=== PATIENT | male | born 1955 | race Hispanic/Latino ===

== ENCOUNTER 2019-01-07 16:16 | Emergency (ER) | payer SELFPAY ==
[2019-01-07 17:48] LABS: Absolute Lymphocytes (CBC) 1.8 K/uL (0.7-4.9); Basophils % 0.3 % (0-1.3); Hematocrit 40.2 % (39.6-49.0); Lymphocytes % 22.6 % (15.3-44.8); MPV 8.5 fL (7.6-11.3); RBC Red Blood Cell Count 4.31 M/uL (4.33-5.43)
[2019-01-07 17:52] LABS: Protime INR 1.12
--- NOTE | 2019-01-07 17:57 | RAD REPORT ---
EXAM DESCRIPTION: RAD - Chest Single View - 01/07/2019 5:47 pm CLINICAL HISTORY: weakness Chest pain. COMPARISON: No comparisons FINDINGS: Portable technique limits examination quality. Mild linear atelectasis is present in the right lung base. The lungs are otherwise clear. The heart i s normal in size. Old bilateral posterior rib fractures and right clavicular fracture seen. IMPRESSION: No acute intrathoracic process suspected.
--- NOTE | 2019-01-07 18:01 | RAD REPORT ---
EXAM DESCRIPTION: RAD - Forearm Right - 01/07/2019 5:47 pm CLINICAL HISTORY: fall 2 days ago;Pain COMPARISON: <Comparisons> FINDINGS: No acute fracture seen.
--- NOTE | 2019-01-07 18:01 | RAD REPORT ---
EXAM DESCRIPTION: RAD - Forearm Left - 01/07/2019 5:47 pm CLINICAL HISTORY: fall 2 days ago;Pain COMPARISON: <Comparisons> FINDINGS: No acute fracture seen.
[2019-01-07] MEDS ORDERED: NA CHLORIDE 0.9% 1,000 ML ONE (18:08)
[2019-01-07] MEDS ORDERED: ONDANSETRON 4 MG/2 ML VIAL ONE (18:08)
[2019-01-07] MEDS ORDERED: FENTANYL CITR 100 MCG/2 ML ONE (18:08)
[2019-01-07 19:56] LABS: ALT/SGPT 41 U/L (12-78); Albumin 3.4 g/dL (3.4-5.0); Alkaline Phosphatase 106 U/L (45-117); Bicarbonate 23 mmol/L (21-32); Bilirubin Total 0.7 mg/dL (0.2-1.0); Glucose Level 88 mg/dL (74-106); NT PRO-BNP 135 pg/mL (<125); Protein, Total 7.4 g/dL (6.4-8.2); Sodium Level 139 mmol/L (136-145); Troponin (Emerg Dept Use Only) < 0.02 ng/mL (0.0-0.045)
[2019-01-07 19:58] LABS: AST/SGOT 38 U/L (15-37); Potassium 3.8 mmol/L (3.5-5.1)
[2019-01-07 20:00] LABS: BUN Blood Urea Nitrogen 22 mg/dL (7-18)
[2019-01-07 20:01] LABS: Bilirubin Direct 0.2 mg/dL (0-0.2)
--- NOTE | 2019-01-07 20:45 | RAD REPORT ---
EXAM DESCRIPTION: CT - Head C Spine Cap Cameron Alarcon - 01/07/2019 8:25 pm CLINICAL HISTORY: Trauma, head and neck injury. Chest, abdomen and pelvis pain. fall;Pain COMPARISON: No comparisons TECHNIQUE: CT head without contrast. CT cervical spine without contrast with coronal and sagittal reformatted images. CT chest, abdomen and pelvis with IV contrast (approximately 100 mL nonionic IV contrast) with young l and sagittal reformatted images of the spine. All CT scans are performed using dose optimization technique as appropriate and may include automated exposure control or mA/KV adjustment according to patient size. FINDINGS: CT HEAD WITHOUT CONTRAST: No intracranial hemorrhage, hydrocephalus or extra-axial fluid collection. Mild generalized brain atr ophy. No areas of brain edema or midline shift. The paranasal sinuses and mastoids are clear. The calvarium is intact. CT CERVICAL SPINE WITHOUT CONTRAST: No acute fracture or subluxation. 3 mm degenerative anterolisthesis is present of C3 on 4 and C4 on 5 . Disc thinning with posterior osteophyte is present at C5-6. 4 mm degenerative retrolisthesis of C6 on 7. The prevertebral soft tissues are normal in thickness. CT CHEST, ABDOMEN, PELVIS WITH CONTRAST: Linear subsegmental atelectasis is seen in both posterior lung bases.Several healed bilateral rib fra ctures are seen involving the posterior thoracic ribs. Old right clavicular fracture also noted.No pn eumothorax or pericardial/pleural fluid. No evidence of intra-abdominal visceral injury, free fluid or free air. No concerning pelvic findings. Mild lumbar spondylosis is present. An acute fracture is not seen. IMPRESSION: Negative for acute traumatic findings.
--- NOTE | 2019-01-07 21:35 | ER ---
Nurse's Notes [facility] Name: Ramírez Joyner Age: 63 yrs Sex: Male : 1955 Arrival Date: 01/07/2019 Time: 16:18 Bed 17 Private MD: Diagnosis: Headache;Fall on same level from slipping, tripping and stumbling;Pain in right forearm;Pain in left forearm;Generalized abdominal pain Presentation: 01/07 16:20 Presenting complaint: Patient states: headache has been intermittent, abd tightness. sv Reports that he fell a couple of days ago. Transition of care: patient was not received from another setting of care. Onset of symptoms was January 07, 2019. Risk Assessment: Do you want to hurt yourself or someone else? Patient reports no desire to harm self or others. Care prior to arrival: None. 16:20 Method Of Arrival: Wheelchair sv 16:20 Acuity: DEBBIE 3 sv 16:56 Initial Sepsis Screen: Does the patient meet any 2 criteria? No. Patient's initial tw2 sepsis screen is negative. Does the patient have a suspected source of infection? No. Patient's initial sepsis screen is negative. Historical: - Allergies: 16:21 No Known Allergies; sv - PMHx: 16:21 CVA; sv - PSHx: 16:21 stomach ulcer; sv - Immunization history:: Adult Immunizations. - Social history:: Smoking status: . - Ebola Screening: : Patient denies travel to an Ebola-affected area in the 21 days before illness onset. Screenin:55 Abuse screen: Denies threats or abuse. Nutritional screening: No deficits noted. tw2 Tuberculosis screening: No symptoms or risk factors identified. Fall Risk Secondary diagnosis (15 points) impaired mobility, CVA. Assessment: 17:10 General: Appears in no apparent distress. uncomfortable, Behavior is calm, cooperative, aj1 appropriate for age. Pain: Complains of pain in face, abdomen, right arm and left arm Pain does not radiate. Pain currently is 10 out of 10 on a pain scale. Pain began 2-3 days ago. Neuro: Level of Consciousness is awake, alert, obeys commands, Oriented to person, place, time, situation, Receiving Team Member are weak bilaterally Speech is normal, Facial droop on right, Reports dizziness, headache. Cardiovascular: Heart tones S1 S2 present Patient's skin is warm and dry. Rhythm is regular. Respiratory: Airway is patent Respiratory effort is even, unlabored, Respiratory pattern is regular, symmetrical, Breath sounds are clear bilaterally. GI: Abdomen is flat, non-distended, Bowel sounds present X 4 quads. Abd is soft X 4 quads Abdomen is tender to palpation X 4 quads. Reports nausea, Patient currently denies diarrhea, vomiting. : No signs and/or symptoms were reported regarding the genitourinary system. EENT: No signs and/or symptoms were reported regarding the EENT system. Derm: No signs and/or symptoms reported regarding the dermatologic system. Skin is pink, warm \T\ dry. normal. Musculoskeletal: No signs and/or symptoms reported regarding the musculoskeletal system. Circulation, motion, and sensation intact. 18:10 Reassessment: Patient appears in no apparent distress at this time. No changes from [facility] previously documented assessment. Patient and/or family updated on plan of care and expected duration. Pain level reassessed. Patient is alert, oriented x 3, equal unlabored respirations, skin warm/dry/pink. 19:30 Reassessment: Patient appears in no apparent distress at this time. No changes from previously documented assessment. Patient and/or family updated on plan of care and expected duration. Pain level reassessed. Patient is alert, oriented x 3, equal unlabored respirations, skin warm/dry/pink. 20:51 Reassessment: Patient appears in no apparent distress at this time. No changes from previously documented assessment. Patient and/or family updated on plan of care and expected duration. Pain level reassessed. Patient is alert, oriented x 3, equal unlabored respirations, skin warm/dry/pink. 21:31 Reassessment: Patient appears in no apparent distress at this time. No changes from previously documented assessment. Patient and/or family updated on plan of care and expected duration. Pain level reassessed. Patient is alert, oriented x 3, equal unlabored respirations, skin warm/dry/pink. Provider at bedside explaining POC. Vital Signs: 16:21 BP 115 / 73; Pulse 70; Resp 18; Temp 97; Pulse Ox 99% ; Weight 61.23 kg; Height 5 ft. 5 sv in. (165.10 cm); 19:00 BP 151 / 80; Pulse 62; Resp 18; Pulse Ox 97% on R/A; aj1 20:30 BP 159 / 77; Pulse 65; Resp 18; Pulse Ox 97% ; wh 21:32 BP 139 / 77; Pulse 65; Resp 18; Pulse Ox 98% ; wh 16:21 Body Mass Index 22.46 (61.23 kg, 165.10 cm) sv ED Course: 16:18 Patient arrived in ED. mr 16:21 Triage completed. sv 16:21 Arm band placed on. sv 16:52 Bed in low position. Call light in reach. Side rails up X 1. Adult w/ patient. tw2 16:54 Ethan Levin PA is PHCP. cp 16:54 Ethan Bullock MD is Attending Physician. cp 17:09 Aracelis Mcdonald, JANETH is Primary Nurse. aj1 17:10 No provider procedures requiring assistance completed. aj1 17:29 Radiology exam delayed due to lab results not completed at this time. (BUN/Creatinine). me 17:35 Initial lab(s) drawn, by me, sent to lab. Missed attempt(s): 20 gauge in right forearm. mh5 17:36 Lipase Sent. mh5 17:36 Basic Metabolic Panel Sent. 5 17:36 CBC with Diff Sent. 5 17:36 LFT's Sent. 5 17:36 Magnesium Sent. 5 17:36 NT PRO-BNP Sent. 5 17:36 PT-INR Sent. 5 17:36 Troponin (emerg Dept Use Only) Sent. 5 17:48 XRAY Chest (1 view) In Process Unspecified. EDMS 17:48 XRAY Forearm LEFT In Process Unspecified. EDMS 17:48 XRAY Forearm RIGHT In Process Unspecified. EDMS 18:00 EKG done, by senior environmental technician. reviewed by Ethan LEON. cox monett 18:25 Radiology exam delayed due to lab results not completed at this time. (BUN/Creatinine). sj 18:46 Radiology exam delayed due to lab results not completed at this time. (BUN/Creatinine). 19:02 Note: labs recollect needed. Radiology exam delayed due to lab results not completed at this time. (BUN/Creatinine). 19:16 Lab(s) recollected, by me, sent to lab. [facility] 19:20 Radiology exam delayed due to lab results not completed at this time. (BUN/Creatinine). 19:33 Radiology exam delayed due to lab results not completed at this time. (BUN/Creatinine). me 19:43 Mitchell Benavidez MD is Attending Physician. 20:26 CT Traumagram (Head C Spine CAP W Con) In Process Unspecified. EDMS 20:26 CT completed. Patient tolerated procedure well. Patient moved to CT. Patient moved back me from CT. 22:10 IV discontinued, intact, bleeding controlled, No redness/swelling at site. Administered Medications: 18:17 Drug: NS 0.9% 500 ml Route: IV; Rate: bolus; Site: right antecubital; [facility] 22:10 Follow up: Response: No adverse reaction; IV Status: Completed infusion 18:17 Drug: NS 0.9% 1000 ml Route: IV; Rate: 100 ml/hr; Site: right antecubital; aj 22:10 Follow up: Response: No adverse reaction; IV Status: Completed infusion 18:17 Drug: fentaNYL (PF) 25 mcg {Note: RASS score 0.} Route: IVP; Site: right antecubital; [facility] 22:10 Follow up: Response: No adverse reaction; Pain is decreased; RASS: Alert and Calm (0) 18:18 Drug: Zofran 4 mg Route: IVP; Site: right antecubital; [facility] 22:16 Follow up: Response: No adverse reaction; Nausea is decreased 21:45 Drug: Tylenol 650 mg Route: PO; 22:16 Follow up: Response: No adverse reaction 21:47 Drug: Ibuprofen 600 mg Route: PO; 22:16 Follow up: Response: No adverse reaction Outcome: 21:34 Discharge ordered by . 22:09 Discharged to home via wheelchair, with family. 22:09 Condition: stable 22:09 Discharge instructions given to patient, family, Instructed on discharge instructions, follow up and referral plans. POC Abdominal pain Demonstrated understanding of instructions, follow-up care, POC 22:17 Patient left the ED. Signatures: Dispatcher [employer] EDMS Aracelis Mcdonald RN RN aj1 Naomi Tsang RN RN sv Rivera, Jaqueline Garner, Ethan Maya PA PA cp Wise, Tara, RN RN 2 Tree Steele [facility] Cyn Still Shakira 3 Corrections: (The following items were deleted from the chart) 16:22 16:20 Presenting complaint: Patient states: headache has been intermittent, abd sv tightness. sv
--- NOTE | 2019-01-07 21:35 | EDPHYS ---
Physician Documentation [facility] Name: Ramírez Joyner Age: 63 yrs Sex: Male : 1955 Arrival Date: 01/07/2019 Time: 16:18 Bed 17 Private MD: ED Physician Mitchell Benavidez HPI: 01/07 17:15 This 63 yrs old Male presents to ER via Wheelchair with complaints of cp Abdominal Pain, Headache. 17:15 The patient presents with abdominal pain that is diffuse. Onset: The symptoms/episode cp began/occurred 2 day(s) ago. 17:15 Associated signs and symptoms: Pertinent positives: headache, Pertinent negatives: cp blood in stools, chest pain, constipation, diarrhea, dysuria, fever, palpitations, testicular pain. Severity of pain: in the emergency department the pain is unchanged. Patient reports fall from standing 2 days ago with pain to right forearm and left forearm. Historical: - Allergies: 16:21 No Known Allergies; sv - PMHx: 16:21 CVA; sv - PSHx: 16:21 stomach ulcer; sv - Immunization history:: Adult Immunizations. - Social history:: Smoking status: . - Ebola Screening: : Patient denies travel to an Ebola-affected area in the 21 days before illness onset. ROS: 17:20 Constitutional: Negative for body aches, chills, fever, poor PO intake. cp 17:20 Eyes: Negative for injury, pain, redness, and discharge. cp 17:20 ENT: Negative for drainage from ear(s), ear pain, sore throat, difficulty swallowing, difficulty handling secretions. 17:20 Neck: Positive for tenderness, Negative for pain with movement, stiffness. 17:20 Cardiovascular: Positive for palpitations, Negative for chest pain. 17:20 Respiratory: Negative for cough, shortness of breath, wheezing. 17:20 Abdomen/GI: Positive for abdominal pain, Negative for vomiting, diarrhea, constipation, black/tarry stool, rectal bleeding. 17:20 Skin: Negative for rash. 17:20 Neuro: Positive for headache, Negative for altered mental status, syncope, weakness. 17:20 All other systems are negative. Exam: 17:25 Constitutional: The patient appears in no acute distress, alert, awake, cp non-diaphoretic, non-toxic, well developed, frail. 17:25 Head/face: Noted is abrasion(s), that are mild, of the forehead, right cheek and left cp cheek, Sinus tenderness, is not appreciated. 17:25 Eyes: Periorbital structures: swelling, is not appreciated, ecchymosis, is not appreciated, Pupils: equal, round, and reactive to light and accomodation, Extraocular movements: intact throughout, Conjunctiva: normal, no exudate, no injection, Lids and lashes: appear normal, bilaterally. 17:25 ENT: External ear(s): are unremarkable, Ear canal(s): are normal, clear, TM's: bulging, is not appreciated, bilaterally, dullness, bilaterally, erythema, is not appreciated, bilaterally, Nose: is normal, Mouth: Lips: moist, Oral mucosa: pink and intact, moist, Posterior pharynx: is normal, airway is patent, no erythema, no exudate. 17:25 Neck: C-spine: C-collar placed in ED, vertebral tenderness, that is mild, appreciated at C5 and C6, crepitus, is not appreciated. 17:25 Chest/axilla: Inspection: normal, Palpation: crepitus, is not appreciated, tenderness, is not appreciated. 17:25 Cardiovascular: Rate: normal, Rhythm: regular, Pulses: Pulses are 2+ in right radial artery and left radial artery. Edema: is not appreciated, JVD: is not appreciated. 17:25 Respiratory: the patient does not display signs of respiratory distress, Respirations: normal, no use of accessory muscles, no retractions, no splinting, no tachypnea, labored breathing, is not present, Breath sounds: are clear throughout, no decreased breath sounds, no stridor, no wheezing. 17:25 Abdomen/GI: Inspection: abdomen appears normal, Bowel sounds: active, all quadrants, Palpation: soft, in all quadrants, moderate abdominal tenderness, in all quadrants, rebound tenderness, is not appreciated, voluntary guarding, is elicited in all quadrants. 17:25 Back: pain, that is mild, ROM is painful, vertebral tenderness, is not appreciated. 17:25 Musculoskeletal/extremity: Extremities: grossly normal except: noted in the left forearm and right forearm: pain, tenderness, There is no evidence of deformity, Pulses: noted to be 2+ in the right radial artery and left radial artery. 17:25 Skin: no rash present. 17:25 Neuro: Orientation: to person, place \T\ time. Mentation: is normal, Motor: no acute changes, Sensation: no obvious gross deficits. 17:47 ECG was reviewed by the Attending Physician. Vital Signs: 16:21 BP 115 / 73; Pulse 70; Resp 18; Temp 97; Pulse Ox 99% ; Weight 61.23 kg; Height 5 ft. 5 sv in. (165.10 cm); 19:00 BP 151 / 80; Pulse 62; Resp 18; Pulse Ox 97% on R/A; aj1 20:30 BP 159 / 77; Pulse 65; Resp 18; Pulse Ox 97% ; wh 21:32 BP 139 / 77; Pulse 65; Resp 18; Pulse Ox 98% ; wh 16:21 Body Mass Index 22.46 (61.23 kg, 165.10 cm) sv MDM: 16:56 Patient medically screened. nahid 17:30 Differential diagnosis: bowel obstruction, cholecystitis, Cholelithiasis, cp diverticulitis, pancreatitis, urinary tract infection, fracture, multiple trauma. 21:33 Data reviewed: vital signs, nurses notes, lab test result(s), EKG, radiologic studies, cp CT scan, plain films. 21:33 Test interpretation: by ED physician or midlevel provider: ECG, plain radiologic cp studies. Counseling: I had a detailed discussion with the patient and/or guardian regarding: the historical points, exam findings, and any diagnostic results supporting the discharge/admit diagnosis, lab results, radiology results, the need for outpatient follow up, an machine i cutter, to return to the emergency department if symptoms worsen or persist or if there are any questions or concerns that arise at home. Response to treatment: the patient's symptoms have markedly improved after treatment, and as a result, I will discharge patient. 01/07 17:10 Order name: Basic Metabolic Panel; Complete Time: 20:03 cp 01/07 20:04 Interpretation: Normal except: CL 108; BUN 22. cp 01/07 17:10 Order name: CBC with Diff; Complete Time: 18:23 cp 01/07 17:10 Order name: LFT's; Complete Time: 20:03 cp 01/07 17:10 Order name: Magnesium; Complete Time: 20:03 cp 01/07 17:10 Order name: NT PRO-BNP; Complete Time: 20:03 cp 01/07 17:10 Order name: PT-INR; Complete Time: 18:23 cp 01/07 17:10 Order name: Troponin (emerg Dept Use Only); Complete Time: 20:03 cp 01/07 17:10 Order name: XRAY Chest (1 view); Complete Time: 18:23 cp 01/07 17:10 Order name: XRAY Forearm LEFT; Complete Time: 18:23 cp 01/07 17:10 Order name: XRAY Forearm RIGHT; Complete Time: 18:23 cp 01/07 17:12 Order name: Lipase; Complete Time: 18:23 cp 01/07 17:12 Order name: CT Traumagram (Head C Spine CAP W Con); Complete Time: 21:06 cp 01/07 21:07 Interpretation: Report reviewed. 01/07 17:10 Order name: EKG; Complete Time: 17:11 cp 01/07 17:10 Order name: Cardiac monitoring; Complete Time: 17:52 cp 01/07 17:10 Order name: EKG - Nurse/Tech; Complete Time: 17:52 cp 01/07 17:10 Order name: IV Saline Lock; Complete Time: 17:52 cp 01/07 17:10 Order name: Labs collected and sent; Complete Time: 17:52 cp 01/07 17:10 Order name: O2 Per Protocol; Complete Time: 17:28 cp 01/07 17:10 Order name: O2 Sat Monitoring; Complete Time: 17:28 cp 01/07 17:12 Order name: C-Collar; Complete Time: 18:17 cp 01/07 18:59 Order name: Labs - recollect needed; Complete Time: 19:19 bd EC:47 Rate is 57 beats/min. Rhythm is regular. QRS [place] is Normal. AL interval is normal. QRS cp interval is normal. QT interval is normal. Interpreted by me. Reviewed by me. Administered Medications: 18:17 Drug: NS 0.9% 500 ml Route: IV; Rate: bolus; Site: right antecubital; aj1 22:10 Follow up: Response: No adverse reaction; IV Status: Completed infusion wh 18:17 Drug: NS 0.9% 1000 ml Route: IV; Rate: 100 ml/hr; Site: right antecubital; aj1 22:10 Follow up: Response: No adverse reaction; IV Status: Completed infusion 18:17 Drug: fentaNYL (PF) 25 mcg {Note: RASS score 0.} Route: IVP; Site: right antecubital; aj1 22:10 Follow up: Response: No adverse reaction; Pain is decreased; RASS: Alert and Calm (0) 18:18 Drug: Zofran 4 mg Route: IVP; Site: right antecubital; aj1 22:16 Follow up: Response: No adverse reaction; Nausea is decreased 21:45 Drug: Tylenol 650 mg Route: PO; 22:16 Follow up: Response: No adverse reaction 21:47 Drug: Ibuprofen 600 mg Route: PO; 22:16 Follow up: Response: No adverse reaction Disposition: :30 Chart complete. 01/08 07:18 Co-signature as Attending Physician, Mitchell Benavidez MD I agree with the assessment and tw4 plan of care. Disposition: 01/07/19 21:34 Discharged to Home. Impression: Headache, Fall on same level from slipping, tripping and stumbling, Pain in right forearm, Pain in left forearm, Generalized abdominal pain. - Condition is Stable. - Discharge Instructions: Abdominal Pain, Adult, General Headache Without Cause, Fall Prevention in the Home, Musculoskeletal Pain. - Medication Reconciliation Form, Thank You Letter, Antibiotic Education, Prescription Opioid Use form. - Follow up: Private Physician; When: 1 - 2 days; Reason: Recheck today's complaints. - Problem is new. - Symptoms have improved. Signatures: Dispatcher [employer] EDMS Jaylin Cervantes Angela, RN RN aj1 Naomi Tsang RN RN sv Anderson, Corey, MD MD cha Page, Corey, PA PA cp Wise, Tara, RN RN tw2 Cyn Still Mitchell Benavidez MD MD tw4 Corrections: (The following items were deleted from the chart) 01/07 22:17 21:34 01/07/2019 21:34 Discharged to Home. Impression: Headache; Fall on same level wh from slipping, tripping and stumbling; Pain in right forearm; Pain in left forearm; Generalized abdominal pain. Condition is Stable. Forms are Medication Reconciliation Form, Thank You Letter, Antibiotic Education, Prescription Opioid Use. Follow up: Private Physician; When: 1 - 2 days; Reason: Recheck today's complaints. Problem is new. Symptoms have improved. cp
[2019-01-07] MEDS ORDERED: IBUPROFEN 200 MG TAB PO ONE (21:39)
[2019-01-07] MEDS ORDERED: ACETAMINOPHEN 325 MG TABLET ONE (21:39)
[2019-01-07] MEDS ORDERED: IBUPROFEN 400 MG TAB ONE (21:39)
[2019-01-07 23:10] VITALS: TEMP 97
[2019-01-07 23:15] VITALS: BP 139/77; O2SAT 98
--- NOTE | 2019-01-08 06:30 | EKG ---
Test Date: 2019-01-07 Test Time: 17:44:08 Event Designer: DEVON MEASUREMENT RESULTS: Intervals: Rate: 57 IA: 138 QRSD: 82 QT: 446 QTc: 434 [place]: P: 81 IA: 138 QRS: 7 T: 43 INTERPRETIVE STATEMENTS: Sinus bradycardia Otherwise normal ECG No previous ECG available for comparison Electronically Signed On 01-08-19 06:29:45 CDT by Jude Mora
== END 2019-01-07 22:17 | disposition home or self-care (01) ==
LOC: ER 16:16
DX: R10.84 Generalized abdominal pain (principal); M79.632 Pain in left forearm; M79.631 Pain in right forearm; W19.XXXA Unspecified fall, initial encounter
CPT/HCPCS: 36415; 70450; 71045; 71260; 72125; 74177; 80048; 80076; 83690; 83735; 83880; 84484; 85025; 85610; 93005; 96361; 96374; 96375; 99284; J2405; J3010; J7030; Q9967

== ENCOUNTER 2019-05-15 15:32 | Inpatient (IN) | payer OTHER ==
--- NOTE | 2019-05-16 15:28 | R.PREADM ---
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 Srinivasan Carey M.D. MR# [id number] NAME JARROD JOYNER PEN ADDRESS [address] PHONE [facility] [id number] DATE OF 1955 AGE 64 SSN# [id number] GENDER male MARITAL STATUS Single (Never ) RACE ADMIT FROM 02 - [facility] PRE-HOSPITAL LIVING SETTING 01 - Home (private home/apt. board/care, assisted living, assisted, transitional living) HOME TYPE AND DETAILS Type of home: single family house # of levels in the residence: 1 # of steps within the residence: 2 # of steps to enter the residence: 2 PRE-HOSPITAL LIVING WITH Family/Relatives FAMILY SUPPORT Yes PRIMARY FAMILY CONTACT NAME LUIS HELLER PHONE PRIMARY FAMILY CONTACT ON ADM.? [id number] IS PRIMARY FAMILY CONTACT AUTH. REP.? no 1ST EMERGENCY CONTACT LUIS HELLER PHONE 1ST CONTACT ON ADM. [phone] IS 1ST CONTACT AUTH. REP.? no PHONE 2ND CONTACT ON ADM.? no PATIENT EMPLOYMENT STATUS Retired (for age) PATIENT EMPLOYER No Employer PAYOR INFORMATION: 1ST PAYOR NAME Medicare 1ST PAYOR PHONE 1ST PAYOR INJURY/ILLNESS DUE TO ACCIDENT? No ANOTHER CONSTITUTION PARTY RESPONSIBLE? No PRIMARY REHAB/ACUTE DIAGNOSIS: SEVERE CERVICAL STENOSIS AND CORD COMPRESSION ONSET DATE 05/13/2019 REHAB IMPAIRMENT CATEGORY (MAINOR): 05 Nontraumatic spinal cord injury (NTSCI) MEETS 60% rule PRIMARY DIAGNOSIS-RELATED SURGERIES: ANTERIOR CERVICAL FUSION ON 05/13/2019 COMORBID REHAB/ACUTE DIAGNOSES: - N/A CERVICAL MYELOPATHY SUMMARY OF ACUTE HOSPITALIZATION: Pt. is a 64 yo Right-handed male. On 05/13/2019 he was admitted to Acute care hospital with diagnosis SEVERE CERVICAL STENOSIS AND CORD COMPRESSION. His impairment category is Spinal Cord Dysfunction 04 - Other Non-traumatic Spinal Cord Dysfunction (04.130). Pre-morbidly, Pt. was independent/mod-I in Locomotion, Balance, Safety Awareness, Transfers Control, Sphincter Control, Social Cognition, Self-Care, Communication, and Endurance; and he had good Locomot ion, Balance, Safety Awareness, Social Cognition, Transfers Control, Self-Care, Sphincter Control, Co mmunication, and Endurance. Currently, he has deficits of Locomotion, Safety Awareness, Balance, Transfers Control, Self-Care, Co mmunication, and Endurance. Pt. is now referred to [facility] for acute in-patient rehabilitation in order to maximize patient's functional independence in activities of daily living, strength, ROM, and mobi lity. Patient has realistic goal of being discharged at assistance level 6-Jett to reside at Home with Fam tara/Relatives. Jarrod Joyner is a 64 year old man, who lives in a single story house independently with his spouse and has no stairs to enter her home. He was independently livin g at home with his before having surgery. He has a history of slowly progressing weakness and inability to walk, right upper extreamity weakness and contracture, who was admitted for semiurgent C3-6 ACDF. Patient has been admitted at [facility] and is hemodynamically stable with relatively stable labs. He is now medically stable but in need of 24 hour nursing, doctor supervision and oversight while receiving active and ongoing participate in 3 hours of therapy a day/15 hours per week and receive care with intensive interdisciplinary approach. PAST MEDICAL HISTORY CERVICAL MYELOPATHY MEDICATION ALLERGIES: No Known Drug Allergies (NKDA) ENVIRONMENTAL ALLERGIES: - Substance Allergies None Known - Other Allergies None Known CODE STATUS: Full code WEIGHT/HEIGHT/BMI: WEIGHT 135 lbs HEIGHT 5' 5" BMI 22.5 DIET: - Diet Type Regular - Diet - Solid Texture Regular - Diet - Liquid Texture Regular - Tube Feed N/A SKIN DIAGRAM: Incision on Neck; extent - small; stage - NS(Not Stageable). Treatment - Per Physician's Orders. REVIEW OF SYSTEMS: - Gen Alert and awake Lying in bed No apparent distress Oriented to: person, time, and place - Vital Signs Temperature: 97.9 F SBP/DBP: 119/57 Pulse: 59 Resp: 16 Vital signs stable, afebrile - CVS RRR VITAL SIGNS Temperature: 97.9 SBP/DBP: 119/57 Pulse: 59 Resp: 16 Vital signs stable, afebrile MEDICATIONS/TREATMENT: Other- See attached MAR (Medication Administration Record). CURRENT SPHINCTER CONTROL: Pre-hospital bladder status: incontinent # of bladder accidents in the last 7 days prior to screenin Pre-hospital bowel status: continent # of bowel accidents in the last 7 days prior to screenin Last Bowel Movement Date: 05/12/2019 CURRENT LOCOMOTION STATUS: distance walked 70 feet DETAILED CURRENT FUNCTIONAL STATUS: - Bladder Bladder control device used: diaper Bladder medication used: NA accident frequency: Ind - No accidents in the past 7 days - Bowel accident frequency: Ind - No accidents in the past 7 days - Walking score based on distance walked: 0(N/A) score based on distance walked: 2(5149ft) - Wheelchair score based on distance traveled: 0(N/A) QI SCORES: - Self-Care A. Eating 06-Independent B. Oral hygiene 03-Partial/moderate assistance C. Toileting hygiene 02-Substantial/maximal assistance E. Shower/bathe self 03-Partial/moderate assistance F. Upper body dressing 03-Partial/moderate assistance G. Lower body dressing 03-Partial/moderate assistance H. Putting on/taking off footwear 03-Partial/moderate assistance - Mobility A. Roll left and right 03-Partial/moderate assistance B. Sit to lying 03-Partial/moderate assistance C. Lying to sitting on side of bed 03-Partial/moderate assistance D. Sit to stand 03-Partial/moderate assistance E. Chair/ryh-jb-[id number] transfer 03-Partial/moderate assistance F. Toilet transfer 03-Partial/moderate assistance G. Car transfer 88-Not attempted due to medical condition or safety concerns I. Walk 10 feet 03-Partial/moderate assistance J. Walk 50 feet with two turns 02-Substantial/maximal assistance K. Walk 150 feet 88-Not attempted due to medical condition or safety concerns L. Walking 10 feet on uneven surfaces 88-Not attempted due to medical condition or safety concerns M. 1 step (curb) 88-Not attempted due to medical condition or safety concerns N. 4 steps 88-Not attempted due to medical condition or safety concerns O. 12 steps 88-Not attempted due to medical condition or safety concerns P. Picking up object 06-Independent R. Wheel 50 feet with two turns 88-Not attempted due to medical condition or safety concerns S. Wheel 150 feet 88-Not attempted due to medical condition or safety concerns - Bladder and Bowel Bladder continence 3-Incontinent daily Bowel continence 2-Frequently incontinent - Endurance Fair - Balance Fair - Safety Awareness Fair CURRENT FUNC. DEFICITS: Mobility, Endurance, Balance, Safety Awareness, and Self-Care CURRENT / PREVIOUS ASSISTIVE DEVICES: 3-in-1 Commode [facility] Bed Rolling Walker Shower Chair HISTORY OF FALLS. HAS THE PATIENT HAD TWO OR MORE FALLS IN THE PAST YEAR OR ANY FALL WITH INJURY IN T HE PAST YEAR?: No PRIOR SURGERY. DID THE PATIENT HAVE MAJOR SURGERY DURING THE 100 DAYS PRIOR TO ADMISSION?: No THERAPY NOTES FROM ACUTE CARE: Attached. SPECIAL NEEDS: - Safety Concerns Skin breakdown precautions needed due to skin breakdown risk PATIENT NEEDS ACTIVE AND ONGOING THERAPEUTIC INTERVENTION OF MULTIPLE THERAPY DISCIPLINES, INCLUDING: - Orthotics/Prosthetics Orthotic Evaluation. Splinting/Casting. - Dietary and Nutrition Adequate Nutrition. Nutritional Education. Nutritional Supplements. PATIENT NEEDS CLOSE MEDICAL SUPERVISION BY A REHABILITATION PHYSICIAN FOR: Coordination of Treatment Team Medical and Co-Morbidity Management Post-Op Complications Wound Care PATIENT REQUIRES 24X7 REHAB NURSING FOR MEDICAL AND FUNCTIONAL MGT. OF THE FOLLOWING DEFICITS: Disease Management Medication Management Patient/Family Education Providing Safe Environment Skin Integrity PATIENT REQUIRES INTENSIVE, COORDINATED INTERDISCIPLINARY APPROACH TO REHAB: Arranging Home Equipment/Services Discharge Planning Family Intervention/Training Hat Mender/Case Management PATIENT REHAB POTENTIAL: Jorge JOYNER is able and expected to receive 3 hours of individualized therapy daily on at least 5 of ev ludmila 7 days Jorge JOYNER's prognosis for significant practical improvement within a reasonable period of time appear s Fair Expected level of measurable improvement will be of a practical value to Jorge JOYNER's functional capac ity or adaptations to impairments Has a viable Discharge Plan Medically appropriate; condition is sufficiently stable to participate in intensive rehab program DISCHARGE PLAN: - Estimated Length of Stay (days) 16. - Consensus on plan Discharge plan has been discussed with primary caregiver. Patient/Family is in agreement with the dave n. Primary caregiver is in agreement with the plan. - Patient/Family Goals Return home with assistance. - Planned Living Setting Upon Discharge Home, to live with Family/Relatives. Transitional Living. RECOMMENDED CARE LEVEL: IRF RECOMMENDATION DETAILS: Recommended Admission to Comprehensive Rehabilitation Program to Increase Functional [place] SCREENER'S COMPLETENESS CONFIRMATION: - Screening Confirmation The patient data collection on this preadmission screening form is finished PHYSICIANS REVIEW AND ADMISSION DETERMINATION Admit - Based on my review of the Pre-Admission Screening results, in my medical judgment and experie nce, I concur with the findings and recommend admission to [facility], as this patient requires an IRF level of care. SIGNATURE PANEL: Clinical Liaison - [electronically] signed by Nathaniel White on 05/15/2019 at 18:08 (WHEELABRATOR OPERATOR) Clinical Liaison - [electronically] signed by Taye Ruiz on 05/15/2019 at 18:13 (WHEELABRATOR OPERATOR) Physician Reviewer - [electronically] signed by Dr. Srinivasan Carey M.D. on 05/16/2019 at 15:27 (WHEELABRATOR OPERATOR )
--- OUTSIDE RECORDS SUMMARY | 2019-05-16 18:24 | XMS REPORT | Summary of Care ---
:1955 Author Organization [facility] Address [address] [place] [address] Care Team Providers Name Role Phone Pcp, Patient Does Not Have A Primary Care Provider Reason for Referral (Routine) Status Reason Specialty Diagnoses / Referred By Referred To Procedures Contact Contact New Request Neurological Diagnoses Intervertebral cervical disc disorder with myelopathy, cervical region Clint Kay Surgery Procedures CONSULT/REFERRAL NEUROSURGERY MD Son [address] [place] [id number] MRI/CAT Scan (Routine) Status Reason Specialty Diagnoses / Referred By Referred To Procedures Contact Contact Closed Diagnostic Diagnoses Intervertebral cervical disc disorder with myelopathy, cervical region Clint Kay Radiology Procedures MR CERVICAL SPINE WO CONTRAST MD Son [address] [place] [phone] Reason for Visit Reason Comments New Patient weakness and fall Encounter Details Date Type Department Care Team Description 04/09/2019 Office Visit [facility] Clint Kay Intervertebral cervical Neurology-Shalom Cline MD disc disorder with [address] myelopathy, cervical Drive, [address] [facility]. region (Primary Dx) [place] [id number] Allergies No Known Allergiesdocumented as of this encounter (statuses as of 04/14/2019) Medications Medication Sig Dispensed Refills Start Date End Date Status gabapentin 100 mg TAKE 1 CAPSULE BY 0 03/29/2019 Active capsule MOUTH EVERY EVENING mirtazapine 7.5 mg Take 7.5 mg by 0 03/29/2019 Active tablet mouth at bedtime. SERTraline 100 mg Take 100 mg by 0 03/29/2019 Active tablet mouth daily. gentamicin 0.3 % 1 Drop every 4 0 Active ophthalmic drops (four) hours. atorvastatin 40 mg Take 40 mg by 0 Active tablet mouth at bedtime. vitamin B complex (B Take by mouth. 0 Active COMPLEX 1 ORAL) naproxen sodium (ALEVE) Take 220 mg by 0 Active 220 mg tablet mouth 2 (two) times daily with meals. acetaminophen (TYLENOL) Take by mouth 0 Active 325 mg tablet every 6 (six) hours as needed. documented as of this encounter (statuses as of 04/14/2019) Active Problems No known active problemsdocumented as of this encounter (statuses as of 2019) Social History Tobacco Use Types Packs/Day Years Used Date Current Every Day Smoker Cigarettes 40 Tobacco Cessation: Ready to Quit: No Sex Assigned at Date Recorded Not on file Job Start Date Occupation Industry Not on file Not on file Not on file Travel History Travel Start Travel End No recent travel history available. documented as of this encounter Last Filed Vital Signs Vital Sign Reading Time Taken Comments Blood Pressure 147/76 04/09/2019 11:58 AM [employer] Pulse 98 04/09/2019 11:58 AM [employer] Temperature 36.4 C (97.5 F) 04/09/2019 11:58 AM [employer] Respiratory Rate 20 04/09/2019 11:58 AM [employer] Oxygen Saturation 98% 04/09/2019 11:58 AM [employer] Inhaled Oxygen Concentration - - Weight - - Height 157.5 cm (5' 2") 04/09/2019 11:58 AM [employer] Body Mass Index - - documented in this encounter Progress Notes Clint Kay MD - 04/09/2019 11:20 AM CST HISTORY OF PRESENT ILLNESS: Jarrod Joyner is a 64 year old male. Chief complaint: Right side weakness. History: The patient is 64 years old, and he had in the past fallen and hit his head, and since that time he has felt like he has been paralyzed on his right side. He had been to the emergency room back in December, and the report said that he had been having the symptoms for the last couple of months. CT scan of the brain had been done and was unremarkable. Patient really is not able to ambulate on his own at the present time, and he was actually requesting a power operated wheelchair. This inability to ambulate has gotten worse since he had this fall and hit his head. Of note, when he did hit hishead there was not any loss of consciousness. He has had problems with bowel and bladder continents and he was asking if I would document this so that his primary care physician could order some incontinence garments. This issue of continents had started before he had hit his head, however. Of note, he was not complaining of any particular neck pain. Review of Systems: Cardiac - patient complains of: easy fatigue. Patient denies: chest pain, short of breath, murmur, hypertension, arrhythmia, swelling of legs. Respiratory - patient complains of: cough. Patient denies: sputum production, wheezing, night sweats, insomnia. Gastric - patient denies: nausea, vomiting, poor appetite, blood in stool, difficult swallow, diarrhea. Urinary - patient complains of: incontinence. Patient denies: pain with urination, blood with urination, difficulty urinating. Skin - patient denies: discoloration, itching, ulcers, change in hair or nails, skin breakdown. Heme/Immunology - patient denies: easy bruising, abnormal lymph nodes, anemia, Lupus, malignancy, immune system disease. HEENT - patient denies: ringing of ears, loss of hearing, nose bleeds, sinus pain, hoarseness, soresin mouth, facial pain. Neurology - patient complains of: unstable walking. Patient denies: dizziness, tremor, change in speech, seizures, fainting spells, loss of memory. Endocrine - patient denies: hot cold intolerance, excessive urination, increased thirst, increase sweating, goiter, abnormal blood sugar, weight change , adrenal diseases. Psych - patient complains of: depression, anxiety. Patient denies: disorientation, mood disorder, psychosis, delusions, dec contact with reality. Eyes - patient denies: change in vision, eye pain, double vision, blurred vision , eyelid droop. Musculoskeletal - patient denies: pain in joints, muscle pain, back pain, neck pain, swelling of joints, swelling of the hands. Incontinence is for bowel/bladder. Preceded him hitting his head. See HPI for weakness. Past Medical History: hyperlipidemia, depression, anxiety. Family History: Aunts /uncles with cancer of some type. Surgeries: Ulcer and hernia surgery. Social history: Patient is , and does smoke cigarettes, even though he knows they are bad for his health. No use of alcohol or street drugs. Current Outpatient Medications: acetaminophen (TYLENOL) 325 mg tablet, Take by mouth every 6 (six) hours as needed., Disp: , Rfl: atorvastatin 40 mg tablet, Take 40 mg by mouth at bedtime., Disp: , Rfl: gentamicin 0.3 % ophthalmic drops, 1 Drop every 4 (four) hours., Disp: , Rfl: naproxen sodium (ALEVE) 220 mg tablet, Take 220 mg by mouth 2 (two) times daily with meals., Disp: , Rfl: vitamin B complex (B COMPLEX 1 ORAL), Take by mouth., Disp: , Rfl: gabapentin 100 mg capsule, TAKE 1 CAPSULE BY MOUTH EVERY EVENING, Disp: , Rfl: mirtazapine 7.5 mg tablet, Take 7.5 mg by mouth at bedtime., Disp: , Rfl: SERTraline 100 mg tablet, Take 100 mg by mouth daily., Disp: , Rfl: History reviewed. No pertinent family history. History reviewed. No pertinent surgical history. Social History Socioeconomic History Marital status: Single Spouse name: Not on file Number of children: Not on file Years of education: Not on file Highest education level: Not on file Occupational History Not on file Social Needs Financial resource strain: Not on file Food insecurity: Worry: Not on file Inability: Not on file Transportation needs: Medical: Not on file Non-medical: Not on file Tobacco Use Smoking status: Current Every Day Smoker Years: 40.00 Types: Cigarettes Substance and Sexual Activity Alcohol use: Not on file Drug use: Not on file Sexual activity: Not on file Lifestyle Physical activity: Days per week: Not on file Minutes per session: Not on file Stress: Not on file Relationships Social connections: Talks on phone: Not on file Gets together: Not on file Attends caodaism service: Not on file Active member of club or organization: Not on file Attends meetings of clubs or organizations: Not on file Relationship status: Not on file Intimate partner violence: Fear of current or ex partner: Not on file Emotionally abused: Not on file Physically abused: Not on file Forced sexual activity: Not on file Other Topics Concern Not on file Social History Narrative Not on file Vital signs: BP (!) 147/76 (BP Location: Right arm, Patient Position: Sitting, BP CUFF SIZE: Adult Large) | Pulse 98 | Temp 36.4 C (97.5 F) (Oral) | Resp 20 | Ht 5' 2" (1.575 m) | SpO2 98% | BMI 24.14 kg/m Examination: Mental Status: well-kept and appears stated age, alert and oriented times three, cooperative during the exam, attention and concentration normal, drug and alcohol counselor and expression intact, fund of information normal, recent and remote memory intact, affect/mood normal and relaxed. Cranial nerves (vision, eye movement): EOM intact, equal reactive pupils, accommodation reflex present, full visual persaud. Cranial nerves (V,VII): LT/sharp face sense intact, Frontalis intact, NL buccinators, obiculi occuli/oralis NL. Cranial nerves (taste, smell): taste intact by history, smell intact by history. Cranial nerve (VIII): normal conversational hearing, cisneros's midline, MARTIN intact finger rub. Cranial nerve (X,XII): tongue bulk normal, tongue midline, palate centered. Cranial nerve (accessory): normal r/l sternomastoid bulk/tone/power , shoulder shrug r/l equal. Peripheral motor. Increased tone in all 4 extremities, actual RUE spasticity, Right sided paresis > left and arm > leg. Reflexes: right side brisk reflexes, left side reflexes brisk. Clonus with ankle jerks. Bilateral upgoing toes. Peripheral sensation. Proprioception normal, change left vibration below left knee. Coordination. No tremors observed. Can't do right FTN, slow HTS right > left. Gait. In manual wheelchair, can stand and take a few steps, drags right leg. HEENT: HEENT A/N, no oropharyngeal lesion present, JVD absent, thyromegaly absent, no lymphadenopathy present. Lungs: lungs clear, no wheezing, no rhonchi. Heart: CV RRR, no murmurs, carotid bruits absent. Peripheral vascular: no peripheral cyanosis, clubbing absent, no peripheral edema present, intact peripheral pulses, extremities warm to touch, absent MARTIN foot ulcers. Musculoskeletal. No ROM done with neck. ASSESSMENT AND RECOMMENDATIONS: ICD-10-CM ICD-9-CM 1. Intervertebral cervical disc disorder with myelopathy, cervical region M50.00 722.71 Impression: Believe that the working diagnosis initially had been stroke, but CT scan of the brain did not suggest a lesion which would produce the symptoms, and also the scan had been done several weeks after the onset of symptoms. Because he has actually neurologic findings bilaterally, most likely diagnosis would be a cervical problem, possibly a myelopathy. Suspect that the continents problems are also related. We will try to get an MRI of the cervical spine, at this point do not know if any neurosurgery would be indicated, but this would be a consideration based on the results. The office visit lasted 60 minutes, and greater than 32 minutes was spent in reviewing the digital CT scan images and also discussing with him reasons why I thought the problem might be in his neck and that I had noticed signs on both sides of his body. Creation of the note was aided by utilizing a cut/paste operation of text from a Microsoft Word template created with [employer]. The text was dictated into the template via [employer]. Eneida Bravo RN - 04/09/2019 11:20 AM Vioeltte Joyner is a 64 year old male comes to clinic with assistive device; wheelchair for fall and weeakness. Pt comes accompanied by family . Pt in NAD w/ pain reported 0/10. Pt preferred language is Cymro. Pt. denies fall in last 12 months. Allergies and medications reviewed and updated. documented in this encounter Plan of Treatment Date Type Specialty Care Team Description 04/22/2019 Office Visit Neurology Clint Kay MD [address] [place] [address]. [place] [phone] Health Maintenance Due Date Last Done Comments HEPATITIS C (HCV) SCREEN 1955 DTaP,Tdap,and Td Vaccines (1 - Tdap) 1965 COLONOSCOPY 2004 Zoster Recombinant Vaccine (SHINGRIX) (1 of 2) 2004 LUNG CANCER SCREEN: Recommended for age 55-80 with 30 + 2009 pack year history INFLUENZA VACCINE (#1) 2018 Medicare Wellness Visit 2019 PNEUMOCOCCAL VACCINES 65+ (1 of 2 - PCV13) 2019 documented as of this encounter Results MR CERVICAL SPINE WO CONTRAST (04/10/2019 1:16 PM [employer]) Specimen Narrative Performed At HISTORY: Neck pain. History of fall 3 months ago. PACS/VR/DOSE TECHNIQUE: T1/T2/STIR sagittal and T1/T2 FRFSE/2D MERGE axial studies of cervical spines were obtained. FINDINGS: No compression fracture or abnormal marrow changes of the bones detected. Mild mid cervical lordosis noted. Spinal canal is of adequate size and no intrinsic cervical cord pathology detected. The anatomy of the craniocervical junction appears normal. Incidental note of mild chronic sphenoid and bilateral maxillary sinusitis C2-C3: Left facet arthritis without foraminal encroachment. C3-C4: Grade 1 anterior listhesis of C3 over C4, prominent bulging of the disc with additional encroachment by thickened dorsal ligaments causing spinal stenosis with diffuse cord compression. Abnormal signal is detected in the spinal cord at the level of the disc and upper two thirds of C4 vertebral body, likely secondary to myelomalacia. Bilateral hypertrophic facet arthritis, left side more with fluid in the left facet joint. Bilateral foraminal encroachment noted with mild nerve root compression, left more than right. C4-C5: Minimal anterior listhesis of C4 over C5, minimal disc bulge into the spinal canal without cord compression. Mild right facet arthritis. No significant nerve root compression. C5-C6: Degenerative disc disease with slightly narrowed disc space, prominent disc osteophyte complex along the ventral as well as dorsal vertebral margins encroaching into the spinal canal, slightly more into the left side with minimal flattening of the left side of the spinal cord without cord compression. Foraminal narrowing on the left side noted causing left nerve root compression. C6-C7: Moderate degenerative disc disease with narrowing of the disc space by up to 70%, prominent disc osteophyte complex along the ventral as well as dorsal vertebral margins encroaching throughout the spinal canal causing mild spinal stenosis with mild flattening of the spinal cord in AP dimension without significant cord compression. No significant facet arthritis. Foraminal encroachment noted on both sides, more on the left side causing left neural root compression. C7-T1: Diffuse bulging of the disc and mild bilateral facet arthritis without cord compression or significant foraminal encroachment or nerve root compression. CONCLUSIONS: 1. Spinal stenosis with cord compression at C3-C4. Abnormal signal within the spinal cord could be myelomalacia. 2. Degenerative disc disease at C5-C6, C6-C7, grade 1 spondylolisthesis with bulging disc at C3-C4, minimal spondylosis spaces at C4-C5 with bulging disc and multilevel facet arthritis discussed above with foraminal encroachment causing left-sided nerve root compression at C3-C4, C4-C5, C6-C7. Procedure Note [facility], Radiant Results Inft User - 04/10/2019 1:35 PM [employer] HISTORY: Neck pain. History of fall 3 months ago. TECHNIQUE: T1/T2/STIR sagittal and T1/T2 FRFSE/2D MERGE axial studies of cervical spines were obtained. FINDINGS: No compression fracture or abnormal marrow changes of the bones detected. Mild mid cervical lordosis noted. Spinal canal is of adequate size and no intrinsic cervical cord pathology detected. The anatomy of the craniocervical junction appears normal. Incidental note of mild chronic sphenoid and bilateral maxillary sinusitis C2-C3: Left facet arthritis without foraminal encroachment. C3-C4: Grade 1 anterior listhesis of C3 over C4, prominent bulging of the disc with additional encroachment by thickened dorsal ligaments causing spinal stenosis with diffuse cord compression. Abnormal signal is detected in the spinal cord at the level of the disc and upper two thirds of C4 vertebral body, likely secondary to myelomalacia. Bilateral hypertrophic facet arthritis, left side more with fluid in the left facet joint. Bilateral foraminal encroachment noted with mild nerve root compression, left more than right. C4-C5: Minimal anterior listhesis of C4 over C5, minimal disc bulge into the spinal canal without cord compression. Mild right facet arthritis. No significant nerve root compression. C5-C6: Degenerative disc disease with slightly narrowed disc space, prominent disc osteophyte complex along the ventral as well as dorsal vertebral margins encroaching into the spinal canal, slightly more into the left side with minimal flattening of the left side of the spinal cord without cord compression. Foraminal narrowing on the left side noted causing left nerve root compression. C6-C7: Moderate degenerative disc disease with narrowing of the disc space by up to 70%, prominent disc osteophyte complex along the ventral as well as dorsal vertebral margins encroaching throughout the spinal canal causing mild spinal stenosis with mild flattening of the spinal cord in AP dimension without significant cord compression. No significant facet arthritis. Foraminal encroachment noted on both sides, more on the left side causing left neural root compression. C7-T1: Diffuse bulging of the disc and mild bilateral facet arthritis without cord compression or significant foraminal encroachment or nerve root compression. CONCLUSIONS: 1. Spinal stenosis with cord compression at C3-C4. Abnormal signal within the spinal cord could be myelomalacia. 2. Degenerative disc disease at C5-C6, C6-C7, grade 1 spondylolisthesis with bulging disc at C3-C4, minimal spondylosis spaces at C4-C5 with bulging disc and multilevel facet arthritis discussed above with foraminal encroachment causing left-sided nerve root compression at C3-C4, C4-C5, C6-C7. Performing Organization Address City/State/Zipcode Phone Number PACS/VR/DOSE documented in this encounter Visit Diagnoses Diagnosis Intervertebral cervical disc disorder with myelopathy, cervical region - Primary documented in this encounter Insurance Payer Benefit Plan / Subscriber ID Effective Dates Phone Address Type Group MEDICARE MEDICARE PART xxxxxxxxxx 2019-Pres [id number] [place] [address] [facility] MEDICAID OF xxxxxxxxx 2019-Presen [phone] [address] Medicaid [place] t [id number] [place] [address] documented as of this encounter
--- OUTSIDE RECORDS SUMMARY | 2019-05-16 18:24 | XMS REPORT ---
:1955 Author [facility] Address [address] [place] [address] Dr. Coughlin [address] [place] [id number] Care Team Providers Name Role Phone Unavailable Unavailable Unavailable Problems This patient has no known problems. Allergies, Adverse Reactions, Alerts This patient has no known allergies or adverse reactions. Medications This patient has no known medications.
--- OUTSIDE RECORDS SUMMARY | 2019-05-16 18:24 | XMS REPORT | Summary of Care ---
:1955 Author Organization [facility] Address [address] [place] [address] Care Team Providers Name Role Phone Cat Barry Primary Care Provider Reason for Visit Reason Comments New Evaluation (Routine) Status Reason Specialty Diagnoses / Referred By Referred To Procedures Contact Contact Closed Neurological Surgery Diagnoses Intervertebral cervical disc disorder with myelopathy, cervical region Clint Kay Procedures CONSULT/REFERRAL NEUROSURGERY MD Son [address] [place] [address]. [place] [address] Encounter Details Date Type Department Care Team Description 05/01/2019 Office Visit [facility] Sanjay Nava MD Cervical spondylosis Neurosurgery, [address] with myelopathy [place], [place] (Primary Dx) [address] [place], [place] [id number] [address] [place] [address] Allergies No Known Allergiesdocumented as of this encounter (statuses as of 05/01/2019) Medications Medication Sig Dispensed Refills Start Date [...] tablet every 6 (six) hours as needed. traMADol 50 mg Take 1 tablet by 40 tablet 0 05/01/2019 Active tabletIndications: mouth every 6 Cervical spondylosis (six) hours as with myelopathy needed for Pain (scale 7-10). documented as of this encounter (statuses as of 05/01/2019) Active Problems No known active problemsdocumented as of this encounter (statuses as of 2019) Social History Tobacco Use Types Packs/Day Years Used Date Current Every Day Smoker Cigarettes 39 Sex Assigned at Date Recorded Not on file Job Start Date Occupation Industry Not on file Not on file Not on file Travel History Travel Start Travel End No recent travel history available. documented as of this encounter Last Filed Vital Signs Vital Sign Reading Time Taken Comments Blood Pressure 131/83 05/01/2019 9:34 AM BEHAVIORAL HEALTH CASE MANAGER Pulse 64 05/01/2019 9:34 AM BEHAVIORAL HEALTH CASE MANAGER Temperature - - Respiratory Rate - - Oxygen Saturation - - Inhaled Oxygen Concentration - - Weight 59 kg (130 lb) 05/01/2019 9:34 AM BEHAVIORAL HEALTH CASE MANAGER Height 165.1 cm (5' 5") 05/01/2019 9:34 AM BEHAVIORAL HEALTH CASE MANAGER Body Mass Index 21.63 05/01/2019 9:34 AM BEHAVIORAL HEALTH CASE MANAGER documented in this encounter Progress Notes Kelby Monroy III, MD - 05/01/2019 10:00 AM CST Neurosurgery Clinic 05/01/2019 Visit Type: New visit Chief Complaint: cervical myelopathy HPI Jarrod Joyner is a 64 year old male who presents complaining of a 2-3 month history of upper extremity weakness, and difficulties with walking following a fall. He reports numbness and paraesthesias inthe bilateral upper extremities. He denies any major cardiac or pulmonary conditions. Denies currently taking any anticoagulants or antiplatelets such as aspirin, plavix, or coumadin Histories No past medical history on file. No past surgical history on file. No family history on file. Social History Socioeconomic History Marital status: Single [...] file Gets together: Not on file Attends sikh service: Not on file Active member of [...] file Social History Narrative Not on file Review of Systems A 10 system ROS was negative apart from the positives noted in the HPI above Physical Exam A&Ox3 Face symmetric 4-/5 In proximal right upper extremity, 3/5 in right hand LUE 4+/5 proximally, 4/5 in hand intrinsics 4+/5 in BLE Intact sensation 3+ biceps, triceps, patella, achilles +de la garza's bilaterally; +right clonus Assessment This is a 64 year old male with 2-3 months of right upper extremity weakness and difficulties ambulating. MRI of the cervical spine shows severe C3-5 compression of cord signal changes and loss of cervical lordosis for C3-6 Plan Will plan for a C3-6 ACDF Kelby Monroy MD Neurosurgery resident Faculty Addendum: I personally evaluated and examined the patient and agree with the note by Dr. Monroy with no changes. 64 y/o M with severe progressive myelopathy, now unable to walk, and with signifcant right upper extremity weakness. Severe stenosis and degen throughout cervical spine with severe stenosis, cord compression and cord signal change from C3-5 as well as moderate stenosis at C5- 6. Plan for C3-6 ACDF, feel that surgery is semiurgent given his progressive symptoms and severe myelopathy. Sanjay Nava MD [facility] Neurosurgery documented in this encounter Plan of Treatment Date Type Specialty Care Team Description 05/13/2019 Hospital Encounter Surgery Sanjay Nava MD [address] [facility] [place] [address] 05/13/2019 Surgery Surgery Sanjay Nava MD ANTERIOR CERVICAL [address] [facility] [place] [address] Health Maintenance Due Date Last Done Comments [...] 2019 documented as of this encounter Results Not on filedocumented in this encounter Visit Diagnoses Diagnosis Cervical spondylosis with myelopathy - Primary documented in this encounter Insurance Payer Benefit Plan / Subscriber ID Effective Dates Phone Address Type Group MEDICARE MEDICARE PART xxxxxxxxxxx 2019-Presen [phone] Medicare A & B t 2 [id number] [place] KUMAR [address] [facility] MEDICAID OF xxxxxxxxx 2019-Presen [phone] [address] Medicaid [place] t 0 [id number] [place] [address] documented as of this encounter
--- OUTSIDE RECORDS SUMMARY | 2019-05-16 18:24 | XMS REPORT | Summary of Care ---
:1955 Author Organization [facility] Address [address] [place] [address] Care Team Providers Name Role Phone Pcp, Patient Does Not Have A Primary Care Provider Reason for Referral (Routine) Status Reason Specialty Diagnoses / Referred By Referred To Procedures Contact Contact New Request Neurological Diagnoses Intervertebral cervical disc disorder with myelopathy, cervical region Clint Kay Surgery Procedures CONSULT/REFERRAL NEUROSURGERY MD Son [address] [place] [phone] MRI/CAT Scan (Routine) Status Reason Specialty Diagnoses / Referred By Referred To Procedures Contact Contact Closed Diagnostic Diagnoses Intervertebral cervical disc disorder with myelopathy, cervical region Clint Kay Radiology Procedures MR CERVICAL SPINE WO CONTRAST MD Son [address] [place] [phone] Reason for Visit Reason Comments New Patient weakness and fall Encounter Details Date Type Department Care Team Description 04/09/2019 Office Visit [facility] Clint Kay Intervertebral cervical Neurology-Shalom Cline MD disc disorder with [address] myelopathy, cervical Drive, [address] [facility]. region (Primary Dx) [place] [phone] Allergies No Known Allergiesdocumented as of [...] Comments Blood Pressure 147/76 04/09/2019 11:58 AM YOUTH MINISTER Pulse 98 04/09/2019 11:58 AM YOUTH MINISTER Temperature 36.4 C (97.5 F) 04/09/2019 11:58 AM YOUTH MINISTER Respiratory Rate 20 04/09/2019 11:58 AM YOUTH MINISTER Oxygen Saturation 98% 04/09/2019 11:58 AM YOUTH MINISTER Inhaled Oxygen Concentration - - Weight - - Height 157.5 cm (5' 2") 04/09/2019 11:58 AM YOUTH MINISTER Body Mass Index - - documented in [...] file Gets together: Not on file Attends buddhism service: Not on file Active member of [...] during the exam, attention and concentration normal, 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 The text was dictated into the template via [employer]. Like a Man.on Naturally Speaking. Eneida Bravo RN - 04/09/2019 11:20 AM Violette Joyner is a 64 year old male comes to clinic with assistive device; wheelchair for fall and weeakness. Pt comes accompanied by family . Pt in NAD w/ pain reported 0/10. Pt preferred language is Paraguayan. Pt. denies fall in last 12 months. Allergies and medications reviewed and updated. documented in this encounter Plan of Treatment Date Type Specialty Care Team Description 04/22/2019 Office Visit Neurology Clint Kay MD [address] [place] [address]. [place] [address] Health Maintenance Due Date Last [...] CERVICAL SPINE WO CONTRAST (04/10/2019 1:16 PM YOUTH MINISTER) Specimen Narrative Performed At HISTORY: Neck pain. [...] Results Inft User - 04/10/2019 1:35 PM YOUTH MINISTER HISTORY: Neck pain. History of fall 3 [...] BOX Medicare A & B ent 2 [id number] [place] [address] [facility] MEDICAID OF xxxxxxxxx 2019-Presen [phone] [address] Medicaid [place] t 0 [id number] [place] [address] documented as of this encounter
--- OUTSIDE RECORDS SUMMARY | 2019-05-16 18:24 | XMS REPORT | Summary of Care ---
:1955 Author Organization [facility] - Health Address [address] [place] [address] Care Team Providers Name Role Phone Pcp, Patient Does Not Have A Primary Care Provider Encounter Details Date Type Department Care Team Description 04/10/2019 Orders Only [facility] Doctor Unassigned, No [address] [facility] [place] [address] [address] [place] [address] Allergies No Known Allergiesdocumented as of this encounter (statuses as of 04/10/2019) Medications Medication Sig Dispensed Refills Start Date [...] as of this encounter (statuses as of 04/10/2019) Active Problems No known active problemsdocumented as [...] of this encounter Last Filed Vital Signs Not on filedocumented in this encounter Plan of Treatment Date Type Specialty Care Team Description 04/10/2019 Appointment Radiology Clint Kay MD [address] [place] [phone] 04/22/2019 Office Visit Neurology Clint Kay MD [address] [place] [address] Health Maintenance Due Date Last Done [...] PCV13) 2019 documented as of this encounter Procedures Procedure Name Priority Date/Time Associated Diagnosis Comments ASSIGNMENT OF BENEFITS Routine 04/10/2019 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 Medicare A & B esent [id number] CAROLYN KUMAR [id number] [facility] [id number] 2019-Pre Medicare Adv [place] PL[place] sent HMO CLASSIC/VALUE [facility] MEDICAID OF xxxxxxxxx 2019-Pres [phone] [address] Medicaid [place] ent [id number] [place] [address] documented as of this encounter
--- OUTSIDE RECORDS SUMMARY | 2019-05-16 18:25 | XMS REPORT | Summary of Care ---
:1955 Author Organization [facility] - Health Address [address] [place] [address] Care Team Providers Name Role Phone Cat Barry Primary Care Provider Encounter Details Date Type Department Care Team Description 05/13/2019 Orders Only [facility] Doctor Unassigned, No [address] [facility] [place] [address] [address] [place] [address] Allergies No Known Allergiesdocumented as of this encounter (statuses as of 05/13/2019) Medications Medication Sig Dispensed Refills Start Date End Date Status gabapentin 100 mg daily. 0 03/29/2019 Active capsule mirtazapine 7.5 mg Take 7.5 mg by 0 03/29/2019 Active tablet mouth at bedtime. SERTraline 100 mg tablet Take 100 mg by 0 03/29/2019 Active mouth daily. gentamicin 0.3 % Place 2 Drops in 0 Active ophthalmic drops both eyes every 4 (four) hours. atorvastatin 40 mg Take 40 [...] with myelopathy needed for Pain (scale 7-10). vitamin B-12 (VITAMIN Take 50 mcg by 0 Active B-12) 100 mcg tablet mouth daily. documented as of this encounter (statuses as of 05/13/2019) Active Problems No known active problemsdocumented as of this encounter (statuses as of 2019) Social History Tobacco Use Types Packs/Day Years Used Date Current Every Day Smoker Cigarettes 40 Smokeless Tobacco: Never Used Comments: 1 cigarette every other day Sex Assigned at Date Recorded Not on file Job Start Date Occupation Industry Not on file Not on file Not on file Travel History Travel Start Travel End No recent travel history available. 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 Medicare A & B t 2 [id number] CAROLYN KUMAR [address] [facility] MEDICAID OF xxxxxxxxx 2019-Presderek [phone] [address] Medicaid [place] t 0 [id number] [place] [address] documented as of this encounter
--- OUTSIDE RECORDS SUMMARY | 2019-05-16 18:25 | XMS REPORT | Summary of Care ---
:1955 Author Organization [facility] Address [address] [place] [address] Care Team Providers Name Role Phone Cat Barry Primary Care Provider Reason for Visit Reason Comments New Evaluation (Routine) Status Reason Specialty Diagnoses / Referred By Referred To Procedures Contact Contact Closed Neurological Surgery Diagnoses Intervertebral cervical disc disorder with myelopathy, cervical region Clint Kay Procedures CONSULT/REFERRAL NEUROSURGERY MD Son [address] [place] [address]. [place] [address] Encounter Details Date Type Department Care Team Description 05/01/2019 Office Visit [facility] Sanjay Nava MD Cervical spondylosis Neurosurgery, [address] with myelopathy [place], [place] (Primary Dx) [address] [place], [place] [id number] [address] [place] [address] Allergies No Known Allergiesdocumented as [...] Comments Blood Pressure 131/83 05/01/2019 9:34 AM HYDRAULIC PRESS SERVICER Pulse 64 05/01/2019 9:34 AM HYDRAULIC PRESS SERVICER Temperature - - Respiratory Rate - - Oxygen Saturation - - Inhaled Oxygen Concentration - - Weight 59 kg (130 lb) 05/01/2019 9:34 AM HYDRAULIC PRESS SERVICER Height 165.1 cm (5' 5") 05/01/2019 9:34 AM HYDRAULIC PRESS SERVICER Body Mass Index 21.63 05/01/2019 9:34 AM HYDRAULIC PRESS SERVICER documented in this encounter Progress Notes Kelby [...] file Gets together: Not on file Attends restorationism service: Not on file Active member of [...] symptoms and severe myelopathy. Sanjay Nava MD [facility] Neurosurgery documented in this encounter Plan of Treatment Date Type Specialty Care Team Description 05/13/2019 Hospital Encounter Surgery Sanjay Nava MD [address] [facility] [place] [address] 05/13/2019 Surgery Surgery Sanjay Nava MD ANTERIOR CERVICAL [address] [facility] [place] [address] Health Maintenance Due Date Last [...] BOX Medicare A & B t 2 [id number] CAROLYN KUMAR [address] [facility] MEDICAID OF xxxxxxxxx 2019-Presen [phone] [address] Medicaid [place] t 0 [id number] [place] [address] documented as of this encounter
--- OUTSIDE RECORDS SUMMARY | 2019-05-16 18:25 | XMS REPORT | Summary of Care ---
:1955 Author Organization [facility] Address [address] [place] [id number] Care Team Providers Name Role Phone Cat Barry Primary Care Provider Reason for Visit Auth/Cert Status Reason Specialty Diagnoses / Procedures Referred By Contact Referred To Contact Surgery Diagnoses Cervical spondylosis with myelopathy Clc Preop Procedures GA ARTHRODESIS ANT INTERBODY INC DISCECTOMY, CERVICAL BELOW C2 ANTERIOR CERVICAL FUSION [address] [place] [address] Encounter Details Date Type Department Care Team Description 05/13/2019 Anesthesia [facility] Surgical Max Dyer MD [address] [facility] [id number] [place] [address] Center [facility] Patricia Alvarez, RN [address] [place] [id number] [address] [place] [address] Allergies No Known Allergiesdocumented as of this encounter (statuses as of 05/14/2019) Medications Medication Sig Dispensed Refills Start Date End Date Status gabapentin 100 mg daily. 0 03/29/2019 Suspended capsule mirtazapine 7.5 mg Take 7.5 mg by 0 03/29/2019 Suspended tablet mouth at bedtime. SERTraline 100 mg Take 100 mg by 0 03/29/2019 Suspended tablet mouth daily. gentamicin 0.3 % Place 2 Drops 0 Suspended ophthalmic drops in both eyes every 4 (four) hours. atorvastatin 40 mg Take 40 mg by 0 Suspended tablet mouth at bedtime. vitamin B complex (B Take by mouth. 0 Suspended COMPLEX 1 ORAL) naproxen sodium Take 220 mg by 0 Suspended (ALEVE) 220 mg tablet mouth 2 (two) times daily with meals. acetaminophen Take by mouth 0 Suspended (TYLENOL) 325 mg every 6 (six) tablet hours as needed. traMADol 50 mg Take 1 tablet 40 tablet 0 05/01/2019 Suspended tabletIndications: by mouth every Cervical spondylosis 6 (six) hours with myelopathy as needed for Pain (scale 7-10). Additional information vitamin B-12 (VITAMIN B-12) 100 mcg Take 50 mcg by mouth daily. 0 Suspended tablet documented as of this encounter (statuses as of 05/14/2019) Active Problems Problem Noted Date Cervical myelopathy 05/13/2019 documented as of this encounter (statuses as of 05/14/2019) Social History Tobacco Use Types Packs/Day Years Used Date Current Every Day Smoker Cigarettes 40 Smokeless Tobacco: Never Used Comments: 1 cigarette every other day Alcohol Use Drinks/Week oz/Week Comments Never Alcohol Habits Answer Date Recorded How often do you have a drink containing alcohol? Never 05/13/2019 How many drinks containing alcohol do you have on a typical Not asked day when you are drinking? How often do you have six or more drinks on one occasion? Not asked Sex Assigned at Date Recorded Not on [...] PCV13) 2019 documented as of this encounter Implants Implanted Type Area Depositing Machine Operator Device Shelf Model / Identifier Expiration Serial / Lot Date Lordotic Sr Cortical Block [id number] Spinalgraft# [id number] - [id number] BONE N/A : Spinal Graft 12/24/2021 [id number] / Implanted: Qty: 1 on 05/13/2019 by Sanjay Nava MD at [facility] ([facility]) Neck Tech [id number] / [id number] Lordotic Sr Cortical Block [id number] Spinalgraft# [id number] - [id number] BONE N/A : Spinal Graft 12/24/2021 [id number] / Implanted: Qty: 1 on 05/13/2019 by Sanjay Nava MD at [facility] ([facility]) Neck Tech [id number] / [id number] Lordotic Sr Cortical Block [id number] Spinalgraft# [id number] - [id number] BONE N/A : Spinal Graft 12/24/2021 [id number] / Implanted: Qty: 1 on 05/13/2019 by Sanjay Nava MD at [facility] ([facility]) Neck Tech [id number] / [id number] 53mm Plate PLATE N/A: Medtronic 05/12/2020 [id number] / Implanted: Qty: 1 on 05/13/2019 by Sanjay Nava MD at [facility] ([facility]) Neck NA / NA Screw 3.5 X 15mm Medtronic #[id number] - Sna SCREW N/A: Medtronic 2020 [id number] / Implanted: Qty: 8 on 05/13/2019 by Sanjay Nava MD at [facility] ([facility]) Neck NA / NA documented as of this encounter Procedures Procedure Name Priority Date/Time Associated Diagnosis Comments INTUBATION Routine 05/13/2019 8:53 AM Results for this TUNNEL KILN OPERATOR procedure are in the results section. INTUBATION Routine 05/13/2019 8:32 AM Results for this TUNNEL KILN OPERATOR procedure are in the results section. documented in this encounter Results Intubation (05/13/2019 8:53 AM TUNNEL KILN OPERATOR) Narrative Performed At Danielle Das CRNA 05/13/2019 8:54 AM Intubation Date/Time: 05/13/2019 8:34 AM Urgency: elective Airway not difficult General Information and Staff Patient location during procedure: OR Resident/CATALYST SUPERVISOR: Danielle Das CRNA Performed: resident/CATALYST SUPERVISOR Indications and Patient Condition Indications for airway management: anesthesia and airway protection Spontaneous Ventilation: absent Sedation level: deep Preoxygenated: yes Patient position: sniffing MILS maintained throughout Mask difficulty assessment: 1 - vent by mask Final Airway Details Final airway type: endotracheal airway Successful airway: ETT Cuffed: yes Successful intubation technique: video laryngoscopy Facilitating devices/methods: intubating stylet Endotracheal tube insertion site: oral Blade: Cassie Blade size: #3 ETT size (mm): 7.5 Cormack-Lehane Classification: grade I - full view of glottis Placement verified by: chest auscultation and capnometry Measured from: lips ETT to lips (cm): 21 Number of attempts at approach: 1 Ventilation between attempts: none Number of other approaches attempted: 0 Intubation (05/13/2019 8:32 AM TUNNEL KILN OPERATOR) Narrative Performed At Adalid Elias MD 05/13/2019 8:34 AM Intubation Urgency: elective Airway not difficult General Information and Staff Patient location during procedure: OR Resident/CATALYST SUPERVISOR: Danielle Das CRNA Performed: resident/CATALYST SUPERVISOR Indications and Patient Condition Indications for airway management: anesthesia and airway protection Spontaneous Ventilation: absent Sedation level: deep Preoxygenated: yes Patient position: sniffing MILS maintained throughout Mask difficulty assessment: 1 - vent by mask Final Airway Details Final airway type: endotracheal airway Successful airway: ETT Cuffed: yes Successful intubation technique: video laryngoscopy (elective glidescope #3) Facilitating devices/methods: intubating stylet Endotracheal tube insertion site: oral ETT size (mm): 7.5 Cormack-Lehane Classification: grade I - full view of glottis Placement verified by: chest auscultation, capnometry and palpation of cuff Cuff volume (mL): 7 Measured from: lips ETT to lips (cm): 23 Number of attempts at approach: 1 Ventilation between attempts: none Number of other approaches attempted: 0 Additional Comments Dentition and lips unchanged from pre-op. elective glidescope #3/care taken to avoid neck movement. documented in this encounter Administered Medications Medication Order MAR Action Action Date Dose Rate Site acetaminophen ADULT (OFIRMEV) Given 05/13/2019 9:08 AM TUNNEL KILN OPERATOR 1,000 mg injection Administer over 15 Minutes, ONCE INTRA PROCEDURE, Starting Sun05/13/19 at 0908, Until Sun05/13/19 at 1108, Routine, Intra-op ceFAZolin (ANCEF) injection Given 05/13/2019 8:41 AM TUNNEL KILN OPERATOR 2 g ONCE INTRA PROCEDURE, Starting Sun05/13/19 at 0841, Until 05/13/19 at 1108, THERON, Intra-op dexamethasone (DECADRON PHOSPHATE) injection Given 05/13/2019 8:41 AM TUNNEL KILN OPERATOR 8 mg ONCE INTRA PROCEDURE, Starting 05/13/19 at 0841, Until 05/13/19 at 1108, Routine, Intra-op FENTanyl PF (SUBLIMAZE (PF)) injection Given 05/13/2019 8:26 AM TUNNEL KILN OPERATOR 100 mcg ONCE INTRA PROCEDURE, Starting 05/13/19 at 0826, Until 05/13/19 at 1108, Routine, Intra-op HYDROmorphOne (DILAUDID) injection Given 05/13/2019 10:35 AM TUNNEL KILN OPERATOR 0.6 mg ONCE INTRA PROCEDURE, Starting 05/13/19 at 1035, Until 05/13/19 at 1108, Routine, Intra-op ketorolac (TORADOL) injection Given 05/13/2019 10:37 AM TUNNEL KILN OPERATOR 15 mg ONCE INTRA PROCEDURE, Starting 05/13/19 at 1037, Until 05/13/19 at 1108, Routine, Intra-op lactated ringers IV infusion New Bag 05/13/2019 8:16 AM TUNNEL KILN OPERATOR IV Infusion, CONTINUOUS PRN, Starting 05/13/19 at 0826, Until 05/13/19 at 1108, Routine, Intra-op lidocaine 1% (XYLOCAINE) 100 mg/10 mL (1 %) Given 05/13/2019 8:26 AM TUNNEL KILN OPERATOR 5 mL injection ONCE INTRA PROCEDURE, Starting 05/13/19 at 0826, Until 05/13/19 at 1108, Routine, Intra-op ondansetron (ZOFRAN (PF)) injection Given 05/13/2019 10:40 AM TUNNEL KILN OPERATOR 4 mg ONCE INTRA PROCEDURE, Starting 05/13/19 at 1040, Until 05/13/19 at 1108, Routine, Intra-op PHENYLephrine 1000 mcg/10 mL in 0.9% NaCl Given 05/13/2019 10:48 AM TUNNEL KILN OPERATOR 100 mcg syringe ONCE INTRA PROCEDURE, Starting 05/13/19 at 0847, Until 05/13/19 at 1108, Routine, Intra-op Given 05/13/2019 10:45 AM TUNNEL KILN OPERATOR 100 mcg Given 05/13/2019 10:35 AM TUNNEL KILN OPERATOR 100 mcg propofol IV infusion Given 05/13/2019 10:34 AM TUNNEL KILN OPERATOR 50 mg ONCE INTRA PROCEDURE, Starting 05/13/19 at 0826, Until 05/13/19 at 1108, Routine, Intra-op Given 05/13/2019 10:30 AM TUNNEL KILN OPERATOR 50 mg Given 05/13/2019 9:00 AM TUNNEL KILN OPERATOR 50 mg rocuronium (ZEMURON) injection Given 05/13/2019 9:37 AM TUNNEL KILN OPERATOR 10 mg ONCE INTRA PROCEDURE, Starting 05/13/19 at 0827, Until 05/13/19 at 1108, Routine, Intra-op Given 05/13/2019 8:27 AM TUNNEL KILN OPERATOR 40 mg sugammadex (BRIDION) injection Given 05/13/2019 10:35 AM TUNNEL KILN OPERATOR 120 mg ONCE INTRA PROCEDURE, Starting 05/13/19 at 1035, Until 05/13/19 at 1108, Routine, Intra-op documented in this encounter Insurance Payer Benefit Plan / Subscriber ID Effective Dates Phone Address Type Group MEDICARE MEDICARE PART xxxxxxxxxxx 2019-Presen [phone] [id number] [place] [id number] [facility] MEDICAID OF xxxxxxxxx 2019-Presen [phone] [address] Medicaid [place] t [id number] [place] [address] documented as of this encounter
--- OUTSIDE RECORDS SUMMARY | 2019-05-16 18:26 | XMS REPORT | Summary of Care ---
:1955 Author Organization [facility] Address [address] [place] [id number] Care Team Providers Name Role Phone Cat Barry Primary Care Provider Reason for Referral (THERON) Status Reason Specialty Diagnoses / Referred By Contact Referred To Procedures Contact New Request Procedures Alfa Galeas, JOSE VENOUS DUPLEX UPPER BY [address] [facility] [place] [address] Radiology Services (Routine) Status Reason Specialty Diagnoses / Referred By Referred To Procedures Contact Contact New Request Diagnostic Diagnoses Cervical spondylosis with myelopathy Sanjay Nava MD Radiology Procedures XR CERVICAL SPINE [address] [address] Reason for Visit Auth/Cert Status Reason Specialty Diagnoses / Procedures Referred By Contact Referred To Contact Surgery Diagnoses Cervical spondylosis with myelopathy Clc Preop Procedures NM ARTHRODESIS ANT INTERBODY INC DISCECTOMY, CERVICAL BELOW C2 ANTERIOR CERVICAL FUSION [address] [place] [address] Encounter Details Date Type Department Care Team Description 05/13/2019 - [facility] Sanjay Nava MD [address] [place] [id number] Cervical myelopathy 05/16/2019 Encounter Medicine/Surgery Ladonna Shafer MD [address] [place] [address] [address]LC [address] [place] [address] Allergies No Known Allergiesdocumented as of this encounter (statuses as of 05/16/2019) Medications Medication Sig Dispensed Refills Start Date End Date Status gabapentin 100 mg daily. 0 03/29/2019 Active capsule mirtazapine 7.5 mg Take 7.5 mg 0 03/29/2019 Active tablet by mouth at bedtime. SERTraline 100 mg Take 100 mg 0 03/29/2019 Active tablet by mouth daily. gentamicin 0.3 % Place 2 Drops 0 Active ophthalmic drops in both eyes every 4 (four) hours. atorvastatin 40 mg Take 40 mg by 0 Active tablet mouth at bedtime. vitamin B complex (B Take by 0 Active COMPLEX 1 ORAL) mouth. naproxen sodium Take 220 mg 0 Active (ALEVE) 220 mg by mouth 2 tablet (two) times daily with meals. acetaminophen Take by 0 Active (TYLENOL) 325 mg mouth every 6 tablet (six) hours as needed. vitamin B-12 Take 50 mcg 0 Active (VITAMIN B-12) 100 by mouth mcg tablet daily. HYDROcodone-acetamin Take 1 tablet 0 05/15/2019 Active ophen 10-325 mg by mouth tablet every 4 (four) hours as needed for Pain (scale 7-10). methocarbamol 500 mg Take 1 tablet 0 05/15/2019 Active tablet by mouth 3 (three) times daily. traMADol 50 mg Take 1 tablet 40 tablet 0 05/01/2019 05/15/2019 Discontinued tabletIndications: by mouth Cervical spondylosis every 6 (six) with myelopathy hours as needed for Pain (scale 7-10). documented as of this encounter (statuses as of 05/16/2019) Active Problems Problem Noted Date Cervical myelopathy 05/13/2019 documented as of this encounter (statuses as of 05/16/2019) Social History Tobacco Use Types Packs/Day Years [...] Sign Reading Time Taken Comments Blood Pressure 128/68 05/16/2019 3:00 PM [facility] [employer] [employer] Pulse 53 05/16/2019 3:00 PM [employer] Temperature 36.8 C (98.3 F) 05/16/2019 3:00 PM [employer] Respiratory Rate 16 05/16/2019 3:00 PM [employer] Oxygen Saturation 93% 05/16/2019 3:00 PM [employer] Inhaled Oxygen Concentration - - Weight 57.7 kg (127 lb 3.3 oz) 05/13/2019 6:00 AM [facility] [employer] Height 165.1 cm (5' 5") 05/13/2019 6:00 AM [employer] Body Mass Index 21.17 05/13/2019 6:00 AM [employer] documented in this encounter Discharge Summaries Alfa Galeas MD - 05/16/2019 11:54 AM CST CLS Team Discharge Summary Date of Service: 05/16/2019 ADMIT DATE: 05/13/2019 DISCHARGE DATE: 05/16/2019 ATTENDING MD: Alfa Galeas MD PCP: Cat Barry REASON FOR ADMISSION Neck pain FINAL DIAGNOSIS: Severe C spine stenosis and cord compression s/p C3-6 AECD- Keep Neck Collar for 2 weeks Cervical myelopathy Active Problems: Cervical myelopathy (05/13/2019) POA: Yes Resolved Problems: * No resolved hospital problems. * Orders Placed This Encounter CONSULT ADULT OCCUPATIONAL THERAPY CONSULT ADULT PHYSICAL THERAPY CONSULT SPEECH CONSULT PAIN SERVICES No orders of the defined types were placed in this encounter. Temp: [36.5 C (97.7 F)-37.1 C (98.7 F)] Pulse: [57-68] Resp: [16-18] BP: (99-151)/(50-73) Physical Exam SIGNIFICANT LAB/X-RAYS: Recent Results (from the past 48 hour(s)) BASIC METABOLIC PANEL (NA, K, CL, CO2, GLUCOSE, BUN, CREATININE, CA) Collection Time: 05/14/19 11:45 AM Result Value Ref Range NA 138 135 - 145 mmol/L K 3.5 3.5 - 5.0 mmol/L CL 106 98 - 108 mmol/L CO2 TOTAL 23 23 - 31 mmol/L AGAP 9 2 - 16 BUN 21 7 - 23 mg/dL GLUCOSE 150 (H) 70 - 110 mg/dL CREATININE 0.77 0.60 - 1.25 mg/dL CALCIUM 8.0 (L) 8.6 - 10.6 mg/dL eGFR Calculation (Non-) 101.4 mL/min/1.73m2 eGFR Calculation () 122.9 mL/min/1.73m2 CBC WITH DIFFERENTIAL Collection Time: 05/14/19 11:45 AM Result Value Ref Range WBC 9.36 4.20 - 10.70 10*3/L RBC 3.30 (L) 4.26 - 5.52 10*6/L HGB 10.2 (L) 12.2 - 16.4 g/dL HCT 31.5 (L) 38.4 - 49.3 % MCV 95.5 81.7 - 95.6 fL MCH 30.9 26.1 - 32.7 pg MCHC 32.4 31.2 - 35.0 g/dL RDW-SD 46.8 38.5 - 51.6 fL RDW-CV 13.3 12.1 - 15.4 % PLT 212 150 - 328 10*3/L MPV 9.5 (L) 9.8 - 13.0 fL NRBC/100 WBC 0.0 0.0 - 10.0 /100 WBCs NRBC x10^3 <0.01 10*3/L GRAN MAT (NEUT) % 74.9 % IMM GRAN % 0.50 % LYMPH % 14.4 % MONO % 8.5 % EOS % 1.1 % BASO % 0.6 % GRAN MAT x10^3(ANC) 7.00 (H) 1.99 - 6.95 10*3/uL IMM GRAN x10^3 0.05 0.00 - 0.06 10*3/uL LYMPH x10^3 1.35 1.09 - 3.23 10*3/uL MONO x10^3 0.80 0.36 - 1.02 10*3/uL EOS x10^3 0.10 0.06 - 0.53 10*3/uL BASO x10^3 0.06 0.01 - 0.09 10*3/uL No final results containing an impression from the past 48 hours were found. I saw and examined the patient today. No CP or SOB. No nausea. VSS General: alert and oriented x 3 ; no apparent distress HEENT: normocephalic atraumatic, pupils equal, round, reactive to light Neck: supple, no lymphadenopathy, no bruits, no JVD Lungs: clear to auscultation bilaterally, no crackles, no wheezes, cough is strong and effective Cardio: regular rate and rhythm, no murmurs, no gallops Abdomen: soft; non-tender; non-distended; normoactive bowel sounds Extremities: no clubbing, cyanosis, or edema, right upper extremity hand contracture, hand is weak with plantar flextion and muscle wasting. Skin: no rashes Neuro: cranial nerves grossly intact; sensation grossly intact;Weak lower extremities 4/5 martin. HOSPITAL COURSE: Severe C spine stenosis and cord compression s/p C3-6 AECD- Keep Neck Collar for 2 weeks Cervical myelopathy Plan: -Keep Neck Collar for 2 weeks -Patient Likely to be d/c to rehab, following -Post op care -Tele -C/W Speech, OT/OT eval -MBS does not appear to be necessary at this time as per ST -Obtain labs including CBC, BMP, INR. -Tele -Monitor for bleeding -Pain management -SCDs for DVT ppx - R hand swelling, no signs of infection, venous duplex to r/o DVT. ITEMS FOR FOLLOW UP PROVIDER: (including pending labs/cultures/studies, anticipated problems, etc.) FUNCTIONAL STATUS: fully ambulatory DISCHARGE CONDITION: good COGNITIVE STATUS: cognitively intact DISCHARGE INSTRUCTIONS: Discharge Orders Regular Diet; Texture: Regular. Texture Regular. Diabetic: No Discharge Condition - Discharge Condition: GOOD Discharge Activity Order Comments: As tolerated. And Per PT Discharge Activity: Ambulate VTE Propylaxis- Was ordered during hospitalization Discharge Instructions Order Comments: Keep Neck collar for 2 weeks. Follow up with Neurosurgery in 4 weeks DISCHARGE MEDICATIONS: Current Discharge Medication List START taking these medications Details HYDROcodone-acetaminophen (NORCO) 1 tablet Take 1 tablet by mouth every 4 (four ) hours as needed forPain (scale 7-10). Refills: 0 Start date: 05/15/2019 methocarbamol (ROBAXIN) 500 mg Take 500 mg by mouth 3 (three) times daily. Start date: 05/15/2019 CONTINUE these medications which have NOT CHANGED Details vitamin B-12 (CYANOCOBALAMIN) 50 mcg Take 50 mcg by mouth daily. atorvastatin (LIPITOR) 40 mg Take 40 mg by mouth at bedtime. gabapentin 100 mg capsule daily. gentamicin (GENOPTIC) [address] 2 Drops in both eyes every 4 (four) hours. mirtazapine (REMERON) 7.5 mg Take 7.5 mg by mouth at bedtime. SERTraline (ZOLOFT) 100 mg Take 100 mg by mouth daily. acetaminophen (TYLENOL) 325 mg tablet Take by mouth every 6 (six) hours as needed. naproxen sodium (ANAPROX) 220 mg Take 220 mg by mouth 2 (two) times daily with meals. vitamin B complex (B COMPLEX 1 ORAL) Take by mouth. STOP taking these medications traMADol (ULTRAM) 50 mg Comments: Reason for Stopping: WOUND CARE: CODE STATUS: full code OXYGEN (is patient being discharged on oxygen): no PATIENT EDUCATION PROVIDED: DISCHARGE: rehab facility FOLLOW-UP APPOINTMENT: PLAN FOR READMISSION: No Please call or text [phone] to contact Alfa Galeas MD with any questions. - documented in this encounter Discharge Instructions AttachmentsThe following attachments cannot be sent through Care Everywhere.Acetaminophen; Hydrocodone tablets or capsules (Malagasy) Methocarbamol tablets (Malagasy)Collar, Cervical (Malagasy)Spinal Fusion: Cervical (Malagasy)Stroke, Risk Factors for (Malagasy)Stroke, Symptoms (Malagasy) documented in this encounter Progress Notes Elizabeth Jon V, ASHLEIGH - 05/16/2019 9:22 AM [employer] Care Management Discharge Disposition Note (DCDN) 5-2-1 Interventions: Disease specific education;Clear discharge plan 5-2-1 Providers: Physician;Product Ambassador/Asset Protection Manager;Nurse 5-2-1 Patient Capacity Improvements: Avoidance of adverse events/readmission; Transportation arrangements Discharge Plan for ongoing care and services: Rehabilitation Is this a new referral: Yes Patient Choice completed for referred services: Yes Discharge location(s): Rehabilitation location: [facility], [address], [place], [place] () [phone] (F) [phone] Patient choice completed for referred services: Yes Discussed with patient/patients family involved in decision making: Yes Patient or family caregiver understands, and agrees with discharge plan. Community resources/referrals made or provided to patient: No Transportation: Wheelchair Van; [facility] Voucher # [id number] Mental Status: Alert & Oriented to Person, Place Living Arrangement: Home Address of living arrangement: [facility] [address] Funding Resources: Medicare A & B Nursing informed of discharge plan: Yes Name of RN informed: Cheri Estimated discharge date: 05/16/19 Time: 1500 CM/SW Name & Contact number: Elizabeth Jon LMSW Asset Protection Manager - [facility] Department of Care Management E: [email or web address] The following information has been provided to the facility noted above: reason for the patient discharge or transfer; patients physical and psychosocial status; summary of care, treatment, servicesprovided to patient; and the patient progress toward goals. Elizabeth Song LMSW - 05/16/2019 9:18 AM CSTSocial Work Note: 05/16/2019 9:19 AM ASHLEIGH confirmed patients acceptance to [facility] with Nathaniel ([phone] ). Nurse Cheri, Patient and sibling notified. MOT: [id number], [place] [address] - Call Report Dr. Srinivasan Carey Admin: Coty Jon LMSW Asset Protection Manager - [facility] Department of Care Management E: [email or web address] Jena Olson OTA - 05/15/2019 5:42 PM CSTOCCUPATIONAL THERAPY NOTE: Discharge Recommendations: Primary Discharge Plan: Rehabilitation hospital Equipment Recommendations: Defer to facility Precautions: Weight bearing status: NA General: Fall Bracing: Cervical collar: Woodland-j collar S: Patient agreeable to participate in occupational therapy. PAIN Pre-treatment: 6/10 pain at neck. Post-treatment: 6/10 pain at neck. Nursing Notified. O: Patient found semireclining in bed. Visitor present and Vital signs stable . Patient seen this date for the following: ADL Training Grooming: CGA. Patient transferred from semireclining in bed to sitting EOB with Minimal assist> standing with use of RW CGA> ambulated to bathroom with CGA use of RW, Patient completed grooming task at sink CGA c/o of BLE weakness and increased pain > ambulated back to bed CGA Therapeutic Exercise/Procedure Educated Patient about ADL training, AROM, Energy conservation, Fall prevention, Positioning, Relaxation/breathing techniques, Role of OT and Safety awareness for MARTIN UE: Patient/caregiver instructed to perform HEP 3 times per day, 10 repetitions. Patient/caregiver returns demonstration BUE AROM 4 x 10 repetitions as follows: Tactile and verbal cues provided for correct technique.. Educated about the importance of complying with all exercises to help increase overall strength, endurance, flexibility, and ROM for self-care independence. Patient/caregiver verbalized understanding to all discussed. Patient left semireclining in bed with call miller in reach. Visitor present and Vital signs stable . A: Patient exhibited Fair+ participation in therapy and responded well to treatment this session. Patient is progressing toward goal(s) 1 and 3. Patient met goal(s) 2. Pain, Poor endurance and Persistent weakness remain(s) a limiting factor. Patient continues to present with Decreased independence with ADL, Decreased functional ROM and Decreased strength/endurance for functional activity and will benefit from continued OT services to address above areas and improve functional status. P: Functional motor treatment, Patient/Caregivier Education, Equipment recommendations, Daily livingactivities, Therapeutic exercises, Neuromuscular Re -Education and Sensory integration SABRINA Sutherland Supervising OTR Yamileth Das Pager# [phone] Total Timed Treatment Codes: 26 Min Total Treatment Time: 26 Min Elizabeth Song LMSW - 05/15/2019 5:08 PM CSTSocial Work Note: 05/15/2019 5:08 PM ASHLEIGH confirmed with Nathaniel Well Puller ([phone]) at [facility] facility that MOT is not able to be provided today due to lack of staffing. Nathaniel staed that MOT will be provided tomorrow morning. ASHLEIGH notified family and Nurse(Cheri) that the patient will not be authorized to discharge to the Rehab facility until tomorrow. Elizabeth Jon LMSW Asset Protection Manager - [facility] Department of Care Management E: [email or web address] Shon Shafer PT - 05/15/2019 3:39 PM [employer] Physical Therapy Progress Note: Recommendations: Primary discharge plan: rehabilitation hospital Equipment recommendations: defer to facility PAIN: -Pain Description: aching -Pain Location: neck -Pain rating before treatment: 5, After treatment: 7 PRECAUTIONS: Weight Bearing Precaution: WBAT General Precautions: General Bracing/Cast present or required:Cervical collar: Woodland-j collar S: Patient agreeable to working with PT. O: Patient met Semi reclined in bed. Patient seen for the following: Bed mobility: - supine-sit: SBA/Setup with HOB slightly elevated - Sit to supine: Minimal assist for BLEs - repositioned patient to head of bed: Minimal assist to support BLEs while patient pushed self towards HOB - cued for log roll technique with bed mobility Transfers: sit-stand: SBA/Setup Static/dynamic standing balance: Fair+ Verbal cueing provided for correct hand placement and correct use of AD - assessed Patient balance in standing -Patient standing EOB x 3 minutes for change of diaper with no evidence of LOB or instability Gait: Assisted patient with ambulation as follows: 180 feet using Rolling Walker and SBA/Setup Patient presenting with Step-through gait pattern. Patient with decreased gait speed and step length. -assessed patient pain and balance with ambulation. Patient also able to ambulate x5 ft with CGA for safety Therapeutic exercise: patient educated in Adaptive equipment , Compensatory techniques/adaptive strategies, Deep breathing, Energy conservation, Fall prevention and General strengthening. After session, patient Semi reclined in bed and call miller provided. Patient family at bedside A: Patient tolerated session well. Patient progressing toward goals #1, #2, #3, #4. P: PT will - progress ambulation distance and bed mobility independence. Total Timed Tx Codes in Minutes: 17 Min Total Treatment Time in Minutes: 17 Min SHON JIANG PT, DPT Pgr. [phone] Jannet Atkins, TRACK WORKER - 05/15/2019 1:02 PM CSTSPEECH LANGUAGE PATHOLOGY Daily Progress Note - 05/15/2019 12:55-13:10 Jarrod Joyner : 1955 Age: [age] year old Sex: male SUBJECTIVE: Pt awake and eating lunch. Pt stated that today he does not have sore throat. He feels like swallowing is a little easier, but still "slower than normal." Pt wishes he could shave because his kohler is itchy. OBJECTIVE: Jarrod Joyner was seen for 1 TRACK WORKER treatment session this date. Treatment was provided due to suspected mild pharyngeal dysphagia following C3-C6 ACDF, now Post-op day 2. Progress on short term goals was as follows: Swallowing: - Patient will tolerate the safest, least restricted po diet texture without overt s/sx of aspiration or other negative effects on medical condition. Pt currently on regular textures and thin liquids. Pt consumed a meal of different solids including rice, green beans, chicken, and pudding. He produced 1 small cough when he was talking while eating pudding. No other overt s/s aspiration were noted across the meal. He achieved adequate oral clearancebetween bites. Voice quality remained consistently clear. He remains afebrile. Temp (24hrs), Av.8 C (98.2 F), Min:36.5 C (97.7 F), Max: 37.1 C (98.7 F). GOAL MET ASSESSMENT: Jarrod Joyner met the above goal and appears to be tolerating a regular texture diet with thin liquids without negative effects on medical condition. Pt reported improvement in swallowing comfort today.He did produce one small cough during his meal while he was talking when eating pudding, but otherwise did not produce overt s/s aspiration. He denied any globus sensation after swallowing. No further TRACK WORKER services appear to be indicated at this time. PLAN: 1. Continue regular textures and thin liquids and swallow precautions: sit upright, straws ok. 2. No further acute TRACK WORKER services indicated at this time, so service is signing off. Please re-consult if indicated. Thank you. Jannet Sinclair M.S., [facility])-TRACK WORKER Speech-Language Pathologist Pager: [phone] Office: [phone] signed by Jannet Sinclair SLP at 05/15/2019 1:29 PM CSTAbu Alfa Palafox MD - 05/15/2019 12:43 PM CST CLS Progress Note Date of Service: 05/15/19 Chief Complaint: Neck pain Gernalized Weakness SUBJECTIVE: Patient still reports Neck pain Denies any Pain radiation to his arms, dizziness or syncope. Denies any fever, chills or rigor. Denies any N/V/D PHYSICAL EXAM: Vitals: 05/16/19 0000 05/16/19 0420 05/16/19 0700 05/16/19 1200 BP: 126/66 120/60 121/65 115/62 Pulse: 75 65 63 62 Resp: 18 18 18 16 Temp: 37.2 C (99 F) 37.4 C (99.3 F) 36.8 C (98.3 F) 37.1 C (98.7 F) TempSrc: Oral Oral Oral Oral SpO2: 93% 93% 92% 93% Weight: Height: O2 Sat: SpO2 readings for the past 24 hrs: SpO2 05/13/19 1500 99 % 05/13/19 2000 96 % 05/14/19 0000 96 % 05/14/19 0400 98 % 05/14/19 0700 97 % 05/14/19 1100 94 % No intake or output data in the 24 hours ending 05/16/19 1243 General: alert and oriented x 3 ; no apparent distress HEENT: normocephalic atraumatic, pupils equal, round, reactive to light Neck: supple, no lymphadenopathy, no bruits, no JVD Lungs: clear to auscultation bilaterally, no crackles, no wheezes, cough is strong and effective Cardio: regular rate and rhythm, no murmurs, no gallops Abdomen: soft; non-tender; non-distended; normoactive bowel sounds Extremities: no clubbing, cyanosis, or edema, right upper extremity hand contracture, hand is weak with plantar flextion and muscle wasting. Skin: no rashes Neuro: cranial nerves grossly intact; sensation grossly intact; Weak lower extremities 4/5 martin. LABS/IMAGING - reviewed, pertinent results as below: No results found for this or any previous visit (from the past 48 hour(s)). No final results containing an impression from the past 48 hours were found. CURRENT MEDICATIONS - reviewed. Current Facility-Administered Medications Medication Dose Route Frequency Last Rate Last Dose gabapentin (NEURONTIN) capsule 300 mg 300 mg Oral TID 300 mg at 05/16/19 0759 HYDROcodone-acetaminophen (NORCO) 10-325 mg tablet 1 tablet 1 tablet Oral Q4HPRN 1 tablet at 05/16/19 0909 methocarbamol (ROBAXIN) tablet 500 mg 500 mg Oral TID 500 mg at 05/16/19 0759 acetaminophen (TYLENOL) tablet 650 mg 650 mg Oral Q6HPRN 650 mg at 1750 atorvastatin (LIPITOR) tablet 40 mg 40 mg Oral QHS 40 mg at 05/15/19 203 dblzooyidmo-dsbvokdkxgy-ky (SENSORCAINE W/EPINEPHRINE) 0.5 %-1:200,000 injection PRN 6 mL at 05/13/19 0922 mirtazapine (REMERON) tablet 7.5 mg 7.5 mg Oral QHS 7.5 mg at 05/15/19 2034 NaCl 0.9% (NS) IV infusion 1,000 mL 1,000 mL IV Infusion CONTINUOUS 50 mL/ hr at 05/13/19 1430 1,000 mL at 05/13/19 1430 NaCl 0.9% (NS) IV infusion 1,000 mL 1,000 mL IV Infusion CONTINUOUS 100 mL/ hr at 05/14/19 0152 1,000 mL at 05/14/19 0152 ondansetron (ZOFRAN (PF)) injection 4 mg 4 mg Slow IV Push Q6HPRN SERTraline (ZOLOFT) tablet 100 mg 100 mg Oral DAILY 100 mg at 05/16/19 0759 sodium chloride 0.9 % irrigation solution PRN 1 L at 05/13/19 0923 thrombin (recombinant) (RECOTHROM) topical solution PRN 5,000 Units at 05/13/19 0940 ASSESSMENT/PLAN Jarrod Joyner is a 64 year old male admitted to the hospital with: Severe C spine stenosis and cord compression s/p C3-6 AECD- Keep Neck Collar for 2 weeks Cervical myelopathy Plan: -Keep Neck Collar for 2 weeks -Patient Likely to be d/c to rehab, following -Post op care -Tele -C/W Speech, OT/OT eval -MBS does not appear to be necessary at this time as per ST -Obtain labs including CBC, BMP, INR. -Tele -Monitor for bleeding -Pain management -SCDs for DVT ppx Most recent hemoglobin A1c level: NA Advance Care Planning discussed and documented; advance care plan or surrogate decision maker documented in the medical record: full code, . Pain Assessment Documented as Negative, No Follow-Up Plan Required Patient treated with a beta-lactam antibiotic as definitive therapy MSSA bacteremia: NA Patients with Primary Headache Diagnosis and Imaging of the Head was Obtained: Tomasz Riley MD [phone] Kelby Salomon III, MD - 05/15/2019 9:04 AM CST 05/15/2019 Neurosurgery Progress Note CC: cervical myelopathy 24 Hr Events: POD2 from C3-6 ACDF. No acute issues overnight. Numbness and paraesthesia in upper extremities improved. Objective: A&Ox3 Face symmetric 5/5 strength in the bilateral upper and lower extremities except 4/5 bilateral security team lead strength Intact sensation BP (!) 151/73 | Pulse 57 | Temp 36.6 C (97.9 F) (Oral) | Resp 17 | Ht 1.651 m (5' 5") | Wt 57.7 kg (127 lb 3.3 oz) | SpO2 95% | BMI 21.17 kg/m Temp (24hrs), Av.8 C (98.2 F), Min:36.5 C (97.7 F), Max:37.1 C ( 98.7 F) No intake or output data in the 24 hours ending 05/15/19 0904 Assessment: Patient Active Problem List Diagnosis Cervical myelopathy Jarrod Joyner is a 64 year old male s/p C3-6 ACDF. Doing well Plan: Drain removed this AM Okay to discharge to rehab once he has been accepted Okay to shower Will need to wear cervical collar for 2 weeks F/U Dr. Nava 4-6 weeks Kelby Monroy MD Neurosurgery resident [employer] [employer] Associated attestation - Sanjay Nava MD - 05/16/2019 8:08 AM CSTI actively participated in the clinical decision making and agree with the resident note by Dr. Monroy with no changes. Sanjay Nava MD [facility] Elizabeth Jon V, PERINATOLOGY PHYSICIAN - 05/14/2019 2:54 PM [employer] Jarrod Joyner [id number] 1955 RE: Care Management Patient Choice Notification Your doctor has recommended that you have post-hospital care services at discharge. You can choose the provider you want, regardless of its relationship with [facility]. We will contact any of the agencieswithin the [facility] network, or any other agency upon your request. The hospital must assist patients, their families, or the patients technology sales representative in selecting a post- acute care provider by using and sharing data that includes, but is not limited to, Home Health Agencies, Correction Facilities, Inpatient Rehab, or [facility] Acute Care, Long Term data on quality measures and data on resource use measures. 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 The [facility] has given me a list of providers in the area available to me and/or my authorized technology sales representative. My choice(s) are listed below: ? Rehab: [facility], [address] - [address] Floor, [place], [place] () [phone] (F) [phone] Your signature on this form indicates that you have been given the following information: I have been advised of my right to choose the providers I wish ? If mcc facilities, long-term acute care hospitals, or home health agencies were recommended, I was given a list of facilities/agencies in my geographic area that deliver these services or ? I have pre-selected or am an established client with a facility/agency and choose to initiate/continue services 05/14/19 Patient/Guardian/Responsible Alliance Party Signature Date Signed copy placed on chart to be scanned into Electronic Medical Record elby Monroy III, MD - 05/14/2019 2:15 PM CSTBRIEF NEUROSURGERY NOTE POD #1 from C3-6 ACDF, no acute issues overnight Recommendations Agree with inpatient rehab recommendation by OT Continue drain for today; will remove tomorrow Will need to wear the cervical collar for 2 weeks Will need to follow-up with Dr. Nava in 4-6 weeks Kelby Monroy MD Neurosurgery resident 5: 15 PM [facility] Associated attestation - Sanjay Nava MD - 05/14/2019 5:15 PM CSTI actively participated in the clinical decision making and agree with the resident note by Dr. Monroy with no changes. Sanjay Nava MD [facility] Elizabeth Jon LMSW - 05/14/2019 11:54 AM CSTCare Management Social Functional Assessment Patient Name: Jarrod Joyner Age: [age] year old Sex: male Previous admit date: N/A Current diagnosis and co-morbidities: Cervical spondylosis with myelopathy Readmission Questions: Was patient discharged from any acute care hospital within the last 30 days: No Social Functional Assessment: Primary language spoken/preferred: Malagasy Mental Status: Alert & Oriented to Person, Place Information given by: Self Patient's support system: Other Name and number of support system: Naina Delgado (Sister) [phone] Primary Cpht: Self;Same as Support System MPOA: No Living Arrangement: Home Address of living arrangement : [address] [place] [phone] Persons living in home: Self;Same as support system Barriers to returning home: Declining function Baseline functional status- ambulation: Requires minimal to moderate assistance Functional status-baseline personal care: Requires minimal to moderate assistance Baseline functional status- driving: Dependent Baseline functional status- grocery shopping: Requires minimal to moderate assistance Functional status-baseline housekeeping: Requires minimal to moderate assistance Functional status-baseline meal prep: Requires minimal to moderate assistance Current functional status same as prior: Yes Do you have a PCP?: Yes Name of PCP: Cat [facility] Care Agency: No Provider Services: No DME Company: No Equipment: Walker Hemodialysis: No Community resources utilized: None Funding Resources: Medicare A & B Prescription coverage plan: Medicare Part D Pharmacy where meds are filled: Other Other pharmacy: [id number] [place] [facility] [address] AT [facility] Anticipated services prior to disharge: Continue Medical Eval Expected mode of discharge transportation: Wheelchair van Additional info required for discharge planning: Pending P/T O/T recommendation; Pending medical evaluation Recommended discharge plan: New placement SFA Complete: Social Functional Assessment complete: Yes Alcohol Use Screening (AUDIT-C) How often do you have a drink containing alcohol?: Never SCORE: 0 Did patient elect to have resources provided: No Actions taken: Provided support Role of Care Management explained. Elizabeth Jon LMSW Asset Protection Manager - [facility] Department of Care Management E: [email or web address] Shon Shafer PT - 05/14/2019 9:27 AM CSTPT Note: Consult received and EPIC reviewed. Attempted to see pt, however patient currently just starting to eat his breakfast and requesting to do PT after. Will attempt later as time permits. Thank you for this consult. SHON JIANG, PT, DPT Pgr. [phone] documented in this encounter Plan of Treatment Name Type Priority Associated Diagnoses Order Schedule CBC WITH DIFF LAB THERON THERON for 1 Occurrences starting 05/13/2019 until 05/13/2019 BASIC METABOLIC PANEL (NA, LAB THERON THERON for 1 Occurrences K, CL, CO2, GLUCOSE, BUN, starting 05/13/2019 CREATININE, CA) until 05/13/2019 Prothrombin Time / INR LAB THERON THERON for 1 Occurrences starting 05/13/2019 until 05/13/2019 CBC WITH DIFFERENTIAL LAB THERON Once for 1 Occurrences starting 05/13/2019 until 05/13/2019 Health Maintenance Due Date Last Done Comments [...] of this encounter Implants Implanted Type Area Tube Making Machine Operator Device Shelf Model / Identifier Expiration Serial / Lot Date Lordotic Sr Cortical Block [id number] Spinalgraft# [id number] - [id number] BONE N/A : Spinal Graft 12/24/2021 [id number] / Implanted: Qty: 1 on 05/13/2019 by Sanjay Nava MD at [facility] ([facility]) Neck Tech [id number] / [id number] Lordotic Sr Cortical Block [id number] Spinalgraft# [id number] - [id number] BONE N/A : Spinal Graft 12/24/2021 [id number] / Implanted: Qty: 1 on 05/13/2019 by Sanjay Nava MD at [facility] ([facility]) Neck Tech [id number] / [id number] Lordotic Sr Cortical Block [id number] Spinalgraft# [id number] - [id number] BONE N/A : Spinal Graft 12/24/2021 [id number] / Implanted: Qty: 1 on 05/13/2019 by Sanjay Nava MD at [facility] ([facility]) Neck Tech [id number] / [id number] 53mm Plate PLATE N/A: Medtronic 05/12/2020 [id number] / Implanted: Qty: 1 on 05/13/2019 by Sanjay Nava MD at [facility] ([facility]) Neck NA / NA Screw 3.5 X 15mm Medtronic #[id number] - Sna SCREW N/A: Medtronic 2020 [id number] / Implanted: Qty: 8 on 05/13/2019 by Sanjay Nava MD at [facility] ([facility]) Neck NA / NA documented as of this encounter Procedures Procedure Name Priority Date/Time Associated Comments Diagnosis UNILATERAL VENOUS THERON 05/16/2019 1:42 DUPLEX UPPER BY PM [facility] VASCULAR LAB CBC WITH Routine 05/14/2019 11:45 Results for this DIFFERENTIAL AM [facility] [facility] [facility] procedure are in the results section. CBC WITH Routine 05/14/2019 11:45 Results for this DIFFERENTIAL AM [facility] procedure are in the results section. BASIC METABOLIC Routine 05/14/2019 11:45 Results for this PANEL (NA, K, CL, AM [facility] [facility] procedure are in CO2, GLUCOSE, BUN, the results CREATININE, CA) section. XR CERVICAL SPINE 1 Routine 05/13/2019 10:44 Cervical Results for this VW AM [employer] spondylosis with procedure are in myelopathy the results section. ANTERIOR CERVICAL Level 5 05/13/2019 8:01 Cervical FUSION (greater than 5 AM [facility] spondylosis with days) myelopathy ABORH CONFIRMATION Routine 05/13/2019 7:27 Results for this AM [facility] [facility] procedure are in the results section. HB ABO GROUPING Routine 05/13/2019 7:10 Results for this AM [facility] [facility] procedure are in the results section. documented in this encounter Results CBC WITH DIFFERENTIAL (05/14/2019 11:45 AM [facility]) WBC 9.36 4.20 - 10.70 [facility] 10*3/L [facility] RBC 3.30 (L) 4.26 - 5.52 [facility] 10*6/L [facility] HGB 10.2 (L) 12.2 - 16.4 [facility] g/dL [facility] HCT 31.5 (L) 38.4 - 49.3 % [facility] MCV 95.5 81.7 - 95.6 fL [facility] MCH 30.9 26.1 - 32.7 pg [facility] MCHC 32.4 31.2 - 35.0 [facility] g/dL [facility] RDW-SD 46.8 38.5 - 51.6 fL [facility] RDW-CV 13.3 12.1 - 15.4 % [facility] PLT 212 150 - 328 [facility] 10*3/L [facility] MPV 9.5 (L) 9.8 - 13.0 fL [facility] NRBC/100 WBC 0.0 0.0 - 10.0 /100 [facility] WBCs [facility] NRBC x10^3 <0.01 10*3/L [facility] GRAN MAT (NEUT) % 74.9 % [facility] IMM GRAN % 0.50 % [facility] LYMPH % 14.4 % [facility] MONO % 8.5 % [facility] EOS % 1.1 % [facility] BASO % 0.6 % [facility] GRAN MAT x10^3(ANC) 7.00 (H) 1.99 - 6.95 [facility] I[facility] GRAN x10^3 0.05 0.00 - 0.06 [facility] 10*3/[facility] LYMPH x10^3 1.35 1.09 - 3.23 [facility] 10*3/[facility] MONO x10^3 0.80 0.36 - 1.02 [facility] 10*3/[facility]L [facility] EOS x10^3 0.10 0.06 - 0.53 [facility] 10*3/uL [facility] BASO x10^3 0.06 0.01 - 0.09 [facility] 10*3/uL [facility] Specimen Blood - VENOUS Performing Organization Address City/State/Zipcode Phone Number [facility] CLIA: [id number], [address] [place] [address] [facility] [address] BASIC METABOLIC PANEL (NA, K, CL, CO2, GLUCOSE, BUN, CREATININE, CA) (2019 11:45 AM [facility]) NA 138 135 - 145 [facility] mmol/L [facility] K 3.5 3.5 - 5.0 [facility] mmol/L [facility] CL 106 98 - 108 mmol/L [facility] CO2 TOTAL 23 23 - 31 mmol/L [facility] AGAP 9 2 - 16 [facility] BUN 21 7 - 23 mg/dL [facility] GLUCOSE 150 (H) 70 - 110 mg/dL [facility] CREATININE 0.77 0.60 - 1.25 [facility] mg/dL [facility] CALCIUM 8.0 (L) 8.6 - 10.6 [facility] mg/dL [facility] eGFR Calculation 101.4 mL/min/1.73m2 [facility] (Non- [facility]) [place] eGFR Calculation 122.9 mL/min/1.73m2 [facility] () [facility] Specimen Blood - VENOUS Narrative Performed At Association of Glomerular Filtration Rate [facility] (GFR) and Staging of Kidney Disease* [place] + + --+ + | GFR (mL/min/1.73 m2) | With Kidney Damage | Without Kidney Damage + + --+ + | >90 | Stage one | Normal + + --+ + | 60-89 | Stage two | Decreased GFR + + --+ + | 30-59 | Stage three | Stage three + + --+ + | 15-29 | Stage four | Stage four + + --+ + | <15 (or dialysis) | Stage five | Stage five + + --+ + *Each stage assumes the associated GFR level has been in effect for at least three months. Stages 1 to 5, with or without kidney disease, indicate chronic kidney disease. Notes: Determination of stages one and two (with eGFR >59mL/min/1.73 m2) requires estimation of kidney damage for at least three months as defined by structural or functional abnormalities of the kidney, manifested by either: Pathological abnormalities or Markers of kidney damage (including abnormalities in the composition of the blood or urine or abnormalities in imaging tests). Performing Organization Address City/State/Zipcode Phone Number [facility] CLIA: [id number], [address] [place] [address] [facility] XR CERVICAL SPINE 1 VW (05/13/2019 10:44 AM [facility]) Specimen Impressions Performed At FINDINGS/IMPRESSION: PACS/VR/DOSE Anterior spinal fusion C3-C6 is noted with intraoperative changes. Limited exams are obtained for intraoperative evaluation. No acute fractures are seen. No obvious hardware complications are identified. Osseous evaluation is suboptimal. Narrative Performed At HISTORY:SURGERY TO BE DONE IN OPERATING ROOM 8 PACS/VR/DOSE TECHNIQUE: Frontal and lateral views of the cervical spine were obtained. COMPARISON:None. Procedure Note [facility], Radiant Results Inft User - 05/13/2019 10:51 AM [facility] HISTORY:SURGERY TO BE DONE IN OPERATING ROOM 8 TECHNIQUE: Frontal and lateral views of the cervical spine were obtained. COMPARISON:None. IMPRESSION FINDINGS/IMPRESSION: Anterior spinal fusion C3-C6 is noted with intraoperative changes. Limited exams are obtained for intraoperative evaluation. No acute fractures are seen. No obvious hardware complications are identified. Osseous evaluation is suboptimal. Performing Organization Address City/State/Zipcode Phone Number PACS/VR/DOSE ABORH CONFIRMATION (05/13/2019 7:27 AM [facility]) ABO & RH A Positive LAB Comment: Performed at [facility] [address] [place] [phone] Toll Free: [phone] CLIA No. [id number] Specimen Performing Organization Address City[facility] Phone Number BLD LAB Type and Screen - ONCE Routine (05/13/2019 7:10 AM [facility]) ABO & RH A Positive LAB Comment: Performed at [facility] [address] [place] [phone] Toll Free: [phone] CLIA No. [id number] IAT Negative LAB Comment: Performed at [facility] [address] [place] [phone] Toll Free: [phone] CLIA No. [id number] Specimen Blood - VENOUS Performing Organization Address [facility] Phone Number BLD [facility] documented in this encounter Visit Diagnoses Diagnosis Cervical spondylosis with myelopathy - Primary Cervical myelopathy Cervical spondylosis with myelopathy Edema of upper extremity Edema documented in this encounter Administered Medications Medication Order MAR Action Action Date Dose Rate Site acetaminophen (TYLENOL) tablet Given 05/13/2019 5:50 PM [facility] 650 mg 650 mg 650 mg, Oral, Q6HPRN, Starting Sun05/13/19 at 1424, Until Discontinued, Routine, Pain (scale 1-3) atorvastatin (LIPITOR) tablet 40 mg Given 05/15/2019 8:33 PM [facility] 40 mg 40 mg, Oral, QHS, First dose on Sun05/13/19 at 2100, Until Discontinued, Routine Given 05/14/2019 9:57 PM [facility] 40 mg Given 05/13/2019 9:35 PM [facility] 40 mg sdmrzpfiamh-xczaijrwvhs-al (SENSORCAINE Given 05/13/2019 9:22 AM [facility] 6 mL Neck W/EPINEPHRINE) 0.5 %-1:200,000 injection PRN, Starting Sun05/13/19 at 0922, Until Discontinued, Routine, Intra-op gabapentin (NEURONTIN) capsule 300 mg Given 05/16/2019 2:04 PM [facility] 300 mg 300 mg, Oral, TID, First dose on Sun05/14/19 at 2000, Until Discontinued, Routine Given 05/16/2019 7:59 AM [facility] 300 mg Given 05/15/2019 8:33 PM [facility] 300 mg HYDROcodone-acetaminophen (NORCO) 10-325 Given 05/16/2019 3:34 PM [facility] 1 tablet mg tablet 1 tablet 1 tablet, Oral, Q4HPRN, Starting Sun05/14/19 at 1620, Until Discontinued, Routine, Pain (scale 4-6) Given 05/16/2019 9:09 AM [facility] 1 tablet Given 05/16/2019 12:56 AM [facility] 1 tablet methocarbamol (ROBAXIN) tablet 500 mg Given 05/16/2019 2:03 PM [facility] 500 mg 500 mg, Oral, TID, First dose on Sun05/14/19 at 2000, Until Discontinued, Routine Given 05/16/2019 7:59 AM [facility] 500 mg Given 05/15/2019 8:33 PM [facility] 500 mg mirtazapine (REMERON) tablet 7.5 mg Given 05/15/2019 8:34 PM [facility] 7.5 mg 7.5 mg, Oral, QHS, First dose on Sun05/13/19 at 2100, Until Discontinued, Routine, Reason for Non-Formulary Use: DRUG INTERACTION WITH FORMULARY ALTERNATIVES, [employer] team member approving Non-formulary medication: ALFA GALEAS Given 05/14/2019 9:57 PM [facility] 7.5 mg Given 05/13/2019 9:36 PM [facility] 7.5 mg NaCl 0.9% (NS) IV infusion 1,000 New Bag 05/13/2019 2:30 PM [facility] 1,000 mL 50 mL/hr mL at 50 mL/hr, IV Infusion, CONTINUOUS, Starting Sun05/13/19 at 1430, Until Discontinued, Routine NaCl 0.9% (NS) IV infusion 1,000 New Bag 05/14/2019 1:52 AM [facility] 1,000 mL 100 mL/hr mL at 100 mL/hr, IV Infusion, CONTINUOUS, Starting Sun05/13/19 at 1900, Until Discontinued, Routine SERTraline (ZOLOFT) tablet 100 mg Given 05/16/2019 7:59 AM [facility] 100 mg 100 mg, Oral, DAILY, First dose on Sun05/14/19 at 0900, Until Discontinued, Routine Given 05/15/2019 8:26 AM [facility] 100 mg Given 05/14/2019 8:06 AM [facility] 100 mg sodium chloride 0.9 % irrigation solution Given 05/13/2019 9:23 AM [facility] 1 L Neck PRN, Starting Sun05/13/19 at 0923, Until Discontinued, Intra-op thrombin (recombinant) (RECOTHROM) Given 05/13/2019 9:40 AM [facility] 5,000 Units Neck topical solution PRN, Starting Sun05/13/19 at 0920, Until Discontinued, Routine, Intra-op Given 05/13/2019 9:20 AM [facility] 5,000 Units Neck Medication Order MAR Action Action Date Dose Rate Site gabapentin (NEURONTIN) capsule Given 05/14/2019 8:06 AM [facility] 100 mg 100 mg 100 mg, Oral, DAILY, First dose on Sun05/14/19 at 0900, Until Discontinued, Routine HYDROcodone-acetaminophen (NORCO 5) 5-325 Given 05/13/2019 12:08 PM [facility] 1 tablet mg tablet 1 tablet 1 tablet, Oral, ONCE, 1 dose, Sun05/13/19 at 1130, Routine, PACU HYDROcodone-acetaminophen (NORCO 5) 5-325 Given 05/14/2019 1:58 PM [facility] 1 tablet mg tablet 1 tablet 1 tablet, Oral, Q6HPRN, Starting Sun05/13/19 at 1853, Until Sun05/14/19 at 1620, Routine, Pain (scale 7-10) Given 05/14/2019 8:06 AM [facility] 1 tablet Given 05/13/2019 7:35 PM [facility] 1 tablet lactated ringers IV infusion New Bag 05/13/2019 7:49 AM [facility] 1,000 mL 20 mL /hr 1,000 mL at 20 mL/hr, 1,000 mL, IV Infusion, ONCE, 1 dose, Sun05/13/19 at 0700, Routine, DSU Pre-op morpHINE injection 2 mg Given 05/13/2019 12:08 PM [facility] 2 mg 2 mg, Slow IV Push, Q5MIN PRN, 5 doses, Starting Sun05/13/19 at 1124, Until Sun05/13/19 at 1754, Routine, Pain (scale 4-6), PACU Given 05/13/2019 11:32 AM [facility] 2 mg ondansetron (ZOFRAN (PF)) injection 4 mg Given 05/13/2019 11:30 AM [facility] 4 mg 4 mg, Slow IV Push, PRN, 1 dose, Starting Sun05/13/19 at 1124, Until Sun05/13/19 at 1130, Routine, Nausea and Vomiting (N/V), PACU documented in this encounter Insurance Payer Benefit Plan / Subscriber ID Effective Dates Phone Address Type Group MEDICARE MEDICARE PART xxxxxxxxxxx 2019-Caryn [phone] [address] t [address] [id number] [place] KUMAR [id number] [facility] MEDICAID OF xxxxxxxxx 2019-Caryn [id number] [address] [place] [address] [id number] [place] [address] documented as of this encounter
[2019-05-16] MEDS: GENTAMICIN 0.3% OPTH DROP 5ML EACH EYE SCH ×2 (19:30→23:30)
[2019-05-16] MEDS ORDERED: ACETAMINOPHEN 325 MG TABLET PO PRN (19:31)
[2019-05-16] MEDS: ALEVE 220 MG PO SCH (20:00)
[2019-05-16] MEDS: MIRTAZAPINE 15 MG TAB PO SCH (20:03)
[2019-05-16] MEDS: GABAPENTIN 100 MG CAP PO SCH (20:03)
[2019-05-16] MEDS: ATORVASTATIN 40 MG TAB PO SCH (20:04)
[2019-05-16] MEDS: HYDROCODONE/APAP 10/325 TAB PO PRN (20:04)
[2019-05-17] MEDS: GENTAMICIN 0.3% OPTH DROP 5ML EACH EYE SCH ×6 (03:30→23:31)
[2019-05-17 06:19] LABS: Absolute Lymphocytes (CBC) 1.9 K/uL (0.7-4.9); Lymphocytes % 14.7 % (15.3-44.8); MPV 7.8 fL (7.6-11.3); RBC Red Blood Cell Count 3.77 M/uL (4.33-5.43)
[2019-05-17 06:34] LABS: BUN Blood Urea Nitrogen 20 mg/dL (7-18); Bicarbonate 27 mmol/L (21-32); Glucose Level 104 mg/dL (74-106); Magnesium 1.9 mg/dL (1.8-2.4); Potassium 4.2 mmol/L (3.5-5.1); Prealbumin 14.4 mg/dL (20-40); Sodium Level 137 mmol/L (136-145)
[2019-05-17] MEDS ORDERED: CYANOCOBALAMIN 1,000 MCG TAB PO SCH (08:00)
[2019-05-17] MEDS: ALEVE 220 MG PO SCH ×2 (08:00→19:46)
[2019-05-17] MEDS: HYDROCODONE/APAP 10/325 TAB PO PRN ×3 (08:44→19:45)
[2019-05-17] MEDS: methocarbamoL 500 MG TAB PO PRN ×2 (09:30→19:44)
[2019-05-17] MEDS: SERTRALINE HCL 100 MG TAB PO SCH (10:24)
[2019-05-17] MEDS: FE SULF/FA/VIT B COMP & C TAB PO SCH (10:25)
[2019-05-17] MEDS: FERROUS SULFATE 325 MG TAB PO SCH (10:26)
[2019-05-17] MEDS: PROMOD 30 ML DOSE PO SCH ×2 (10:27→19:45)
--- NOTE | 2019-05-17 18:42 | FAST ---
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 Srinivasan Carey M.D. 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 EATING: Not assessed/no information CODE: - ORAL HYGIENE: ORAL HYGIENE - STEP 1: Does the patient complete the activity by him/herself with no assistance (physical, verbal/nonverbal cueing, setup/clean-up)? No. ORAL HYGIENE - STEP 2: Does the patient need only setup/clean-up assistance from one helper? Yes. 1. [id number] ADMISSION PERFORMANCE: Setup or clean-up assistance CODE: 05 TOILETING HYGIENE: Not assessed/no information CODE: - BATHING: SHOWER/BATHE SELF - STEP 1: Does the patient complete the activity by him/herself with no assistance (physical, verbal/nonverbal cueing, setup/clean-up)? No. SHOWER/BATHE SELF - STEP 2: Does the patient need only setup/clean-up assistance from one helper? No. SHOWER/BATHE SELF - STEP 3: Does the patient need only verbal/nonverbal cueing or touching/steadying/contact guard assistance fro m one helper? No. SHOWER/BATHE SELF - STEP 4: Does the patient need physical assistance - for example lifting or trunk support from one helper - wi th the helper providing less than half of the effort? Yes. 1. [id number] ADMISSION PERFORMANCE: Partial/moderate assistance CODE: 03 DRESSING - UPPER BODY: DRESSING - UPPER BODY - STEP 1: Does the patient complete the activity by him/herself with no assistance (physical, verbal/nonverbal cueing, setup/clean-up)? No. DRESSING - UPPER BODY - STEP 2: Does the patient need only setup/clean-up assistance from one helper? No. DRESSING - UPPER BODY - STEP 3: Does the patient need only verbal/nonverbal cueing or touching/steadying/contact guard assistance fro m one helper? No. DRESSING - UPPER BODY - STEP 4: Does the patient need physical assistance - for example lifting or trunk support from one helper - wi th the helper providing less than half of the effort? No. DRESSING - UPPER BODY - STEP 5: Does the patient need physical assistance - for example lifting or trunk support from one helper - wi th the helper providing more than half of the effort? Yes. 1. [id number] ADMISSION PERFORMANCE: Substantial/maximal assistance CODE: 02 DRESSING - LOWER BODY: DRESSING - LOWER BODY - STEP 1: Does the patient complete the activity by him/herself with no assistance (physical, verbal/nonverbal cueing, setup/clean-up)? No. DRESSING - LOWER BODY - STEP 2: Does the patient need only setup/clean-up assistance from one helper? No. DRESSING - LOWER BODY - STEP 3: Does the patient need only verbal/nonverbal cueing or touching/steadying/contact guard assistance fro m one helper? No. DRESSING - LOWER BODY - STEP 4: Does the patient need physical assistance - for example lifting or trunk support from one helper - wi th the helper providing less than half of the effort? No. DRESSING - LOWER BODY - STEP 5: Does the patient need physical assistance - for example lifting or trunk support from one helper - wi th the helper providing more than half of the effort? No. DRESSING - LOWER BODY - STEP 6: Does the helper provide all of the effort? OR Is the assistance of two or more helpers required to co mplete the activity? Yes. 1. [id number] ADMISSION PERFORMANCE: Dependent CODE: 01 PUTTING ON/TAKING OFF FOOTWEAR: FOOTWEAR - STEP 1: Does the patient complete the activity by him/herself with no assistance (physical, verbal/nonverbal cueing, setup/clean-up)? No. FOOTWEAR - STEP 2: Does the patient need only setup/clean-up assistance from one helper? No. FOOTWEAR - STEP 3: Does the patient need only verbal/nonverbal cueing or touching/steadying/contact guard assistance fro m one helper? No. FOOTWEAR - STEP 4: Does the patient need physical assistance - for example lifting or trunk support from one helper - wi th the helper providing less than half of the effort? No. FOOTWEAR - STEP 5: Does the patient need physical assistance - for example lifting or trunk support from one helper - wi th the helper providing more than half of the effort? No. FOOTWEAR - STEP 6: Does the helper provide all of the effort? OR Is the assistance of two or more helpers required to co mplete the activity? Yes. 1. [id number] ADMISSION PERFORMANCE: Dependent CODE: 01 DOES THE PATIENT USE A WHEELCHAIR/SCOOTER? CODE: EXPR INDICATE THE TYPE OF WHEELCHAIR/SCOOTER USED: CODE: EXPR INDICATE THE TYPE OF WHEELCHAIR/SCOOTER USED: CODE: EXPR BLADDER AND BOWEL: CODE: EXPR CODE: EXPR SIGNATURE PANEL: The following modified sections: 1. [id number] Admission Performance, 1. [id number] Admission Performance, 1. [id number] Admission Performance, 1. [id number] Admission Performance, 1. [id number] Admission Performance, 1. [id number] Admission Performance were [electronically] signed by Shelby Thomas OT on Sat May 16 18:41:29 GMT-0600 (Central Standard Time)
[2019-05-17] MEDS ORDERED: INFLUENZA VACCINE (for 3y+) 0.5 ML DOSE IMVAC ONE (19:00)
[2019-05-17] MEDS ORDERED: PNEUMOCOCCAL VACCINE 0.5 ML IMVAC ONE (19:00)
[2019-05-17 19:32] LABS: Urine Appearance TURBID; Urine Bilirubin NEGATIVE (NEG); Urine Blood 3+ (NEG); Urine Color YELLOW; Urine Glucose NEGATIVE (NEG); Urine Protein 1+ (NEG); Urine Specific Gravity 1.015 (1.005-1.030)
[2019-05-17] MEDS: APIXABAN 2.5 MG TABLET PO SCH (19:43)
[2019-05-17] MEDS: ATORVASTATIN 40 MG TAB PO SCH (19:43)
[2019-05-17] MEDS: DOCUSATE NA/SENNA CONC 1 TAB PO PRN (19:44)
[2019-05-17] MEDS: MIRTAZAPINE 15 MG TAB PO SCH (19:45)
[2019-05-17] MEDS: GABAPENTIN 100 MG CAP PO SCH (19:45)
[2019-05-17 19:53] LABS: Urine Bacteria LOADED /HPF (NONE SEEN); Urine Culture Reflex Order REFLEXED; Urine RBC <5 /HPF (NONE SEEN)
--- NOTE | 2019-05-17 20:25 | R.HP ---
FACILITY: [facility] ENCOUNTER DATE AND TIME: 05/17/2019 20:22 (PAROLE AGENT) MR#: [id number] NAME JARROD PANG ADDRESS: [id number]: [place] [address] PHONE: DATE OF : 1955 AGE: 64 SSN# [id number] GENDER: Male DEXTERITY Right-handed MARITAL STATUS Single (Never ) [facility] PRE-HOSPITAL LIVING SETTING 01 - Home (private home/apt. board/care, assisted living, correction, transitional living) PRE-HOSPITAL LIVING WITH Family/Relatives ENCOUNTER PHYSICIAN: Dr. Srinivasan Carey M.D. REFERRING DOCTOR: DA ROWLEY DATE OF ADMISSION: 05/16/2019 18:22 (PAROLE AGENT) REFERRING FACILITY Acute care hospital HOME TYPE AND DETAILS: Type of home: single family house # of levels in the residence: 1 # of steps within the residence: 2 # of steps to enter the residence: 2 ADMISSION DIAGNOSIS: SEVERE CERVICAL STENOSIS AND CORD COMPRESSION ONSET DATE: 05/13/2019 PRIMARY DIAGNOSIS-RELATED SURGERIES: ANTERIOR CERVICAL FUSION ON 05/13/2019 SECONDARY/COMORBID DIAGNOSES (TIERED): - N/A CERVICAL MYELOPATHY HISTORY OF PRESENT ILLNESS (HPI): Pt. is a 64 yo Right-handed male. On 05/13/2019 he was admitted to Acute care hospital with diagnosis SEVERE CERVICAL STENOSIS AND CORD COMPRESSION. His impairment category is Spinal Cord Dysfunction 04 - Other Non-traumatic Spinal Cord Dysfunction (04.130). Pre-morbidly, Pt. was independent/mod-I in Locomotion, Balance, Safety Awareness, Transfers Control, Sphincter Control, Social Cognition, Self-Care, Communication, and Endurance; and he had good Locomot ion, Balance, Safety Awareness, Social Cognition, Transfers Control, Self-Care, Sphincter Control, Co mmunication, and Endurance. Currently, he has deficits of Locomotion, Safety Awareness, Balance, Transfers Control, Self-Care, Co mmunication, and Endurance. Pt. is now referred to [facility] for acute in-patient rehabilitation in order to maximize patient's functional independence in activities of daily living, strength, ROM, and mobi lity. Patient has realistic goal of being discharged at assistance level 6-Jett to reside at Home with [facility]/Relatives. Jarrod Pang is a 64 year old man, who lives in a single story house independently with his spouse and has no stairs to enter her home. He was independently livin g at home with his before having surgery. He has a history of slowly progressing weakness and inability to walk, right upper extreamity weakness and contracture, who was admitted for semiurgent C3-6 ACDF. Patient has been admitted at [facility] and is hemodynamically stable with relatively stable labs. He is now medically stable but in need of 24 hour nursing, doctor supervision and oversight while receiving active and ongoing participate in 3 hours of therapy a day/15 hours per week and receive care with intensive interdisciplinary approach. MEDICATION ALLERGIES: No Known Drug Allergies (NKDA) ENVIRONMENTAL ALLERGIES: - Substance Allergies None Known - Other Allergies None Known PAST MEDICAL HISTORY: CERVICAL MYELOPATHY FAMILY HISTORY: Family history is not contributory. SOCIAL HISTORY: - Home Living Family/Relatives REVIEW OF SYSTEMS: - Gen No Chills Fatigue No Fever - Eyes No Double Vision No itchiness - ENMT Difficulty Swallowing - CVS No Chest Discomfort No Chest Pain Fatigue No Weight Gain - Resp No Cough No Shortness of Breath - GI Continent No Abdominal Pain Constipation No Diarrhea - Continent No Kidney Pain No Painful Urination No Urinary Urgency - MSK No Joint Pain Muscle Cramps Stiffness - Skin No Itching No Rash No Suspicious Lesions - Neuro Coordination Difficulty No Difficulty with Concentration No Memory Loss No Seizures Weakness - Psych No Anxiety No Depression No HIV Exposure No Persistent Infections No Seasonal Allergies - Endo No Cold/Heat Intolerance No Excessive Hunger No Excessive Thirst No Excessive Urination PHYSICAL EXAM - Gen Alert and awake Lying in bed No apparent distress Oriented to: person, time, and place - Skin No skin breakdown. Normacephalic - Eyes No abnormalities - ENMT No abnormalities - Neck [place] J cervical collar is in place. - CVS RRR - Resp Clear to auscultation - Abd Soft - GI + bowel sounds Deferred - No abnormalities - Ext No significant edema - MSK 4/5 weakness in both lower extremities. - Neuro No focal deficits - Psych No abnormalities VITAL SIGNS Temperature: 97.9 SBP/DBP: 137/75 Pulse: 66 Resp: 16 NURSING: - Shower allowing shower - Bladder care per protocol - Skin care per protocol ACTIVITIES OOB only with supervision QI SCORES: - Self-Care A. Eating 06-Independent B. Oral hygiene 03-Partial/moderate assistance C. Toileting hygiene 02-Substantial/maximal assistance E. Shower/bathe self 03-Partial/moderate assistance F. Upper body dressing 03-Partial/moderate assistance G. Lower body dressing 03-Partial/moderate assistance H. Putting on/taking off footwear 03-Partial/moderate assistance - Mobility A. Roll left and right 03-Partial/moderate assistance B. Sit to lying 03-Partial/moderate assistance C. Lying to sitting on side of bed 03-Partial/moderate assistance D. Sit to stand 03-Partial/moderate assistance E. Chair/hpw-es-xrtar transfer 03-Partial/moderate assistance F. Toilet transfer 03-Partial/moderate assistance G. Car transfer 88-Not attempted due to medical condition or safety concerns I. Walk 10 feet 03-Partial/moderate assistance J. Walk 50 feet with two turns 02-Substantial/maximal assistance K. Walk 150 feet 88-Not attempted due to medical condition or safety concerns L. Walking 10 feet on uneven surfaces 88-Not attempted due to medical condition or safety concerns M. 1 step (curb) 88-Not attempted due to medical condition or safety concerns N. 4 steps 88-Not attempted due to medical condition or safety concerns O. 12 steps 88-Not attempted due to medical condition or safety concerns P. Picking up object 06-Independent R. Wheel 50 feet with two turns 88-Not attempted due to medical condition or safety concerns S. Wheel 150 feet 88-Not attempted due to medical condition or safety concerns - Bladder and Bowel Bladder continence 3-Incontinent daily Bowel continence 2-Frequently incontinent - Endurance Fair - Balance Fair - Safety Awareness Fair CURRENT FUNC. DEFICITS: Mobility, Endurance, Balance, Safety Awareness, and Self-Care MEDICATIONS: - Other See attached MAR (Medication Administration Record) ASSESSMENT: Pt. is a 64 yo Right-handed male.On 05/13/2019 he was admitted to [facility] care hospital with d iagnosis SEVERE CERVICAL STENOSIS AND CORD COMPRESSION.His impairment category is Spinal Cord Dysfunc tion 04 - Other Non-traumatic Spinal Cord Dysfunction (04.130).Pre-morbidly, Pt. was independent/mod -I in Locomotion, Balance, Safety Awareness, Transfers Control, Sphincter Control, Social Cognition, Self-Care, Communication, and Endurance; and he had good Locomotion, Balance, Safety Awareness, Socia l Cognition, Transfers Control, Self-Care, Sphincter Control, Communication, and Endurance.Currently, he has deficits of Locomotion, Safety Awareness, Balance, Transfers Control, Self-Care, Communicatio n, and Endurance.Pt. is now referred to [facility] for acute in-patient rehabi litation in order to maximize patient's functional independence in activities of daily living, streng th, ROM, and mobility.- Rehab Goal Patient has realistic goal of being discharged at assistance level 6-Jett to reside at Home with Fam tara/Relatives. Jarrod Pang is a 64 year old man, who lives in a single story house independently with his spouse and has no stairs to enter her home. He was independently livin g at home with his before having surgery. He has a history of slowly progressing weakness and inability to walk, right upper extreamity weakness and contracture, who was admitted for semiurgent C3-6 ACDF. Patient has been admitted at [facility] and is hemodynamically stable with relatively stable labs. He is now medically stable but in need of 24 hour nursing, doctor supervision and oversight while receiving active and ongoing participate in 3 hours of therapy a day/15 hours per week and receive care with intensive interdisciplinary approach.REHAB PLAN: - Physical Therapy Gait dysfunction - to improve, our physical therapists will perform initial evaluation of pt's status upon admission and devise an individualized program for Gait Training, and Wheel Chair mobility Inability to transfer - to improve, our physical therapists will perform initial evaluation of pt's s tatus upon admission and devise an individualized program for Bed mobility Need for home safety evaluation - to improve, our physical therapists will perform initial evaluation of pt's status upon admission and devise an individualized program for Home Evaluation Need in caregiver upon discharge - to improve, our physical therapists will perform initial evaluatio n of pt's status upon admission and devise an individualized program for Caregiver Training New precaution - to improve, our physical therapists will perform initial evaluation of pt's status u niru admission and devise an individualized program for Patient precaution education Edema - to improve, our physical therapists will perform initial evaluation of pt's status upon admi ssion and devise an individualized program for Elevation Training, and Lymphedema Therapy Poor balance - to improve, our physical therapists will perform initial evaluation of pt's status upo n admission and devise an individualized program for Balance Training Poor endurance - to improve, our physical therapists will perform initial evaluation of pt's status u niru admission and devise an individualized program for Endurance Training Weakness - to improve, our physical therapists will perform initial evaluation of pt's status upon ad mission and devise an individualized program for Aquatic Therapy, Neuromuscular Reeducation, and Stre ngthening Achieving independence - to improve, our physical therapists will perform initial evaluation of pt's status upon admission and devise an individualized program for Community Reintegration Activities - Occupational Therapy ADL deficits - to improve, our occupation therapists will perform initial evaluation of pt's status u niru admission and devise an individualized program for Bathing, Bed mobility, Community Reintegration , Cooking, Dressing, Eating, Fine Motor Skills, Grooming, Homemaking, Kitchen Mobility, Laundry, Lilia ent Education, Safety Awareness, Splinting - Positioning, Transfers(Toilet, Tub, Shower), and Wheel C hair Management Need for senior care specialist - to improve, our occupation therapists will perform initial evaluation of pt's s tatus upon admission and devise an individualized program for Caregiver Training Weakness - to improve, our occupation therapists will perform initial evaluation of pt's status upon admission and devise an individualized program for Aquatic Therapy, Balance, Endurance, UE ROM, and U E strengthening MEDICAL PLAN: - Diet Type Start Regular - Diet - Liquid Texture Start Regular - Tube Feed Start N/A - Bladder care per protocol - Skin care per protocol - Other See attached MAR (Medication Administration Record) - Diet - Solid Texture Regular - Shower shower DISCHARGE PLAN: - Estimated Length of Stay (days) 16. - Consensus on plan Discharge plan has been discussed with primary caregiver. Patient/Family is in agreement with the dave n. Primary caregiver is in agreement with the plan. - Patient/Family Goals Return home with assistance. - Planned Living Setting Upon Discharge Home, to live with Family/Relatives. Transitional Living. SIGNATURE PANEL: (PAROLE AGENT)
--- NOTE | 2019-05-17 20:27 | PAPE ---
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 Srinivasan Carey M.D. ADMISSION DIAGNOSIS: SEVERE CERVICAL STENOSIS AND CORD COMPRESSION ONSET DATE 05/13/2019 SECONDARY/COMORBID DIAGNOSES TIERED: - N/A CERVICAL MYELOPATHY POST-ADMISSION FUNCTIONAL/MEDICAL STATUS: - Bladder Same Bladder control device used: diaper Same Bladder medication used: NA Same accident frequency: Ind - No accidents in the past 7 days - Bowel Same accident frequency: Ind - No accidents in the past 7 days - Walking Same score based on distance walked: 0(N/A) Same score based on distance walked: 2(5149ft) - Wheelchair Same score based on distance traveled: 0(N/A) STATUS CHANGE EVALUATION: No change in Functional or Medical Status is identified compared with Pre-Admission screening. PATIENT NEEDS CLOSE MEDICAL SUPERVISION BY A REHABILITATION PHYSICIAN FOR: Coordination of Treatment Team Medical and Co-Morbidity Management Post-Op Complications Wound Care PATIENT REQUIRES 24X7 REHAB NURSING FOR MEDICAL AND FUNCTIONAL MGT. OF THE FOLLOWING DEFICITS: Disease Management Medication Management Patient/Family Education Providing Safe Environment Skin Integrity PATIENT REQUIRES INTENSIVE, COORDINATED INTERDISCIPLINARY APPROACH TO REHAB: Arranging Home Equipment/Services Discharge Planning Family Intervention/Training Smoke Tester/Case Management LIST OF IDENTIFIED AND POTENTIAL PROBLEMS: Alteration in leisure activities Bladder, Incontinence Bowel, Incontinence Infection, Actual or Potential Mobility Impaired Pain, Alteration in Comfort Self Care Deficit Skin Integrity, Actual or Potential Urinary Tract Infection (UTI), Actual or Potential PATIENT COULD BE AT RISK FOR COMPLICATIONS FROM ADVERSE MEDICAL CONDITIONS DUE TO HIS/HER COMORBIDITI ES AND THE RIGORS OF THE INTENSIVE REHABILLITATION PROGRAM. METHODS OR INTERVENTIONS TO AVOID COMPLIC ATIONS INCLUDE: - Bleeding Assess lab values and manage abnormalities. Nursing to teach precautions for anti-coagulation therapy . Wound to be assessed every shift. - Infection Clinical staff to assess and manage the signs and symptoms of infection including fever, redness, war mth, etc. - Urinary Tract Infection - Falls Patient will be evaluated for Fall Precautions and will be placed on Fall Precautions as indicated pe r protocol. - Skin Breakdown Nursing will assess skin daily using assessment tool and will place on Skin Breakdown Precautions as indicated per protocol. - Pain Clinical staff may employ non-medication methods such as massage, distraction, decrease stimulus, etc . as needed. Clinical staff will assess patient's pain level every shift per protocol to assess and e nsure pain management effectiveness. Medications will be given and the pain level re-assessed. PRELIMINARY PLAN OF CARE: - Physical Therapy Patient needs Physical Therapy for a daily minimum of 1.5 hours at least 5 out of 7 days, to improve: Mobility, Strengthening, Transfers, Stretching, ROM, Endurance, Ability to manage stairs, Gait, and Balance. - Speech Therapy Patient needs Speech Therapy for a daily minimum of 0.5 hours at least 5 out of 7 days, to improve: S wallowing, Cognition, Language Skills, and Compensatory Strategies. - Rehabilitation Nursing Patient requires 24x7 Rehabilitation Nursing for: Pain Issues, Identifying and preventing risk factor s, Monitoring and reporting current medical conditions, Assisting with ambulation and transfer, Luis Antonio ting with all ADL-s, Teaching patients about disease process and medications, Family teaching, Provid ing safe environment, Bowel and Bladder Issues, Skin Integrity, and Medication Management. Patient needs Smoke Tester and/or Case Management for: Discharge Planning, Arranging Home Equipmen t or Services, and Family Interventions. - Dietary and Nutrition Services Patient needs Dietary and Nutrition Services for: Adequate Nutrition, Nutritional Supplements, and Nu tritional Education. - Occupational Therapy Patient needs Occupational Therapy for a daily minimum of 1.5 hours at least 5 out of 7 days, to impr ove Activities of Daily Living, including: Eating, Grooming, Bathing, Dressing, Toileting, Toilet Tra nsfers, Community Reintegration, Higher functional activities, Adaptive Equipment, Splinting, Househo ld Tasks, and Other activities as determined. QI SCORES: - Self-Care A. Eating 06-Independent B. Oral hygiene 03-Partial/moderate assistance C. Toileting hygiene 02-Substantial/maximal assistance E. Shower/bathe self 03-Partial/moderate assistance F. Upper body dressing 03-Partial/moderate assistance G. Lower body dressing 03-Partial/moderate assistance H. Putting on/taking off footwear 03-Partial/moderate assistance - Mobility A. Roll left and right 03-Partial/moderate assistance B. Sit to lying 03-Partial/moderate assistance C. Lying to sitting on side of bed 03-Partial/moderate assistance D. Sit to stand 03-Partial/moderate assistance E. Chair/dyv-ie-kwknz transfer 03-Partial/moderate assistance F. Toilet transfer 03-Partial/moderate assistance G. Car transfer 88-Not attempted due to medical condition or safety concerns I. Walk 10 feet 03-Partial/moderate assistance J. Walk 50 feet with two turns 02-Substantial/maximal assistance K. Walk 150 feet 88-Not attempted due to medical condition or safety concerns L. Walking 10 feet on uneven surfaces 88-Not attempted due to medical condition or safety concerns M. 1 step (curb) 88-Not attempted due to medical condition or safety concerns N. 4 steps 88-Not attempted due to medical condition or safety concerns O. 12 steps 88-Not attempted due to medical condition or safety concerns P. Picking up object 06-Independent R. Wheel 50 feet with two turns 88-Not attempted due to medical condition or safety concerns S. Wheel 150 feet 88-Not attempted due to medical condition or safety concerns - Bladder and Bowel Bladder continence 3-Incontinent daily Bowel continence 2-Frequently incontinent - Endurance Fair - Balance Fair - Safety Awareness Fair POTENTIAL FUNCTIONAL GOALS FOR PATIENT TO ACHIEVE BY DISCHARGE: - Safety Precaution Patient will remain free from falls or injury at time of discharge. - Bed Mobility Patient will perform bed mobility at 4-Lev level of assistance. - Transfers Patient will complete transfers from bed to chair at 4-Lev level of assistance. - Mobility Patient will ambulate 150 ft with 4-Lev level of assistance with RW. PATIENT REHAB POTENTIAL Jorge PANG is able and expected to receive 3 hours of individualized therapy daily on at least 5 of ev ludmila 7 days Jorge PANG's prognosis for significant practical improvement within a reasonable period of time appear s Fair Expected level of measurable improvement will be of a practical value to Jorge PANG's functional capac ity or adaptations to impairments Has a viable Discharge Plan Medically appropriate; condition is sufficiently stable to participate in intensive rehab program DISCHARGE PLAN: - Estimated Length of Stay (days) 16. - Consensus on plan Discharge plan has been discussed with primary caregiver. Patient/Family is in agreement with the dave n. Primary caregiver is in agreement with the plan. - Patient/Family Goals Return home with assistance. - Planned Living Setting Upon Discharge Home, to live with Family/Relatives. Transitional Living. CONCLUSION ON REHABILITATION NECESSITY: I have evaluated patient's pre-admission functional status and, comparing it to the patient's post-ad mission functional status now, I conclude that the pre-admission assessment was accurate. Patient's c ondition on admission supports the medical necessity of admission to IRF. It is safe to proceed with patient's therapy program. 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
[2019-05-18] MEDS: GENTAMICIN 0.3% OPTH DROP 5ML EACH EYE SCH ×6 (03:41→23:15)
[2019-05-18] MEDS: ALEVE 220 MG PO SCH ×2 (08:00→20:00)
[2019-05-18] MEDS: HYDROCODONE/APAP 10/325 TAB PO PRN ×3 (08:53→20:19)
[2019-05-18] MEDS: APIXABAN 2.5 MG TABLET PO SCH ×2 (08:54→20:19)
[2019-05-18] MEDS: FERROUS SULFATE 325 MG TAB PO SCH (08:55)
[2019-05-18] MEDS: PROMOD 30 ML DOSE PO SCH ×2 (08:55→20:20)
[2019-05-18] MEDS: CRANBERRY FRUIT EXTRACT 200 MG CAP PO SCH ×2 (08:55→20:18)
[2019-05-18] MEDS: FE SULF/FA/VIT B COMP & C TAB PO SCH (08:55)
[2019-05-18] MEDS: SERTRALINE HCL 100 MG TAB PO SCH (08:55)
[2019-05-18] MEDS: DOCUSATE NA/SENNA CONC 1 TAB PO PRN (20:18)
[2019-05-18] MEDS: methocarbamoL 500 MG TAB PO PRN (20:19)
[2019-05-18] MEDS: MIRTAZAPINE 15 MG TAB PO SCH (20:19)
[2019-05-18] MEDS: GABAPENTIN 100 MG CAP PO SCH (20:19)
[2019-05-18] MEDS: ATORVASTATIN 40 MG TAB PO SCH (20:20)
[2019-05-19] MEDS: GENTAMICIN 0.3% OPTH DROP 5ML EACH EYE SCH ×3 (03:00→11:46)
[2019-05-19] MEDS: HYDROCODONE/APAP 10/325 TAB PO PRN ×2 (07:15→21:05)
[2019-05-19] MEDS: ALEVE 220 MG PO SCH ×2 (08:00→20:00)
[2019-05-19] MEDS: PROMOD 30 ML DOSE PO SCH ×2 (08:00→20:59)
[2019-05-19] MEDS: APIXABAN 2.5 MG TABLET PO SCH ×2 (08:55→20:58)
[2019-05-19] MEDS: FE SULF/FA/VIT B COMP & C TAB PO SCH (08:55)
[2019-05-19] MEDS: SERTRALINE HCL 100 MG TAB PO SCH (08:55)
[2019-05-19] MEDS: CRANBERRY FRUIT EXTRACT 200 MG CAP PO SCH ×2 (08:55→21:00)
[2019-05-19] MEDS: FERROUS SULFATE 325 MG TAB PO SCH (08:55)
[2019-05-19] MEDS: VITAMIN B COMPLEX 1 CAP PO SCH (08:57)
[2019-05-19] MEDS: ATORVASTATIN 40 MG TAB PO SCH (20:58)
[2019-05-19] MEDS: GABAPENTIN 300 MG CAP PO SCH (20:58)
[2019-05-19] MEDS: MIRTAZAPINE 15 MG TAB PO SCH (20:59)
[2019-05-19] MEDS: ERYTHROMYCIN 1 APPL/1 GM TUBE EACH EYE SCH (21:00)
[2019-05-19] MEDS: DOCUSATE NA/SENNA CONC 1 TAB PO PRN (21:01)
--- NOTE | 2019-05-19 21:03 | CON ---
History Of Present Illness: Mr. Joyner was recently admitted to rehab following an injury to his cervical spine. He states about 4 months ago, he fell and hit his head on a log and then he noticed that he was having weakness of his legs and was diagnosed with spinal cord dysfunction, and underwent anterior cervical fusion. Over the past few days, he has felt like something entered his right eye. His doctor put him on gentamicin 4 times a day, but he has not had any improvement in his symptoms. Past Medical History: Positive for cholesterol, anxiety, and depression. He had a stomach surgery and hernia repair. The stomach surgery was for an ulcer. Family History: Negative. Social History: He no longer smokes. He used to smoke a pack per week about 2 months ago. He is single. Medications: Include; Eliquis 2.5 mg b.i.d., Lipitor 40 mg q.h.s., iron 325 mg daily, Neurontin 300 mg b.i.d., and gentamicin q.4 hours both eyes. Allergies: NKDA Review of Systems: General: He is alert and oriented x3. Ear, Nose, Throat: He has some neck discomfort due to a recent surgery. Cardiac: He denies chest pain. Lungs: He does have a cough. Musculoskeletal: Also has neck pain status post surgery. Neuro: He has a spinal cord injury. Hematologic: Negative. Skin: Negative. Immune: Negative. GI: He has constipation. : He has a bladder problem, in that he does not feel when he goes. He may have a UTI. Ocular: His near vision without correction is 20/50 in the right eye and 20/50 in the left eye. His lids are normal except the right lower lid is entropic with lashes rubbing on the cornea. The right lower lid was taped in a manner that repaired the entropion. However, he still had a couple of lashes touching the cornea and these were removed. Cornea, he has a small abrasion inferiorly in the right eye. He has 3+ arcus in both eyes. His anterior chamber appears shallow in both eyes. His pupil was peaked inferiorly in the right eye. He states that this is a pre existing condition. He has nuclear sclerotic cataract in both eyes. His pupils were reactive to light. There is no afferent pupillary defect. He is orthophoric in both eyes and he had normal versions in both eyes. His visual field to confrontation was normal in both eyes. Dilation was contraindicated because of the narrow appearing angles. Impression: Mr. 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 He has narrow angles in both eyes. Plan: To place him on Acular daily OD for pain and discontinue the gentamicin and start him on erythromycin ointment bid OD: The plan is to follow up with Dr. Hale in her office in a week or after he is discharged. CANDIDA/COTY Voice ID: [id number] Report ID: [id number] PABLO
--- NOTE | 2019-05-19 23:04 | R.PN ---
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 Pt denied any depression. Functional activities and transfers done with moderate to maximum assistance. VITAL SIGNS Temperature: 97.9 SBP/DBP: 127/71 Pulse: 73 Resp: 16 MEDICATION ALLERGIES: No Known Drug Allergies (NKDA) ENVIRONMENTAL ALLERGIES: - Substance Allergies None Known - Other Allergies None Known NURSING: - Shower allowing shower - Bladder care per protocol - Skin care per protocol ACTIVITIES OOB only with supervision THERAPIES: - Orthotics/Prosthetics Orthotic Evaluation. Splinting/Casting. - Dietary and Nutrition Adequate Nutrition. Nutritional Education. Nutritional Supplements. PHYSICAL EXAM - Gen Alert and awake Lying in bed No apparent distress Oriented to: person, time, and place - Skin No skin breakdown. Normacephalic - Eyes No abnormalities - ENMT No abnormalities - Neck [employer] [place] cervical collar is in place. - CVS RRR - Resp Clear to auscultation - Abd Soft - GI + bowel sounds Deferred - No abnormalities - Ext No significant edema - MSK 4/5 weakness in both lower extremities. - Neuro No focal deficits - Psych No abnormalities ASSESSMENT: Pt. is a 64 yo Right-handed male.On 05/13/2019 he was admitted to [facility] hospital with d iagnosis SEVERE CERVICAL STENOSIS AND CORD COMPRESSION.His impairment category is Spinal Cord Dysfunc tion 04 - Other Non-traumatic Spinal Cord Dysfunction (04.130).Pre-morbidly, Pt. was independent/mod -I in Locomotion, Balance, Safety Awareness, Transfers Control, Sphincter Control, Social Cognition, Self-Care, Communication, and Endurance; and he had good Locomotion, Balance, Safety Awareness, Socia l Cognition, Transfers Control, Self-Care, Sphincter Control, Communication, and Endurance.Currently, he has deficits of Locomotion, Safety Awareness, Balance, Transfers Control, Self-Care, Communicatio n, and Endurance.Pt. is now referred to [facility] for acute in-patient rehabi litation in order to maximize patient's functional independence in activities of daily living, streng th, ROM, and mobility.- Rehab Goal Patient has realistic goal of being discharged at assistance level 6-Jett to reside at Home with Fam tara/Relatives. MDM/PLAN: - Physical Therapy Gait dysfunction - to improve, our physical therapists will perform initial evaluation of pt's statu s upon admission and devise an individualized program for Gait Training, and Wheel Chair mobility Inability to transfer - to improve, our physical therapists will perform initial evaluation of pt's status upon admission and devise an individualized program for Bed mobility Need for home safety evaluation - to improve, our physical therapists will perform initial evaluatio n of pt's status upon admission and devise an individualized program for Home Evaluation Need in caregiver upon discharge - to improve, our physical therapists will perform initial evaluati on of pt's status upon admission and devise an individualized program for Caregiver Training New precaution - to improve, our physical therapists will perform initial evaluation of pt's status upon admission and devise an individualized program for Patient precaution education Edema - to improve, our physical therapists will perform initial evaluation of pt's status upon admis prachi and devise an individualized program for Elevation Training, and Lymphedema Therapy Poor balance - to improve, our physical therapists will perform initial evaluation of pt's status up on admission and devise an individualized program for Balance Training Poor endurance - to improve, our physical therapists will perform initial evaluation of pt's status upon admission and devise an individualized program for Endurance Training Weakness - to improve, our physical therapists will perform initial evaluation of pt's status upon a dmission and devise an individualized program for Aquatic Therapy, Neuromuscular Reeducation, and Str engthening Achieving independence - to improve, our physical therapists will perform initial evaluation of pt's status upon admission and devise an individualized program for Community Reintegration Activities - Occupational Therapy ADL deficits - to improve, our occupation therapists will perform initial evaluation of pt's status upon admission and devise an individualized program for Bathing, Bed mobility, Community Reintegratio n, Cooking, Dressing, Eating, Fine Motor Skills, Grooming, Homemaking, Kitchen Mobility, Laundry, Pat ient Education, Safety Awareness, Splinting - Positioning, Transfers(Toilet, Tub, Shower), and Wheel Chair Management Need for career center director - to improve, our occupation therapists will perform initial evaluation of pt's status upon admission and devise an individualized program for Caregiver Training Weakness - to improve, our occupation therapists will perform initial evaluation of pt's status upon admission and devise an individualized program for Aquatic Therapy, Balance, Endurance, UE ROM, and UE strengthening - Other See attached MAR (Medication Administration Record) - Diet Type Continue Regular - Diet - Liquid Texture Continue Regular - Tube Feed Continue N/A - Bladder care per protocol - Skin care per protocol - Diet - Solid Texture Continue Regular - Shower allowing shower FUNCTIONAL STATUS: UPDATED AT WEEKLY TEAM CONFERENCE - Bladder Same Bladder control device used: diaper Same Bladder medication used: NA Same accident frequency: 7-Ind - No accidents in the past 7 days - Bowel Same accident frequency: 7-Ind - No accidents in the past 7 days - Walking Same score based on distance walked: 0(N/A) Same score based on distance walked: 2(50-149ft) - Wheelchair Same score based on distance traveled: 0(N/A) FUNCTIONAL STATUS: - Self-Care A. Eating sup B. Grooming modA C. Bathing maxA D. Dressing - Upper Lev E. Dressing - Lower modA F. Toileting Lev - Sphincter Control G. Bladder control sup H. Bowel control Lev - Transfers Control I. Bed/Chair/Wheelchair maxA J. Toilet maxA K. Tub/Shower maxA - Locomotion L. Walk/Wheelchair (B) modA M. Stairs ADNO - Communication N. Comprehension (B) sup O. Expression (B) sup - Social Cognition P. Social Interaction Ind Q. Problem Solving sup R. Memory sup - Endurance Fair - Balance Poor - Safety Awareness Fair QI SCORES: - Self-Care A. Eating 06-Independent B. Oral hygiene 03-Partial/moderate assistance C. Toileting hygiene 02-Substantial/maximal assistance E. Shower/bathe self 03-Partial/moderate assistance F. Upper body dressing 03-Partial/moderate assistance G. Lower body dressing 03-Partial/moderate assistance H. Putting on/taking off footwear 03-Partial/moderate assistance - Mobility A. Roll left and right 03-Partial/moderate assistance B. Sit to lying 03-Partial/moderate assistance C. Lying to sitting on side of bed 03-Partial/moderate assistance D. Sit to stand 03-Partial/moderate assistance E. Chair/smb-td-[id number] transfer 03-Partial/moderate assistance F. Toilet transfer 03-Partial/moderate assistance G. Car transfer 88-Not attempted due to medical condition or safety concerns I. Walk 10 feet 03-Partial/moderate assistance J. Walk 50 feet with two turns 02-Substantial/maximal assistance K. Walk 150 feet 88-Not attempted due to medical condition or safety concerns L. Walking 10 feet on uneven surfaces 88-Not attempted due to medical condition or safety concerns M. 1 step (curb) 88-Not attempted due to medical condition or safety concerns N. 4 steps 88-Not attempted due to medical condition or safety concerns O. 12 steps 88-Not attempted due to medical condition or safety concerns P. Picking up object 06-Independent R. Wheel 50 feet with two turns 88-Not attempted due to medical condition or safety concerns S. Wheel 150 feet 88-Not attempted due to medical condition or safety concerns - Bladder and Bowel Bladder continence 3-Incontinent daily Bowel continence 2-Frequently incontinent - Endurance Fair - Balance Fair - Safety Awareness Fair [facility]IC[facility]: Mobility, Endurance, Balance, Safety Awareness, and Self-Care SIGNATURE PANEL: (CDT)
[2019-05-20] MEDS: HYDROCODONE/APAP 10/325 TAB PO PRN ×3 (06:28→17:53)
[2019-05-20] MEDS: LIDOCAINE 4% PATCH TOP SCH (07:18)
[2019-05-20] MEDS: PROMOD 30 ML DOSE PO SCH ×2 (08:00→20:00)
[2019-05-20] MEDS: ALEVE 220 MG PO SCH ×2 (08:00→20:00)
[2019-05-20] MEDS: APIXABAN 2.5 MG TABLET PO SCH ×2 (08:38→19:19)
[2019-05-20] MEDS: VITAMIN B COMPLEX 1 CAP PO SCH (08:38)
[2019-05-20] MEDS: FE SULF/FA/VIT B COMP & C TAB PO SCH (08:38)
[2019-05-20] MEDS: ERYTHROMYCIN 1 APPL/1 GM TUBE EACH EYE SCH ×2 (08:38→19:18)
[2019-05-20] MEDS: SERTRALINE HCL 100 MG TAB PO SCH (08:38)
[2019-05-20] MEDS: FERROUS SULFATE 325 MG TAB PO SCH (08:38)
[2019-05-20] MEDS: KETOROLAC OPTHALMIC 5 ML BOT OPTH SCH (08:39)
[2019-05-20] MEDS: CRANBERRY FRUIT EXTRACT 200 MG CAP PO SCH ×2 (08:39→19:19)
[2019-05-20] MEDS: GABAPENTIN 300 MG CAP PO SCH ×2 (08:39→19:19)
--- NOTE | 2019-05-20 14:50 | FAST ---
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 Srinivasan Carey M.D. 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 EATING: EATING - STEP 1: Does the patient complete the activity by him/herself with no assistance (physical, verbal/nonverbal cueing, setup/clean-up)? No. EATING - STEP 2: Does the patient need only setup/clean-up assistance from one helper? Yes. 1. [id number] ADMISSION PERFORMANCE: Setup or clean-up assistance CODE: 05 ORAL HYGIENE: Not assessed/no information CODE: - TOILETING HYGIENE: TOILETING HYGIENE - STEP 1: Does the patient complete the activity by him/herself with no assistance (physical, verbal/nonverbal cueing, setup/clean-up)? No. TOILETING HYGIENE - STEP 2: Does the patient need only setup/clean-up assistance from one helper? Yes. 1. [id number] ADMISSION PERFORMANCE: Setup or clean-up assistance CODE: 05 BATHING: Not assessed/no information CODE: - DRESSING - UPPER BODY: DRESSING - UPPER BODY - STEP 1: Does the patient complete the activity by him/herself with no assistance (physical, verbal/nonverbal cueing, setup/clean-up)? No. DRESSING - UPPER BODY - STEP 2: Does the patient need only setup/clean-up assistance from one helper? No. DRESSING - UPPER BODY - STEP 3: Does the patient need only verbal/nonverbal cueing or touching/steadying/contact guard assistance fro m one helper? Yes. 1. [id number] ADMISSION PERFORMANCE: Supervision or touching assistance CODE: 04 DRESSING - LOWER BODY: DRESSING - LOWER BODY - STEP 1: Does the patient complete the activity by him/herself with no assistance (physical, verbal/nonverbal cueing, setup/clean-up)? No. DRESSING - LOWER BODY - STEP 2: Does the patient need only setup/clean-up assistance from one helper? No. DRESSING - LOWER BODY - STEP 3: Does the patient need only verbal/nonverbal cueing or touching/steadying/contact guard assistance fro m one helper? Yes. 1. [id number] ADMISSION PERFORMANCE: Supervision or touching assistance CODE: 04 PUTTING ON/TAKING OFF FOOTWEAR: FOOTWEAR - STEP 1: Does the patient complete the activity by him/herself with no assistance (physical, verbal/nonverbal cueing, setup/clean-up)? No. FOOTWEAR - STEP 2: Does the patient need only setup/clean-up assistance from one helper? No. FOOTWEAR - STEP 3: Does the patient need only verbal/nonverbal cueing or touching/steadying/contact guard assistance fro m one helper? No. FOOTWEAR - STEP 4: Does the patient need physical assistance - for example lifting or trunk support from one helper - wi th the helper providing less than half of the effort? No. FOOTWEAR - STEP 5: Does the patient need physical assistance - for example lifting or trunk support from one helper - wi th the helper providing more than half of the effort? Yes. 1. [id number] ADMISSION PERFORMANCE: Substantial/maximal assistance CODE: 02 DOES THE PATIENT USE A WHEELCHAIR/SCOOTER? CODE: EXPR INDICATE THE TYPE OF WHEELCHAIR/SCOOTER USED: CODE: EXPR INDICATE THE TYPE OF WHEELCHAIR/SCOOTER USED: CODE: EXPR BLADDER AND BOWEL: H350. BLADDER CONTINENCE (3-DAY ASSESSMENT PERIOD): Always incontinent CODE: 4 H400. BOWEL CONTINENCE (3-DAY ASSESSMENT PERIOD): Always incontinent (no episodes of continent bowel movements) CODE: 3 SIGNATURE PANEL: The following modified sections: 1. [id number] Admission Performance, 1. [id number] Admission Performance, 1. [id number] Admission Performance, 1. [id number] Admission Performance, 1. [id number] Admission Performance, 1. [id number] Admission Performance, 1. [id number] Admission Performance, 1. [id number] Admission Performance , H350. Bladder Continence (3-day assessment period), H400. Bowel Continence (3-day assessment period ) were [electronically] signed by Ernestine StaleyNBrandy on SunMay 20 2019 14:49:38 T-0500 (Central Daylight Time)
--- NOTE | 2019-05-20 17:25 | R.PN ---
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 Pt denied any depression. Functional activities and transfers done with moderate to maximum assistance. Ambulated 390' with contact guard assistance using rolling walker. VITAL SIGNS Temperature: 97.9 SBP/DBP: 102/66 Pulse: 63 Resp: 14 MEDICATION ALLERGIES: No Known Drug Allergies (NKDA) ENVIRONMENTAL ALLERGIES: - Substance Allergies None Known - Other Allergies None Known NURSING: - Shower allowing shower - Bladder care per protocol - Skin care per protocol ACTIVITIES OOB only with supervision THERAPIES: - Orthotics/Prosthetics Orthotic Evaluation. Splinting/Casting. - Dietary and Nutrition Adequate Nutrition. Nutritional Education. Nutritional Supplements. PHYSICAL EXAM - Gen Alert and awake Lying in bed No apparent distress Oriented to: person, time, and place - Skin No skin breakdown. Normacephalic - Eyes No abnormalities - ENMT No abnormalities - Neck [place] cervical collar is in place. - CVS RRR - Resp Clear to auscultation - Abd Soft - GI + bowel sounds Deferred - No abnormalities - Ext No significant edema - MSK 4/5 weakness in both lower extremities. - Neuro No focal deficits - Psych No abnormalities ASSESSMENT: Pt. is a 64 yo Right-handed male.On 05/13/2019 he was admitted to [facility] with d iagnosis SEVERE CERVICAL STENOSIS AND CORD COMPRESSION.His impairment category is Spinal Cord Dysfunc tion 04 - Other Non-traumatic Spinal Cord Dysfunction (04.130).Pre-morbidly, Pt. was independent/mod -I in Locomotion, Balance, Safety Awareness, Transfers Control, Sphincter Control, Social Cognition, Self-Care, Communication, and Endurance; and he had good Locomotion, Balance, Safety Awareness, Socia l Cognition, Transfers Control, Self-Care, Sphincter Control, Communication, and Endurance.Currently, he has deficits of Locomotion, Safety Awareness, Balance, Transfers Control, Self-Care, Communicatio n, and Endurance.Pt. is now referred to [facility] for acute in-patient rehabi litation in order to maximize patient's functional independence in activities of daily living, streng th, ROM, and mobility.- Rehab Goal Patient has realistic goal of being discharged at assistance level 6-Jett to reside at Home with Fam tara/Relatives. MDM/PLAN: - Physical Therapy Gait dysfunction - to improve, our physical therapists will perform initial evaluation of pt's statu s upon admission and devise an individualized program for Gait Training, and Wheel Chair mobility Inability to transfer - to improve, our physical therapists will perform initial evaluation of pt's status upon admission and devise an individualized program for Bed mobility Need for home safety evaluation - to improve, our physical therapists will perform initial evaluatio n of pt's status upon admission and devise an individualized program for Home Evaluation Need in caregiver upon discharge - to improve, our physical therapists will perform initial evaluati on of pt's status upon admission and devise an individualized program for Caregiver Training New precaution - to improve, our physical therapists will perform initial evaluation of pt's status upon admission and devise an individualized program for Patient precaution education Edema - to improve, our physical therapists will perform initial evaluation of pt's status upon admi ssion and devise an individualized program for Elevation Training, and Lymphedema Therapy Poor balance - to improve, our physical therapists will perform initial evaluation of pt's status up on admission and devise an individualized program for Balance Training Poor endurance - to improve, our physical therapists will perform initial evaluation of pt's status upon admission and devise an individualized program for Endurance Training Weakness - to improve, our physical therapists will perform initial evaluation of pt's status upon a dmission and devise an individualized program for Aquatic Therapy, Neuromuscular Reeducation, and Str engthening Achieving independence - to improve, our physical therapists will perform initial evaluation of pt's status upon admission and devise an individualized program for Community Reintegration Activities - Occupational Therapy ADL deficits - to improve, our occupation therapists will perform initial evaluation of pt's status upon admission and devise an individualized program for Bathing, Bed mobility, Community Reintegratio n, Cooking, Dressing, Eating, Fine Motor Skills, Grooming, Homemaking, Kitchen Mobility, Laundry, Pat ient Education, Safety Awareness, Splinting - Positioning, Transfers(Toilet, Tub, Shower), and Wheel Chair Management Need for home care music therapist - to improve, our occupation therapists will perform initial evaluation of pt's status upon admission and devise an individualized program for Caregiver Training Weakness - to improve, our occupation therapists will perform initial evaluation of pt's status upon admission and devise an individualized program for Aquatic Therapy, Balance, Endurance, UE ROM, and UE strengthening - Other See attached MAR (Medication Administration Record) - Diet Type Continue Regular - Diet - Liquid Texture Continue Regular - Tube Feed Continue N/A - Bladder care per protocol - Skin care per protocol - Diet - Solid Texture Continue Regular - Shower allowing shower FUNCTIONAL STATUS: UPDATED AT WEEKLY TEAM CONFERENCE - Bladder Same Bladder control device used: diaper Same Bladder medication used: NA Same accident frequency: 7-Ind - No accidents in the past 7 days - Bowel Same accident frequency: 7-Ind - No accidents in the past 7 days - Walking Same score based on distance walked: 0(N/A) Same score based on distance walked: 2(50-149ft) - Wheelchair Same score based on distance traveled: 0(N/A) FUNCTIONAL STATUS: - Self-Care A. Eating sup B. Grooming modA C. Bathing maxA D. Dressing - Upper Lev E. Dressing - Lower modA F. Toileting Lev - Sphincter Control G. Bladder control sup H. Bowel control Lev - Transfers Control I. Bed/Chair/Wheelchair maxA J. Toilet maxA K. Tub/Shower maxA - Locomotion L. Walk/Wheelchair (B) modA M. Stairs ADNO - Communication N. Comprehension (B) sup O. Expression (B) sup - Social Cognition P. Social Interaction Ind Q. Problem Solving sup R. Memory sup - Endurance Fair - Balance Poor - Safety Awareness Fair QI SCORES: - Self-Care A. Eating 06-Independent B. Oral hygiene 03-Partial/moderate assistance C. Toileting hygiene 02-Substantial/maximal assistance E. Shower/bathe self 03-Partial/moderate assistance F. Upper body dressing 03-Partial/moderate assistance G. Lower body dressing 03-Partial/moderate assistance H. Putting on/taking off footwear 03-Partial/moderate assistance - Mobility A. Roll left and right 03-Partial/moderate assistance B. Sit to lying 03-Partial/moderate assistance C. Lying to sitting on side of bed 03-Partial/moderate assistance D. Sit to stand 03-Partial/moderate assistance E. Chair/fex-da-lybon transfer 03-Partial/moderate assistance F. Toilet transfer 03-Partial/moderate assistance G. Car transfer 88-Not attempted due to medical condition or safety concerns I. Walk 10 feet 03-Partial/moderate assistance J. Walk 50 feet with two turns 02-Substantial/maximal assistance K. Walk 150 feet 88-Not attempted due to medical condition or safety concerns L. Walking 10 feet on uneven surfaces 88-Not attempted due to medical condition or safety concerns M. 1 step (curb) 88-Not attempted due to medical condition or safety concerns N. 4 steps 88-Not attempted due to medical condition or safety concerns O. 12 steps 88-Not attempted due to medical condition or safety concerns P. Picking up object 06-Independent R. Wheel 50 feet with two turns 88-Not attempted due to medical condition or safety concerns S. Wheel 150 feet 88-Not attempted due to medical condition or safety concerns - Bladder and Bowel Bladder continence 3-Incontinent daily Bowel continence 2-Frequently incontinent - Endurance Fair - Balance Fair - Safety Awareness Fair [facility] DEFICITS: Mobility, Endurance, Balance, Safety Awareness, and Self-Care SIGNATURE PANEL: (CDT)
[2019-05-20] MEDS: CIPROFLOXACIN HCL 500 MG TAB PO SCH (19:19)
[2019-05-20] MEDS ORDERED: PANTOPRAZOLE 40MG TABLET PO ONE (19:28)
[2019-05-20] MEDS ORDERED: ONDANSETRON 4 MG (ODT) TAB PO PRN (19:28)
[2019-05-20] MEDS: MIRTAZAPINE 15 MG TAB PO SCH (20:50)
[2019-05-20] MEDS: ATORVASTATIN 40 MG TAB PO SCH (20:50)
[2019-05-21] MEDS: HYDROCODONE/APAP 10/325 TAB PO PRN ×4 (01:58→17:56)
[2019-05-21] MEDS: PANTOPRAZOLE 40MG TABLET PO SCH (06:50)
[2019-05-21] MEDS: ALEVE 220 MG PO SCH ×2 (08:00→19:22)
[2019-05-21] MEDS: PROMOD 30 ML DOSE PO SCH ×2 (08:00→19:22)
[2019-05-21] MEDS: KETOROLAC OPTHALMIC 5 ML BOT OPTH SCH (09:23)
[2019-05-21] MEDS: FERROUS SULFATE 325 MG TAB PO SCH (09:24)
[2019-05-21] MEDS: CRANBERRY FRUIT EXTRACT 200 MG CAP PO SCH ×2 (09:24→19:21)
[2019-05-21] MEDS: VITAMIN B COMPLEX 1 CAP PO SCH (09:24)
[2019-05-21] MEDS: APIXABAN 2.5 MG TABLET PO SCH ×2 (09:24→19:21)
[2019-05-21] MEDS: FE SULF/FA/VIT B COMP & C TAB PO SCH (09:24)
[2019-05-21] MEDS: CIPROFLOXACIN HCL 500 MG TAB PO SCH (09:24)
[2019-05-21] MEDS: SERTRALINE HCL 100 MG TAB PO SCH (09:24)
[2019-05-21] MEDS: GABAPENTIN 300 MG CAP PO SCH ×2 (09:24→19:22)
[2019-05-21] MEDS: ERYTHROMYCIN 1 APPL/1 GM TUBE EACH EYE SCH ×2 (09:25→19:22)
[2019-05-21] MEDS: methocarbamoL 500 MG TAB PO PRN ×2 (09:30→19:21)
[2019-05-21] MEDS: LIDOCAINE 4% PATCH TOP SCH (09:53)
--- NOTE | 2019-05-21 12:49 | RAD REPORT ---
EXAM DESCRIPTION: RAD - Barium Swallow Modified - 05/21/2019 12:38 pm CLINICAL HISTORY: R/O aspirations; coughing with meals/meds Dysphagia COMPARISON: No comparisons TECHNIQUE: The patient was given liquid, semi-solid and solid forms of barium. Lateral view fluorosc opic imaging was performed in conjunction with speech pathology service. 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
--- NOTE | 2019-05-21 17:38 | R.PN ---
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 Pt denied any depression. Functional activities and transfers done with moderate to maximum assistance. Ambulated 90', 170', 80', 170', 250' and 250' with contact guard assistance using rolling walker. Up and down 9 steps with contact guard assistance. VITAL SIGNS Temperature: 97.3 SBP/DBP: 109/59 Pulse: 80 Resp: 16 MEDICATION ALLERGIES: No Known Drug Allergies (NKDA) ENVIRONMENTAL ALLERGIES: - Substance Allergies None Known - Other Allergies None Known NURSING: - Shower allowing shower - Bladder care per protocol - Skin care per protocol ACTIVITIES OOB only with supervision THERAPIES: - Orthotics/Prosthetics Orthotic Evaluation. Splinting/Casting. - Dietary and Nutrition Adequate Nutrition. Nutritional Education. Nutritional Supplements. PHYSICAL EXAM - Gen Alert and awake Lying in bed No apparent distress Oriented to: person, time, and place - Skin No skin breakdown. Normacephalic - Eyes No abnormalities - ENMT No abnormalities - Neck [place] cervical collar is in place. - CVS RRR - Resp Clear to auscultation - Abd Soft - GI + bowel sounds Deferred - No abnormalities - Ext No significant edema - MSK 4/5 weakness in both lower extremities. - Neuro No focal deficits - Psych No abnormalities ASSESSMENT: Pt. is a 64 yo Right-handed male.On 05/13/2019 he was admitted to [facility] hospital with d iagnosis SEVERE CERVICAL STENOSIS AND CORD COMPRESSION.His impairment category is Spinal Cord Dysfunc tion 04 - Other Non-traumatic Spinal Cord Dysfunction (04.130).Pre-morbidly, Pt. was independent/mod -I in Locomotion, Balance, Safety Awareness, Transfers Control, Sphincter Control, Social Cognition, Self-Care, Communication, and Endurance; and he had good Locomotion, Balance, Safety Awareness, Socia l Cognition, Transfers Control, Self-Care, Sphincter Control, Communication, and Endurance.Currently, he has deficits of Locomotion, Safety Awareness, Balance, Transfers Control, Self-Care, Communicatio n, and Endurance.Pt. is now referred to [facility] for acute in-patient rehabi litation in order to maximize patient's functional independence in activities of daily living, streng th, ROM, and mobility.- Rehab Goal Patient has realistic goal of being discharged at assistance level 6-Jett to reside at Home with Fam tara/Relatives. MDM/PLAN: - Physical Therapy Gait dysfunction - to improve, our physical therapists will perform initial evaluation of pt's statu s upon admission and devise an individualized program for Gait Training, and Wheel Chair mobility Inability to transfer - to improve, our physical therapists will perform initial evaluation of pt's status upon admission and devise an individualized program for Bed mobility Need for home safety evaluation - to improve, our physical therapists will perform initial evaluatio n of pt's status upon admission and devise an individualized program for Home Evaluation Need in caregiver upon discharge - to improve, our physical therapists will perform initial evaluati on of pt's status upon admission and devise an individualized program for Caregiver Training New precaution - to improve, our physical therapists will perform initial evaluation of pt's status upon admission and devise an individualized program for Patient precaution education Edema - to improve, our physical therapists will perform initial evaluation of pt's status upon admi ssion and devise an individualized program for Elevation Training, and Lymphedema Therapy Poor balance - to improve, our physical therapists will perform initial evaluation of pt's status up on admission and devise an individualized program for Balance Training Poor endurance - to improve, our physical therapists will perform initial evaluation of pt's status upon admission and devise an individualized program for Endurance Training Weakness - to improve, our physical therapists will perform initial evaluation of pt's status upon a dmission and devise an individualized program for Aquatic Therapy, Neuromuscular Reeducation, and Str engthening Achieving independence - to improve, our physical therapists will perform initial evaluation of pt's status upon admission and devise an individualized program for Community Reintegration Activities - Occupational Therapy ADL deficits - to improve, our occupation therapists will perform initial evaluation of pt's status upon admission and devise an individualized program for Bathing, Bed mobility, Community Reintegratio n, Cooking, Dressing, Eating, Fine Motor Skills, Grooming, Homemaking, Kitchen Mobility, Laundry, Pat ient Education, Safety Awareness, Splinting - Positioning, Transfers(Toilet, Tub, Shower), and Wheel Chair Management Need for medicare biller - to improve, our occupation therapists will perform initial evaluation of pt's status upon admission and devise an individualized program for Caregiver Training Weakness - to improve, our occupation therapists will perform initial evaluation of pt's status upon admission and devise an individualized program for Aquatic Therapy, Balance, Endurance, UE ROM, and UE strengthening - Other See attached MAR (Medication Administration Record) - Diet Type Continue Regular - Diet - Liquid Texture Continue Regular - Tube Feed Continue N/A - Bladder care per protocol - Skin care per protocol - Diet - Solid Texture Continue Regular - Shower allowing shower FUNCTIONAL STATUS: UPDATED AT WEEKLY TEAM CONFERENCE - Bladder Same Bladder control device used: diaper Same Bladder medication used: NA Same accident frequency: 7-Ind - No accidents in the past 7 days - Bowel Same accident frequency: 7-Ind - No accidents in the past 7 days - Walking Same score based on distance walked: 0(N/A) Same score based on distance walked: 2(50-149ft) - Wheelchair Same score based on distance traveled: 0(N/A) FUNCTIONAL STATUS: - Self-Care A. Eating sup B. Grooming modA C. Bathing maxA D. Dressing - Upper Lev E. Dressing - Lower modA F. Toileting Lev - Sphincter Control G. Bladder control sup H. Bowel control Lev - Transfers Control I. Bed/Chair/Wheelchair maxA J. Toilet maxA K. Tub/Shower maxA - Locomotion L. Walk/Wheelchair (B) modA M. Stairs ADNO - Communication N. Comprehension (B) sup O. Expression (B) sup - Social Cognition P. Social Interaction Ind Q. Problem Solving sup R. Memory sup - Endurance Fair - Balance Poor - Safety Awareness Fair QI SCORES: - Self-Care A. Eating 06-Independent B. Oral hygiene 03-Partial/moderate assistance C. Toileting hygiene 02-Substantial/maximal assistance E. Shower/bathe self 03-Partial/moderate assistance F. Upper body dressing 03-Partial/moderate assistance G. Lower body dressing 03-Partial/moderate assistance H. Putting on/taking off footwear 03-Partial/moderate assistance - Mobility A. Roll left and right 03-Partial/moderate assistance B. Sit to lying 03-Partial/moderate assistance C. Lying to sitting on side of bed 03-Partial/moderate assistance D. Sit to stand 03-Partial/moderate assistance E. Chair/[id number] transfer 03-Partial/moderate assistance F. Toilet transfer 03-Partial/moderate assistance G. Car transfer 88-Not attempted due to medical condition or safety concerns I. Walk 10 feet 03-Partial/moderate assistance J. Walk 50 feet with two turns 02-Substantial/maximal assistance K. Walk 150 feet 88-Not attempted due to medical condition or safety concerns L. Walking 10 feet on uneven surfaces 88-Not attempted due to medical condition or safety concerns M. 1 step (curb) 88-Not attempted due to medical condition or safety concerns N. 4 steps 88-Not attempted due to medical condition or safety concerns O. 12 steps 88-Not attempted due to medical condition or safety concerns P. Picking up object 06-Independent R. Wheel 50 feet with two turns 88-Not attempted due to medical condition or safety concerns S. Wheel 150 feet 88-Not attempted due to medical condition or safety concerns - Bladder and Bowel Bladder continence 3-Incontinent daily Bowel continence 2-Frequently incontinent - Endurance Fair - Balance Fair - Safety Awareness Fair [facility] DEFICITS: Mobility, Endurance, Balance, Safety Awareness, and Self-Care SIGNATURE PANEL: (CDT)
[2019-05-21] MEDS: DOCUSATE NA/SENNA CONC 1 TAB PO PRN (19:20)
[2019-05-21] MEDS: SMZ./TMP. 800/160 MG TABLET PO SCH (19:20)
[2019-05-21] MEDS: ATORVASTATIN 40 MG TAB PO SCH (19:21)
[2019-05-21] MEDS: MIRTAZAPINE 15 MG TAB PO SCH (19:21)
[2019-05-22] MEDS: HYDROCODONE/APAP 10/325 TAB PO PRN ×4 (06:30→21:50)
[2019-05-22] MEDS: PANTOPRAZOLE 40MG TABLET PO SCH (06:32)
[2019-05-22] MEDS: LIDOCAINE 4% PATCH TOP SCH (06:33)
[2019-05-22 06:56] LABS: Absolute Lymphocytes (CBC) 2.6 K/uL (0.7-4.9); Basophils % 0.9 % (0-1.3); Hematocrit 31.8 % (39.6-49.0); Lymphocytes % 20.9 % (15.3-44.8); MPV 8.3 fL (7.6-11.3); RBC Red Blood Cell Count 3.43 M/uL (4.33-5.43)
[2019-05-22 07:30] LABS: Albumin 2.8 g/dL (3.4-5.0); BUN Blood Urea Nitrogen 18 mg/dL (7-18); Bicarbonate 25 mmol/L (21-32); Glucose Level 89 mg/dL (74-106); Magnesium 2.1 mg/dL (1.8-2.4); Prealbumin 12.4 mg/dL (20-40); Sodium Level 139 mmol/L (136-145)
[2019-05-22] MEDS: PROMOD 30 ML DOSE PO SCH ×2 (08:00→20:00)
[2019-05-22] MEDS: ALEVE 220 MG PO SCH (08:00)
[2019-05-22] MEDS: SMZ./TMP. 800/160 MG TABLET PO SCH ×2 (08:46→20:29)
[2019-05-22] MEDS: ERYTHROMYCIN 1 APPL/1 GM TUBE EACH EYE SCH ×2 (08:46→20:30)
[2019-05-22] MEDS: FERROUS SULFATE 325 MG TAB PO SCH (08:46)
[2019-05-22] MEDS: APIXABAN 2.5 MG TABLET PO SCH ×2 (08:46→20:30)
[2019-05-22] MEDS: KETOROLAC OPTHALMIC 5 ML BOT OPTH SCH (08:46)
[2019-05-22] MEDS: FE SULF/FA/VIT B COMP & C TAB PO SCH (08:47)
[2019-05-22] MEDS: VITAMIN B COMPLEX 1 CAP PO SCH (08:47)
[2019-05-22] MEDS: SERTRALINE HCL 100 MG TAB PO SCH (08:47)
[2019-05-22] MEDS: GABAPENTIN 300 MG CAP PO SCH ×2 (08:47→20:29)
[2019-05-22] MEDS: CRANBERRY FRUIT EXTRACT 200 MG CAP PO SCH ×2 (08:47→20:30)
--- NOTE | 2019-05-22 09:55 | P.RH.PN ---
Estimated Length of Stay: 17 Expected Discharge Date: 06/01/19 Discharge Disposition Plan: Home Family Support: Yes Skilled Nursing Goal: Mobility, Transfers, Self Care Vital Signs: Last Vital Signs Temp 97.3 F 05/22/19 08:00 Pulse 69 05/22/19 08:00 Resp 14 05/22/19 08:00 BP 117/63 05/22/19 08:00 Pulse Ox 95 05/22/19 08:00 Laboratory: Laboratory Last Values WBC 12.4 K/uL (4.3-10.9) H 05/22/19 06:10 RBC 3.43 M/uL (4.33-5.43) L 05/22/19 06:10 Hgb 10.6 g/dL (13.6-17.9) L 05/22/19 06:10 Hct 31.8 % (39.6-49.0) L 05/22/19 06:10 MCV 92.7 fL (80-100) 05/22/19 06:10 MCH 31.0 pg (27.0-35.0) 05/22/19 06:10 MCHC 33.4 g/dL (32.0-36.0) 05/22/19 06:10 RDW 13.9 % (12.1-15.2) 05/22/19 06:10 Plt Count 334 K/uL (152-406) D 05/22/19 06:10 MPV 8.3 fL (7.6-11.3) 05/22/19 06:10 Neutrophils % 64.0 % (41.7-73.7) 05/22/19 06:10 Lymphocytes % 20.9 % (15.3-44.8) 05/22/19 06:10 Monocytes % 10.4 % (3.3-12.3) 05/22/19 06:10 Eosinophils % 3.8 % (0-4.4) 05/22/19 06:10 Basophils % 0.9 % (0-1.3) 05/22/19 06:10 Absolute Neutrophils 7.9 K/uL (1.8-8.0) 05/22/19 06:10 Absolute Lymphocytes 2.6 K/uL (0.7-4.9) 05/22/19 06:10 Absolute Monocytes 1.3 K/uL (0.1-1.3) 05/22/19 06:10 Absolute Eosinophils 0.5 K/uL (0-0.5) 05/22/19 06:10 Absolute Basophils 0.1 K/uL (0-0.5) 05/22/19 06:10 Sodium 139 mmol/L (136-145) 05/22/19 06:10 Potassium 4.0 mmol/L (3.5-5.1) 05/22/19 06:10 Chloride 108 mmol/L (98-107) H 05/22/19 06:10 Carbon Dioxide 25 mmol/L (21-32) 05/22/19 06:10 BUN 18 mg/dL (7-18) 05/22/19 06:10 Creatinine 0.79 mg/dL (0.55-1.3) 05/22/19 06:10 Estimated GFR > 90 mL/min (=/>90) 05/22/19 06:10 Glucose 89 mg/dL (74-106) 05/22/19 06:10 Calcium 8.7 mg/dL (8.5-10.1) 05/22/19 06:10 Magnesium 2.1 mg/dL (1.8-2.4) 05/22/19 06:10 Albumin 2.8 g/dL (3.4-5.0) L 05/22/19 06:10 Prealbumin 12.4 mg/dL (20-40) L 05/22/19 06:10 Urine Color Yellow 05/17/19 17:35 Urine Appearance Turbid 05/17/19 17:35 Urine pH 6.0 (5.0-7.0) 05/17/19 17:35 Ur Specific [place] 1.015 (1.005-1.030) 05/17/19 17:35 Glucose (UA)(Auto) Negative (NEG) 05/17/19 17:35 Urine Ketones Negative (NEG) 05/17/19 17:35 Urine Blood 3+ (NEG) H 05/17/19 17:35 Urine Nitrite Negative (NEG) 05/17/19 17:35 Urine Bilirubin Negative (NEG) 05/17/19 17:35 Urine Urobilinogen 2.0 mg/dL (0.2-1.0) H 05/17/19 17:35 Ur Leukocyte Esterase 3+ (NEG) H 05/17/19 17:35 Urine RBC <5 /HPF (NONE SEEN) 05/17/19 17:35 Urine WBC Tntc /HPF (<5) H 05/17/19 17:35 Ur Squamous Epith Cells <5 /HPF (NONE SEEN) 05/17/19 17:35 Urine Bacteria Loaded /HPF (NONE SEEN) H 05/17/19 17:35 Urine Culture Reflexed Reflexed 05/17/19 17:35 Urine Total Protein 1+ (NEG) H 05/17/19 17:35 Weight: 122 lb Wound Present: Yes Negative Pressure Wound Therapy Present: No Physician Update: Labs reviewed. His WBCs are mildly elevated but stable over 5 days. His prealbumin is sligltly low and he is on hemocyte plus. He has a UTI and no sense of when he has to urinate. He will be placed on timed voiding. He has moderate weakness and spasticity in his hands and arms. He is minimum assistance with transfers. He is standby to contact guard ambulating 250'. Up and down 9 stairs with standby assistance. He is on nectar thick liquids due to dysphagia. Speech Therapy Update: Patient obtained a 22/30 on the MOCA indicating a mild cognitive impairment characterized by impaired visuospatial skills, reduced attention and calculation, STM deficits, and decreased mental flexibility. Patient had an MBS study which revealed mild-moderate oropharyngeal dysphagia. Patient placed on a mechanical soft diet with nectar thickened liquids. Summary: Patient's care plan and fdc goals have been reviewed and revised as necessary. Please see the Rehabilitation Signature page for all necessary signatures.
--- NOTE | 2019-05-22 10:26 | FAST ---
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 Srinivasan Carey M.D. 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 EATING: EATING - STEP 1: Does the patient complete the activity by him/herself with no assistance (physical, verbal/nonverbal cueing, setup/clean-up)? No. EATING - STEP 2: Does the patient need only setup/clean-up assistance from one helper? No. EATING - STEP 3: Does the patient need only verbal/nonverbal cueing or touching/steadying/contact guard assistance fro m one helper? Yes. 1. [id number] ADMISSION PERFORMANCE: Supervision or touching assistance CODE: 04 ORAL HYGIENE: ORAL HYGIENE - STEP 1: Does the patient complete the activity by him/herself with no assistance (physical, verbal/nonverbal cueing, setup/clean-up)? No. ORAL HYGIENE - STEP 2: Does the patient need only setup/clean-up assistance from one helper? No. ORAL HYGIENE - STEP 3: Does the patient need only verbal/nonverbal cueing or touching/steadying/contact guard assistance fro m one helper? Yes. 1. [id number] ADMISSION PERFORMANCE: Supervision or touching assistance CODE: 04 TOILETING HYGIENE: TOILETING HYGIENE - STEP 1: Does the patient complete the activity by him/herself with no assistance (physical, verbal/nonverbal cueing, setup/clean-up)? No. TOILETING HYGIENE - STEP 2: Does the patient need only setup/clean-up assistance from one helper? No. TOILETING HYGIENE - STEP 3: Does the patient need only verbal/nonverbal cueing or touching/steadying/contact guard assistance fro m one helper? No. TOILETING HYGIENE - STEP 4: Does the patient need physical assistance - for example lifting or trunk support from one helper - wi th the helper providing less than half of the effort? Yes. 1. [id number] ADMISSION PERFORMANCE: Partial/moderate assistance CODE: 03 BATHING: Not assessed/no information CODE: - DRESSING - UPPER BODY: Not assessed/no information CODE: - DRESSING - LOWER BODY: Not assessed/no information CODE: - PUTTING ON/TAKING OFF FOOTWEAR: Not assessed/no information CODE: - ROLL LEFT AND RIGHT: Not assessed/no information CODE: - SIT TO LYING: Not assessed/no information CODE: - LYING TO SITTING: Not assessed/no information CODE: - SIT TO STAND: SIT TO STAND - STEP 1: Does the patient complete the activity by him/herself with no assistance (physical, verbal/nonverbal cueing, setup/clean-up)? No. SIT TO STAND - STEP 2: Does the patient need only setup/clean-up assistance from one helper? No. SIT TO STAND - STEP 3: Does the patient need only verbal/nonverbal cueing or touching/steadying/contact guard assistance fro m one helper? Yes. 1. [id number] ADMISSION PERFORMANCE: Supervision or touching assistance CODE: 04 TRANSFERS: BED, CHAIR: CHAIR/[id number] TRANSFER - STEP 1: Does the patient complete the activity by him/herself with no assistance (physical, verbal/nonverbal cueing, setup/clean-up)? No. CHAIR/[id number] TRANSFER - STEP 2: Does the patient need only setup/clean-up assistance from one helper? No. CHAIR/[id number] TRANSFER - STEP 3: Does the patient need only verbal/nonverbal cueing or touching/steadying/contact guard assistance fro m one helper? Yes. 1. [id number] ADMISSION PERFORMANCE: Supervision or touching assistance CODE: 04 TRANSFER TOILET: TOILET TRANSFER - STEP 1: Does the patient complete the activity by him/herself with no assistance (physical, verbal/nonverbal cueing, setup/clean-up)? No. TOILET TRANSFER - STEP 2: Does the patient need only setup/clean-up assistance from one helper? No. TOILET TRANSFER - STEP 3: Does the patient need only verbal/nonverbal cueing or touching/steadying/contact guard assistance fro m one helper? No. TOILET TRANSFER - STEP 4: Does the patient need physical assistance - for example lifting or trunk support from one helper - wi the helper providing less than half of the effort? Yes. 1. [id number] ADMISSION PERFORMANCE: Partial/moderate assistance CODE: 03 TRANSFERS: CAR: Not assessed/no information CODE: - WALK 10 FEET: Not assessed/no information CODE: - 1 STEP (CURB): Not assessed/no information CODE: - PICKING UP OBJECT: Not assessed/no information CODE: - DOES THE PATIENT USE A WHEELCHAIR/SCOOTER? CODE: EXPR WHEEL 50 FEET WITH TWO TURNS: Not assessed/no information CODE: - INDICATE THE TYPE OF WHEELCHAIR/SCOOTER USED: CODE: EXPR WHEEL 150 FEET: Not assessed/no information CODE: - INDICATE THE TYPE OF WHEELCHAIR/SCOOTER USED: CODE: EXPR BLADDER AND BOWEL: H350. BLADDER CONTINENCE (3-DAY ASSESSMENT PERIOD): Incontinent less than daily (e.g., once or twice during the 3-day assessment period) CODE: 2 H400. BOWEL CONTINENCE (3-DAY ASSESSMENT PERIOD): Occasionally incontinent (one episode of bowel incontinence) CODE: 1 SIGNATURE PANEL: The following modified sections: 1. [id number] Admission Performance, 1. [id number] Admission Performance, 1. [id number] Admission Performance, 1. [id number] Admission Performance, 1. [id number] Admission Performance, 1. [id number] Admission Performance, Code, H350. Bladder Continence (3-day assessment period), H400. Michael wel Continence (3-day assessment period), H350. Bladder Continence (3-day assessment period), H400. B owel Continence (3-day assessment period) were [electronically] signed by Amrit Faust on SunMay 21 10:26:28 T-0500 (Central Daylight Time)
--- NOTE | 2019-05-22 14:56 | FAST ---
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 Srinivasan Carey M.D. 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 ROLL LEFT AND RIGHT: ROLL LEFT AND RIGHT - STEP 1: Does the patient complete the activity by him/herself with no assistance (physical, verbal/nonverbal cueing, setup/clean-up)? No. ROLL LEFT AND RIGHT - STEP 2: Does the patient need only setup/clean-up assistance from one helper? Yes. 1. [id number] ADMISSION PERFORMANCE: Setup or clean-up assistance CODE: 05 SIT TO LYING: SIT TO LYING - STEP 1: Does the patient complete the activity by him/herself with no assistance (physical, verbal/nonverbal cueing, setup/clean-up)? No. SIT TO LYING - STEP 2: Does the patient need only setup/clean-up assistance from one helper? Yes. 1. [id number] ADMISSION PERFORMANCE: Setup or clean-up assistance CODE: 05 LYING TO SITTING: LYING TO SITTING ON SIDE OF BED - STEP 1: Does the patient complete the activity by him/herself with no assistance (physical, verbal/nonverbal cueing, setup/clean-up)? No. LYING TO SITTING ON SIDE OF BED - STEP 2: Does the patient need only setup/clean-up assistance from one helper? Yes. 1. [id number] ADMISSION PERFORMANCE: Setup or clean-up assistance CODE: 05 SIT TO STAND: SIT TO STAND - STEP 1: Does the patient complete the activity by him/herself with no assistance (physical, verbal/nonverbal cueing, setup/clean-up)? No. SIT TO STAND - STEP 2: Does the patient need only setup/clean-up assistance from one helper? Yes. 1. [id number] ADMISSION PERFORMANCE: Setup or clean-up assistance CODE: 05 TRANSFERS: BED, CHAIR: CHAIR/[id number] TRANSFER - STEP 1: Does the patient complete the activity by him/herself with no assistance (physical, verbal/nonverbal cueing, setup/clean-up)? No. CHAIR/[id number] TRANSFER - STEP 2: Does the patient need only setup/clean-up assistance from one helper? Yes. 1. [id number] ADMISSION PERFORMANCE: Setup or clean-up assistance CODE: 05 TRANSFER TOILET: TOILET TRANSFER - STEP 1: Does the patient complete the activity by him/herself with no assistance (physical, verbal/nonverbal cueing, setup/clean-up)? No. TOILET TRANSFER - STEP 2: Does the patient need only setup/clean-up assistance from one helper? Yes. 1. [id number] ADMISSION PERFORMANCE: Setup or clean-up assistance CODE: 05 TRANSFERS: CAR: Not attempted due to environmental limitations (e.g., lack of equipment, weather constraints) CODE: 10 WALK 10 FEET: WALK 10 FEET - STEP 1: Does the patient complete the activity by him/herself with no assistance (physical, verbal/nonverbal cueing, setup/clean-up)? No. WALK 10 FEET - STEP 2: Does the patient need only setup/clean-up assistance from one helper? No. WALK 10 FEET - STEP 3: Does the patient need only verbal/nonverbal cueing or touching/steadying/contact guard assistance fro m one helper? Yes. 1. [id number] ADMISSION PERFORMANCE: Supervision or touching assistance CODE: WALK 50 FEET: WALK 50 FEET - STEP 1: Does the patient complete the activity by him/herself with no assistance (physical, verbal/nonverbal cueing, setup/clean-up)? No. WALK 50 FEET - STEP 2: Does the patient need only setup/clean-up assistance from one helper? No. WALK 50 FEET - STEP 3: Does the patient need only verbal/nonverbal cueing or touching/steadying/contact guard assistance fro m one helper? Yes. 1. [id number] ADMISSION PERFORMANCE: Supervision or touching assistance CODE: WALK 150 FEET: WALK 150 FEET - STEP 1: Does the patient complete the activity by him/herself with no assistance (physical, verbal/nonverbal cueing, setup/clean-up)? No. WALK 150 FEET - STEP 2: Does the patient need only setup/clean-up assistance from one helper? No. WALK 150 FEET - STEP 3: Does the patient need only verbal/nonverbal cueing or touching/steadying/contact guard assistance fro m one helper? Yes. 1. [id number] ADMISSION PERFORMANCE: Supervision or touching assistance CODE: 04 WALK 10 FEET UNEVEN: Not attempted due to medical condition or safety concerns CODE: 88 1 STEP (CURB): 1 STEP CURB - STEP 1: Does the patient complete the activity by him/herself with no assistance (physical, verbal/nonverbal cueing, setup/clean-up)? No. 1 STEP CURB - STEP 2: Does the patient need only setup/clean-up assistance from one helper? No. 1 STEP CURB - STEP 3: Does the patient need only verbal/nonverbal cueing or touching/steadying/contact guard assistance fro m one helper? Yes. 1. [id number] ADMISSION PERFORMANCE: Supervision or touching assistance CODE: 04 4 STEPS: 4 STEPS - STEP 1: Does the patient complete the activity by him/herself with no assistance (physical, verbal/nonverbal cueing, setup/clean-up)? No. 4 STEPS - STEP 2: Does the patient need only setup/clean-up assistance from one helper? No. 4 STEPS - STEP 3: Does the patient need only verbal/nonverbal cueing or touching/steadying/contact guard assistance fro m one helper? Yes. 1. [id number] ADMISSION PERFORMANCE: Supervision or touching assistance CODE: 04 12 STEPS: Not attempted due to medical condition or safety concerns CODE: 88 PICKING UP OBJECT: Not attempted due to medical condition or safety concerns CODE: 88 DOES THE PATIENT USE A WHEELCHAIR/SCOOTER? Q1. DOES THE PATIENT USE A WHEELCHAIR/SCOOTER?: Yes CODE: 1 WHEEL 50 FEET WITH TWO TURNS: WHEEL 50 FEET WITH TWO TURNS - STEP 1: Does the patient complete the activity by him/herself with no assistance (physical, verbal/nonverbal cueing, setup/clean-up)? No. WHEEL 50 FEET WITH TWO TURNS - STEP 2: Does the patient need only setup/clean-up assistance from one helper? Yes. 1. [id number] ADMISSION PERFORMANCE: Setup or clean-up assistance CODE: 05 INDICATE THE TYPE OF WHEELCHAIR/SCOOTER USED: RR1. INDICATE THE TYPE OF WHEELCHAIR/SCOOTER USED.: Manual CODE: 1 WHEEL 150 FEET: WHEEL 150 FEET - STEP 1: Does the patient complete the activity by him/herself with no assistance (physical, verbal/nonverbal cueing, setup/clean-up)? No. WHEEL 150 FEET - STEP 2: Does the patient need only setup/clean-up assistance from one helper? Yes. 1. [id number] ADMISSION PERFORMANCE: Setup or clean-up assistance CODE: 05 INDICATE THE TYPE OF WHEELCHAIR/SCOOTER USED: SS1. INDICATE THE TYPE OF WHEELCHAIR/SCOOTER USED.: Manual CODE: 1 BLADDER AND BOWEL: CODE: EXPR CODE: EXPR SIGNATURE PANEL: The following modified sections: 1. [id number] Admission Performance, 1. [id number] Admission Performance, 1. [id number] Admission Performance, 1. [id number] Admission Performance, 1. TH8840X Admission Performance, 1. QK4561I Admission Performance, 1. FM5297V Admission Performance, 1. [id number] Admission Performance , 1. [id number] Admission Performance, 1. [id number] Admission Performance, 1. [id number] Admission Performanc e, Q1. Does the patient use a wheelchair/scooter?, 1. [id number] Admission Performance, 1. [id number] Admis prachi Performance, RR1. Indicate the type of wheelchair/scooter used., 1. [id number] Admission Performanc e, Code, SS1. Indicate the type of wheelchair/scooter used. were [electronically] signed by Elpidio arboleda PTA on SunMay 22 2019 14:56:01 GMT-0500 (Central Daylight Time)
[2019-05-22] MEDS: ATORVASTATIN 40 MG TAB PO SCH (20:29)
[2019-05-22] MEDS: MIRTAZAPINE 15 MG TAB PO SCH (20:30)
[2019-05-23] MEDS: HYDROCODONE/APAP 10/325 TAB PO PRN ×5 (04:36→22:48)
[2019-05-23] MEDS: ERYTHROMYCIN 1 APPL/1 GM TUBE EACH EYE SCH ×2 (08:00→20:35)
[2019-05-23] MEDS: KETOROLAC OPTHALMIC 5 ML BOT OPTH SCH (08:00)
[2019-05-23] MEDS: PROMOD 30 ML DOSE PO SCH ×2 (08:00→20:00)
[2019-05-23] MEDS: FERROUS SULFATE 325 MG TAB PO SCH (08:32)
[2019-05-23] MEDS: APIXABAN 2.5 MG TABLET PO SCH ×2 (08:32→20:37)
[2019-05-23] MEDS: FE SULF/FA/VIT B COMP & C TAB PO SCH (08:32)
[2019-05-23] MEDS: VITAMIN B COMPLEX 1 CAP PO SCH (08:32)
[2019-05-23] MEDS: SERTRALINE HCL 100 MG TAB PO SCH (08:32)
[2019-05-23] MEDS: GABAPENTIN 300 MG CAP PO SCH ×2 (08:32→20:37)
[2019-05-23] MEDS: CRANBERRY FRUIT EXTRACT 200 MG CAP PO SCH ×2 (08:32→20:36)
[2019-05-23] MEDS: SMZ./TMP. 800/160 MG TABLET PO SCH ×2 (08:33→20:37)
[2019-05-23] MEDS: PANTOPRAZOLE 40MG TABLET PO SCH (08:33)
[2019-05-23] MEDS: LIDOCAINE 4% PATCH TOP SCH (11:13)
--- NOTE | 2019-05-23 14:17 | FAST ---
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 Srinivasan Carey M.D. 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 EATING: EATING - STEP 1: Does the patient complete the activity by him/herself with no assistance (physical, verbal/nonverbal cueing, setup/clean-up)? No. EATING - STEP 2: Does the patient need only setup/clean-up assistance from one helper? No. EATING - STEP 3: Does the patient need only verbal/nonverbal cueing or touching/steadying/contact guard assistance fro m one helper? Yes. 1. [id number] ADMISSION PERFORMANCE: Supervision or touching assistance CODE: 04 ORAL HYGIENE: ORAL HYGIENE - STEP 1: Does the patient complete the activity by him/herself with no assistance (physical, verbal/nonverbal cueing, setup/clean-up)? No. ORAL HYGIENE - STEP 2: Does the patient need only setup/clean-up assistance from one helper? Yes. 1. [id number] ADMISSION PERFORMANCE: Setup or clean-up assistance CODE: 05 TOILETING HYGIENE: TOILETING HYGIENE - STEP 1: Does the patient complete the activity by him/herself with no assistance (physical, verbal/nonverbal cueing, setup/clean-up)? No. TOILETING HYGIENE - STEP 2: Does the patient need only setup/clean-up assistance from one helper? No. TOILETING HYGIENE - STEP 3: Does the patient need only verbal/nonverbal cueing or touching/steadying/contact guard assistance fro m one helper? No. TOILETING HYGIENE - STEP 4: Does the patient need physical assistance - for example lifting or trunk support from one helper - wi th the helper providing less than half of the effort? Yes. 1. [id number] ADMISSION PERFORMANCE: Partial/moderate assistance CODE: 03 BATHING: Not assessed/no information CODE: - DRESSING - UPPER BODY: DRESSING - UPPER BODY - STEP 1: Does the patient complete the activity by him/herself with no assistance (physical, verbal/nonverbal cueing, setup/clean-up)? No. DRESSING - UPPER BODY - STEP 2: Does the patient need only setup/clean-up assistance from one helper? No. DRESSING - UPPER BODY - STEP 3: Does the patient need only verbal/nonverbal cueing or touching/steadying/contact guard assistance fro m one helper? No. DRESSING - UPPER BODY - STEP 4: Does the patient need physical assistance - for example lifting or trunk support from one helper - wi th the helper providing less than half of the effort? Yes. 1. [id number] ADMISSION PERFORMANCE: Partial/moderate assistance CODE: 03 DRESSING - LOWER BODY: DRESSING - LOWER BODY - STEP 1: Does the patient complete the activity by him/herself with no assistance (physical, verbal/nonverbal cueing, setup/clean-up)? No. DRESSING - LOWER BODY - STEP 2: Does the patient need only setup/clean-up assistance from one helper? No. DRESSING - LOWER BODY - STEP 3: Does the patient need only verbal/nonverbal cueing or touching/steadying/contact guard assistance fro m one helper? No. DRESSING - LOWER BODY - STEP 4: Does the patient need physical assistance - for example lifting or trunk support from one helper - wi th the helper providing less than half of the effort? Yes. 1. [id number] ADMISSION PERFORMANCE: Partial/moderate assistance CODE: 03 PUTTING ON/TAKING OFF FOOTWEAR: FOOTWEAR - STEP 1: Does the patient complete the activity by him/herself with no assistance (physical, verbal/nonverbal cueing, setup/clean-up)? No. FOOTWEAR - STEP 2: Does the patient need only setup/clean-up assistance from one helper? No. FOOTWEAR - STEP 3: Does the patient need only verbal/nonverbal cueing or touching/steadying/contact guard assistance fro m one helper? No. FOOTWEAR - STEP 4: Does the patient need physical assistance - for example lifting or trunk support from one helper - wi th the helper providing less than half of the effort? Yes. 1. [id number] ADMISSION PERFORMANCE: Partial/moderate assistance CODE: 03 DOES THE PATIENT USE A WHEELCHAIR/SCOOTER? CODE: EXPR INDICATE THE TYPE OF WHEELCHAIR/SCOOTER USED: CODE: EXPR INDICATE THE TYPE OF WHEELCHAIR/SCOOTER USED: CODE: EXPR BLADDER AND BOWEL: H350. BLADDER CONTINENCE (3-DAY ASSESSMENT PERIOD): Incontinent daily (at least once a day) CODE: 3 H400. BOWEL CONTINENCE (3-DAY ASSESSMENT PERIOD): Occasionally incontinent (one episode of bowel incontinence) CODE: 1 SIGNATURE PANEL: The following modified sections: 1. [id number] Admission Performance, 1. [id number] Admission Performance, 1. [id number] Admission Performance, 1. [id number] Admission Performance, 1. [id number] Admission Performance, 1. [id number] Admission Performance, 1. [id number] Admission Performance, 1. [id number] Admission Performance , 1. OC5569z Admission Performance, H350. Bladder Continence (3-day assessment period), H400. Bowel C ontinence (3-day assessment period) were [electronically] signed by Merlyn Snell C.N.A. on SunMay 102019 14:17:21 GMT-0500 (Central Daylight Time)
[2019-05-23] MEDS: methocarbamoL 500 MG TAB PO PRN (20:35)
[2019-05-23] MEDS: ATORVASTATIN 40 MG TAB PO SCH (20:36)
[2019-05-23] MEDS: MIRTAZAPINE 15 MG TAB PO SCH (20:39)
--- NOTE | 2019-05-24 02:09 | FAST ---
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 Srinivasan Carey M.D. 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 EATING: Not assessed/no information CODE: - ORAL HYGIENE: Not assessed/no information CODE: - TOILETING HYGIENE: TOILETING HYGIENE - STEP 1: Does the patient complete the activity by him/herself with no assistance (physical, verbal/nonverbal cueing, setup/clean-up)? No. TOILETING HYGIENE - STEP 2: Does the patient need only setup/clean-up assistance from one helper? No. TOILETING HYGIENE - STEP 3: Does the patient need only verbal/nonverbal cueing or touching/steadying/contact guard assistance fro m one helper? Yes. 1. [id number] ADMISSION PERFORMANCE: Supervision or touching assistance CODE: 04 BATHING: Not assessed/no information CODE: - DRESSING - UPPER BODY: Not assessed/no information CODE: - DRESSING - LOWER BODY: Not assessed/no information CODE: - PUTTING ON/TAKING OFF FOOTWEAR: Not assessed/no information CODE: - ROLL LEFT AND RIGHT: ROLL LEFT AND RIGHT - STEP 1: Does the patient complete the activity by him/herself with no assistance (physical, verbal/nonverbal cueing, setup/clean-up)? No. ROLL LEFT AND RIGHT - STEP 2: Does the patient need only setup/clean-up assistance from one helper? No. ROLL LEFT AND RIGHT - STEP 3: Does the patient need only verbal/nonverbal cueing or touching/steadying/contact guard assistance fro m one helper? Yes. 1. [id number] ADMISSION PERFORMANCE: Supervision or touching assistance CODE: 04 SIT TO LYING: SIT TO LYING - STEP 1: Does the patient complete the activity by him/herself with no assistance (physical, verbal/nonverbal cueing, setup/clean-up)? No. SIT TO LYING - STEP 2: Does the patient need only setup/clean-up assistance from one helper? No. SIT TO LYING - STEP 3: Does the patient need only verbal/nonverbal cueing or touching/steadying/contact guard assistance fro m one helper? Yes. 1. [id number] ADMISSION PERFORMANCE: Supervision or touching assistance CODE: 04 LYING TO SITTING: LYING TO SITTING ON SIDE OF BED - STEP 1: Does the patient complete the activity by him/herself with no assistance (physical, verbal/nonverbal cueing, setup/clean-up)? No. LYING TO SITTING ON SIDE OF BED - STEP 2: Does the patient need only setup/clean-up assistance from one helper? No. LYING TO SITTING ON SIDE OF BED - STEP 3: Does the patient need only verbal/nonverbal cueing or touching/steadying/contact guard assistance fro m one helper? Yes. 1. [id number] ADMISSION PERFORMANCE: Supervision or touching assistance CODE: 04 SIT TO STAND: SIT TO STAND - STEP 1: Does the patient complete the activity by him/herself with no assistance (physical, verbal/nonverbal cueing, setup/clean-up)? No. SIT TO STAND - STEP 2: Does the patient need only setup/clean-up assistance from one helper? No. SIT TO STAND - STEP 3: Does the patient need only verbal/nonverbal cueing or touching/steadying/contact guard assistance fro m one helper? Yes. 1. [id number] ADMISSION PERFORMANCE: Supervision or touching assistance CODE: 04 TRANSFERS: BED, CHAIR: CHAIR/[id number] TRANSFER - STEP 1: Does the patient complete the activity by him/herself with no assistance (physical, verbal/nonverbal cueing, setup/clean-up)? No. CHAIR/[id number] TRANSFER - STEP 2: Does the patient need only setup/clean-up assistance from one helper? No. CHAIR/[id number] TRANSFER - STEP 3: Does the patient need only verbal/nonverbal cueing or touching/steadying/contact guard assistance fro m one helper? Yes. 1. [id number] ADMISSION PERFORMANCE: Supervision or touching assistance CODE: 04 TRANSFER TOILET: TOILET TRANSFER - STEP 1: Does the patient complete the activity by him/herself with no assistance (physical, verbal/nonverbal cueing, setup/clean-up)? No. TOILET TRANSFER - STEP 2: Does the patient need only setup/clean-up assistance from one helper? No. TOILET TRANSFER - STEP 3: Does the patient need only verbal/nonverbal cueing or touching/steadying/contact guard assistance fro m one helper? Yes. 1. [id number] ADMISSION PERFORMANCE: Supervision or touching assistance CODE: 04 TRANSFERS: CAR: Not assessed/no information CODE: - WALK 10 FEET: Not assessed/no information CODE: - 1 STEP (CURB): Not assessed/no information CODE: - PICKING UP OBJECT: Not assessed/no information CODE: - DOES THE PATIENT USE A WHEELCHAIR/SCOOTER? CODE: EXPR WHEEL 50 FEET WITH TWO TURNS: Not assessed/no information CODE: - INDICATE THE TYPE OF WHEELCHAIR/SCOOTER USED: CODE: EXPR WHEEL 150 FEET: Not assessed/no information CODE: - INDICATE THE TYPE OF WHEELCHAIR/SCOOTER USED: CODE: EXPR BLADDER AND BOWEL: H350. BLADDER CONTINENCE (3-DAY ASSESSMENT PERIOD): Always incontinent CODE: 4 H400. BOWEL CONTINENCE (3-DAY ASSESSMENT PERIOD): Always incontinent (no episodes of continent bowel movements) CODE: 3
[2019-05-24] MEDS: HYDROCODONE/APAP 10/325 TAB PO PRN ×3 (02:36→17:45)
[2019-05-24] MEDS: PROMOD 30 ML DOSE PO SCH ×2 (08:00→20:00)
[2019-05-24] MEDS: KETOROLAC OPTHALMIC 5 ML BOT OPTH SCH (08:10)
[2019-05-24] MEDS: CRANBERRY FRUIT EXTRACT 200 MG CAP PO SCH ×2 (08:10→21:03)
[2019-05-24] MEDS: FERROUS SULFATE 325 MG TAB PO SCH (08:10)
[2019-05-24] MEDS: LIDOCAINE 4% PATCH TOP SCH (08:10)
[2019-05-24] MEDS: ERYTHROMYCIN 1 APPL/1 GM TUBE EACH EYE SCH ×2 (08:10→21:05)
[2019-05-24] MEDS: FE SULF/FA/VIT B COMP & C TAB PO SCH (08:10)
[2019-05-24] MEDS: VITAMIN B COMPLEX 1 CAP PO SCH (08:11)
[2019-05-24] MEDS: APIXABAN 2.5 MG TABLET PO SCH ×2 (08:11→21:03)
[2019-05-24] MEDS: SERTRALINE HCL 100 MG TAB PO SCH (08:11)
[2019-05-24] MEDS: SMZ./TMP. 800/160 MG TABLET PO SCH ×2 (08:11→21:03)
[2019-05-24] MEDS: PANTOPRAZOLE 40MG TABLET PO SCH (08:11)
[2019-05-24] MEDS: GABAPENTIN 300 MG CAP PO SCH ×2 (08:11→21:04)
[2019-05-24] MEDS: methocarbamoL 500 MG TAB PO PRN (12:44)
[2019-05-24] MEDS: MIRTAZAPINE 15 MG TAB PO SCH (21:03)
[2019-05-24] MEDS: ATORVASTATIN 40 MG TAB PO SCH (21:03)
[2019-05-25] MEDS: HYDROCODONE/APAP 10/325 TAB PO PRN ×4 (03:06→17:31)
[2019-05-25] MEDS: ERYTHROMYCIN 1 APPL/1 GM TUBE EACH EYE SCH ×2 (07:50→20:28)
[2019-05-25] MEDS: KETOROLAC OPTHALMIC 5 ML BOT OPTH SCH (07:50)
[2019-05-25] MEDS: LIDOCAINE 4% PATCH TOP SCH (07:50)
[2019-05-25] MEDS: PANTOPRAZOLE 40MG TABLET PO SCH (07:51)
[2019-05-25] MEDS: PROMOD 30 ML DOSE PO SCH ×2 (08:00→20:00)
[2019-05-25] MEDS: SERTRALINE HCL 100 MG TAB PO SCH (09:09)
[2019-05-25] MEDS: APIXABAN 2.5 MG TABLET PO SCH ×2 (09:09→20:28)
[2019-05-25] MEDS: VITAMIN B COMPLEX 1 CAP PO SCH (09:10)
[2019-05-25] MEDS: GABAPENTIN 300 MG CAP PO SCH ×2 (09:10→20:28)
[2019-05-25] MEDS: FE SULF/FA/VIT B COMP & C TAB PO SCH (09:10)
[2019-05-25] MEDS: CRANBERRY FRUIT EXTRACT 200 MG CAP PO SCH ×2 (09:10→20:28)
[2019-05-25] MEDS: FERROUS SULFATE 325 MG TAB PO SCH (09:10)
[2019-05-25] MEDS: methocarbamoL 500 MG TAB PO PRN (20:27)
[2019-05-25] MEDS: MIRTAZAPINE 15 MG TAB PO SCH (20:28)
[2019-05-25] MEDS: ATORVASTATIN 40 MG TAB PO SCH (20:28)
[2019-05-25] MEDS: MELATONIN 3 MG TABLET PO PRN (22:45)
[2019-05-26] MEDS: HYDROCODONE/APAP 10/325 TAB PO PRN ×5 (04:09→21:46)
[2019-05-26] MEDS: PANTOPRAZOLE 40MG TABLET PO SCH (07:31)
[2019-05-26] MEDS: PROMOD 30 ML DOSE PO SCH ×2 (08:00→20:00)
[2019-05-26] MEDS: KETOROLAC OPTHALMIC 5 ML BOT OPTH SCH (09:05)
[2019-05-26] MEDS: FE SULF/FA/VIT B COMP & C TAB PO SCH (09:05)
[2019-05-26] MEDS: CRANBERRY FRUIT EXTRACT 200 MG CAP PO SCH ×2 (09:05→21:21)
[2019-05-26] MEDS: ERYTHROMYCIN 1 APPL/1 GM TUBE EACH EYE SCH ×2 (09:05→21:19)
[2019-05-26] MEDS: GABAPENTIN 300 MG CAP PO SCH ×2 (09:06→21:20)
[2019-05-26] MEDS: APIXABAN 2.5 MG TABLET PO SCH ×2 (09:06→21:21)
[2019-05-26] MEDS: SERTRALINE HCL 100 MG TAB PO SCH (09:06)
[2019-05-26] MEDS: VITAMIN B COMPLEX 1 CAP PO SCH (09:06)
[2019-05-26] MEDS: FERROUS SULFATE 325 MG TAB PO SCH (09:06)
[2019-05-26] MEDS: LIDOCAINE 4% PATCH TOP SCH (10:03)
--- NOTE | 2019-05-26 17:53 | R.PN ---
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 Pt denied any depression. Functional activities and transfers done with moderate to maximum assistance. Ambulated 250', 200', 80', 50', 25' and 225' with contact guard assistance using rolling walker. Up a nd down 9 steps with contact guard assistance. [05/21/2019 17:42 (CDT), by Dr. Srinivasan Carey] Patient states that pain is under control. WBC 12.4, prealbumin 12.4. He is on promod. VITAL SIGNS Temperature: 97.3 SBP/DBP: 128/64 Pulse: 61 Resp: 19 MEDICATION ALLERGIES: No Known Drug Allergies (NKDA) ENVIRONMENTAL ALLERGIES: - Substance Allergies None Known - Other Allergies None Known NURSING: - Shower allowing shower - Bladder care per protocol - Skin care per protocol ACTIVITIES OOB only with supervision THERAPIES: - Orthotics/Prosthetics Orthotic Evaluation. Splinting/Casting. - Dietary and Nutrition Adequate Nutrition. Nutritional Education. Nutritional Supplements. PHYSICAL EXAM - Gen Alert and awake Lying in bed No apparent distress Oriented to: person, time, and place - Skin No skin breakdown. Normacephalic - Eyes No abnormalities - ENMT No abnormalities - Neck [place] J cervical collar is in place. - CVS RRR - Resp Clear to auscultation - Abd Soft - GI + bowel sounds Deferred - No abnormalities - Ext No significant edema - MSK 4/5 weakness in both lower extremities. - Neuro No focal deficits - Psych No abnormalities ASSESSMENT: Pt. is a 64 yo Right-handed male.On 05/13/2019 [facility] with [facility] iagnosis SEVERE CERVICAL STENOSIS AND CORD COMPRESSION.His impairment category is Spinal Cord Dysfunc tion 04 - Other Non-traumatic Spinal Cord Dysfunction (04.130).Pre-morbidly, Pt. was independent/mod -I in Locomotion, Balance, Safety Awareness, Transfers Control, Sphincter Control, Social Cognition, Self-Care, Communication, and Endurance; and he had good Locomotion, Balance, Safety Awareness, Socia l Cognition, Transfers Control, Self-Care, Sphincter Control, Communication, and Endurance.Currently, he has deficits of Locomotion, Safety Awareness, Balance, Transfers Control, Self-Care, Communicatio n, and Endurance.Pt. is now referred to [facility] for acute in-patient rehabi litation in order to maximize patient's functional independence in activities of daily living, streng th, ROM, and mobility.- Rehab Goal Patient has realistic goal of being discharged at assistance level 6-Jett to reside at Home with Fam tara/Relatives. MDM/PLAN: - Physical Therapy Gait dysfunction - to improve, our physical therapists will perform initial evaluation of pt's statu s upon admission and devise an individualized program for Gait Training, and Wheel Chair mobility Inability to transfer - to improve, our physical therapists will perform initial evaluation of pt's status upon admission and devise an individualized program for Bed mobility Need for home safety evaluation - to improve, our physical therapists will perform initial evaluatio n of pt's status upon admission and devise an individualized program for Home Evaluation Need in caregiver upon discharge - to improve, our physical therapists will perform initial evaluati on of pt's status upon admission and devise an individualized program for Caregiver Training New precaution - to improve, our physical therapists will perform initial evaluation of pt's status upon admission and devise an individualized program for Patient precaution education Edema - to improve, our physical therapists will perform initial evaluation of pt's status upon admi ssion and devise an individualized program for Elevation Training, and Lymphedema Therapy Poor balance - to improve, our physical therapists will perform initial evaluation of pt's status up on admission and devise an individualized program for Balance Training Poor endurance - to improve, our physical therapists will perform initial evaluation of pt's status upon admission and devise an individualized program for Endurance Training Weakness - to improve, our physical therapists will perform initial evaluation of pt's status upon a dmission and devise an individualized program for Aquatic Therapy, Neuromuscular Reeducation, and Str engthening Achieving independence - to improve, our physical therapists will perform initial evaluation of pt's status upon admission and devise an individualized program for Community Reintegration Activities - Occupational Therapy ADL deficits - to improve, our occupation therapists will perform initial evaluation of pt's status upon admission and devise an individualized program for Bathing, Bed mobility, Community Reintegratio n, Cooking, Dressing, Eating, Fine Motor Skills, Grooming, Homemaking, Kitchen Mobility, Laundry, Pat ient Education, Safety Awareness, Splinting - Positioning, Transfers(Toilet, Tub, Shower), and Wheel Chair Management Need for care advocate - to improve, our occupation therapists will perform initial evaluation of pt's status upon admission and devise an individualized program for Caregiver Training Weakness - to improve, our occupation therapists will perform initial evaluation of pt's status upon admission and devise an individualized program for Aquatic Therapy, Balance, Endurance, UE ROM, and UE strengthening - Other See attached MAR (Medication Administration Record) - Diet Type Continue Regular - Diet - Liquid Texture Continue Regular - Tube Feed Continue N/A - Bladder care per protocol - Skin care per protocol - Diet - Solid Texture Continue Regular - Shower allowing shower FUNCTIONAL STATUS: UPDATED AT WEEKLY TEAM CONFERENCE - Bladder Same Bladder control device used: diaper Same Bladder medication used: NA Same accident frequency: 7-Ind - No accidents in the past 7 days - Bowel Same accident frequency: 7-Ind - No accidents in the past 7 days - Walking Same score based on distance walked: 0(N/A) Same score based on distance walked: 2(50-149ft) - Wheelchair Same score based on distance traveled: 0(N/A) FUNCTIONAL STATUS: - Self-Care A. Eating sup B. Grooming modA C. Bathing maxA D. Dressing - Upper Lev E. Dressing - Lower modA F. Toileting Lev - Sphincter Control G. Bladder control sup H. Bowel control Lev - Transfers Control I. Bed/Chair/Wheelchair maxA J. Toilet maxA K. Tub/Shower maxA - Locomotion L. Walk/Wheelchair (B) modA M. Stairs ADNO - Communication N. Comprehension (B) sup O. Expression (B) sup - Social Cognition P. Social Interaction Ind Q. Problem Solving sup R. Memory sup - Endurance Fair - Balance Poor - Safety Awareness Fair QI SCORES: - Self-Care A. Eating 06-Independent B. Oral hygiene 03-Partial/moderate assistance C. Toileting hygiene 02-Substantial/maximal assistance E. Shower/bathe self 03-Partial/moderate assistance F. Upper body dressing 03-Partial/moderate assistance G. Lower body dressing 03-Partial/moderate assistance H. Putting on/taking off footwear 03-Partial/moderate assistance - Mobility A. Roll left and right 03-Partial/moderate assistance B. Sit to lying 03-Partial/moderate assistance C. Lying to sitting on side of bed 03-Partial/moderate assistance D. Sit to stand 03-Partial/moderate assistance E. Chair/[id number]-[id number] transfer 03-Partial/moderate assistance F. Toilet transfer 03-Partial/moderate assistance G. Car transfer 88-Not attempted due to medical condition or safety concerns I. Walk 10 feet 03-Partial/moderate assistance J. Walk 50 feet with two turns 02-Substantial/maximal assistance K. Walk 150 feet 88-Not attempted due to medical condition or safety concerns L. Walking 10 feet on uneven surfaces 88-Not attempted due to medical condition or safety concerns M. 1 step (curb) 88-Not attempted due to medical condition or safety concerns N. 4 steps 88-Not attempted due to medical condition or safety concerns O. 12 steps 88-Not attempted due to medical condition or safety concerns P. Picking up object 06-Independent R. Wheel 50 feet with two turns 88-Not attempted due to medical condition or safety concerns S. Wheel 150 feet 88-Not attempted due to medical condition or safety concerns - Bladder and Bowel Bladder continence 3-Incontinent daily Bowel continence 2-Frequently incontinent - Endurance Fair - Balance Fair - Safety Awareness Fair CURRENT FUNC. DEFICITS: Mobility, Endurance, Balance, Safety Awareness, and Self-Care SIGNATURE PANEL: (CDT)
[2019-05-26] MEDS: ATORVASTATIN 40 MG TAB PO SCH (21:19)
[2019-05-26] MEDS: methocarbamoL 500 MG TAB PO PRN (21:20)
[2019-05-26] MEDS: MIRTAZAPINE 15 MG TAB PO SCH (21:20)
[2019-05-26] MEDS: TRAZODONE 50 MG TABLET PO PRN (21:20)
[2019-05-27] MEDS: HYDROCODONE/APAP 10/325 TAB PO PRN ×3 (05:17→19:37)
[2019-05-27] MEDS: KETOROLAC OPTHALMIC 5 ML BOT OPTH SCH (08:00)
[2019-05-27] MEDS: PROMOD 30 ML DOSE PO SCH ×2 (08:00→19:38)
[2019-05-27] MEDS: ERYTHROMYCIN 1 APPL/1 GM TUBE EACH EYE SCH ×2 (08:22→19:36)
[2019-05-27] MEDS: CRANBERRY FRUIT EXTRACT 200 MG CAP PO SCH ×2 (08:22→19:37)
[2019-05-27] MEDS: LIDOCAINE 4% PATCH TOP SCH (08:22)
[2019-05-27] MEDS: SERTRALINE HCL 100 MG TAB PO SCH (08:23)
[2019-05-27] MEDS: VITAMIN B COMPLEX 1 CAP PO SCH (08:23)
[2019-05-27] MEDS: FERROUS SULFATE 325 MG TAB PO SCH (08:23)
[2019-05-27] MEDS: FE SULF/FA/VIT B COMP & C TAB PO SCH (08:24)
[2019-05-27] MEDS: GABAPENTIN 300 MG CAP PO SCH ×2 (08:24→19:37)
[2019-05-27] MEDS: methocarbamoL 500 MG TAB PO PRN ×2 (08:24→19:36)
[2019-05-27] MEDS: APIXABAN 2.5 MG TABLET PO SCH ×2 (08:25→19:38)
[2019-05-27] MEDS: PANTOPRAZOLE 40MG TABLET PO SCH (08:25)
--- NOTE | 2019-05-27 17:57 | P.CNS ---
Date of Consult: 05/27/19 Reason for Consult: painful toenails Requesting Physician: Srinivasan Carey Chief Complaint: Painful toenails Allergies No Known Allergies Allergy (Unverified 05/16/19 19:05) Home Medications: Acetaminophen [Tylenol] 325 mg PO Q6HP PRN 05/17/19 Atorvastatin Calcium [Lipitor] 40 mg PO BEDTIME 05/17/19 Gabapentin [Neurontin] 100 mg PO DAILY 05/17/19 Gentamicin Opth Drop [Garamycin Opth Drops] 2 drops OP Q4H 05/17/19 Hydrocodone Bit/Acetaminophen [Hydrocodon-Acetaminophn 10-325] 10 - 325 mg PO Q4HP PRN 05/17/19 Mirtazapine 7.5 mg PO BEDTIME 05/17/19 Naproxen Sodium [Aleve] 220 mg PO BID 05/17/19 Sertraline [Zoloft] 100 mg PO DAILY 05/17/19 Vit B12/Levomefolate/Vit B6/B2 [l-Methyl-Mc Tablet] 100 mcg PO DAILY 05/17/19 Vitamin B Complex [B Complex] 1 each PO DAILY 05/17/19 methocarbamoL [Methocarbamol] 500 mg PO TID 05/17/19 - Past Medical/Surgical History Diabetic: No -: Cervical myelopathy - Social History Alcohol use: Yes CD- Drugs: No Caffeine use: Yes Place of Residence: Home Review of Systems 10-point ROS is otherwise unremarkable Physical Examination Temp Pulse Resp BP Pulse Ox 96.8 F 57 16 128/62 94 05/27/19 09:21 05/27/19 09:21 05/27/19 11:02 05/27/19 09:21 05/27/19 11:02 General: Alert, In no apparent distress, Oriented x3 Cardiovascular: No edema, Abnormal pulses (1/4 dp pulse bilateral, 0/4 pt pulse bilateral) Capillary refill: <2 Seconds Musculoskeletal: No clubbing, No swelling, No contractures, No erythema, No tenderness, No warmth Integumentary: No warmth, Other (thickened hypertrophic nails 1 and 2 bilateral with subungual debris. Nails 3-5 noted to be elongated and discolored. Skin is cool to touch, diminished hair growth bilateral) Neurological: Sensation intact - Problems (1) Tinea unguium Current Visit: Yes Status: Acute (2) Generalized atherosclerosis Current Visit: Yes Status: Acute (3) Onychogryphosis Current Visit: Yes Status: Acute Conclusions/Impression: Nail were mechanically debrided at bedside. Patient tolerated procedure well with no complaints Physician Review: Patient Assessed, Agree with Above Assessment and Plan
[2019-05-27] MEDS: MIRTAZAPINE 15 MG TAB PO SCH (19:37)
[2019-05-27] MEDS: ATORVASTATIN 40 MG TAB PO SCH (19:37)
[2019-05-27] MEDS: TRAZODONE 50 MG TABLET PO PRN (19:38)
[2019-05-27] MEDS: DOCUSATE NA/SENNA CONC 1 TAB PO PRN (19:38)
[2019-05-28] MEDS: PROMOD 30 ML DOSE PO SCH ×2 (08:00→20:00)
[2019-05-28] MEDS: CRANBERRY FRUIT EXTRACT 200 MG CAP PO SCH ×2 (08:32→20:46)
[2019-05-28] MEDS: LIDOCAINE 4% PATCH TOP SCH (08:32)
[2019-05-28] MEDS: GABAPENTIN 300 MG CAP PO SCH ×2 (08:33→20:47)
[2019-05-28] MEDS: VITAMIN B COMPLEX 1 CAP PO SCH (08:33)
[2019-05-28] MEDS: SERTRALINE HCL 100 MG TAB PO SCH (08:33)
[2019-05-28] MEDS: FE SULF/FA/VIT B COMP & C TAB PO SCH (08:33)
[2019-05-28] MEDS: FERROUS SULFATE 325 MG TAB PO SCH (08:33)
[2019-05-28] MEDS: KETOROLAC OPTHALMIC 5 ML BOT OPTH SCH (08:34)
[2019-05-28] MEDS: PANTOPRAZOLE 40MG TABLET PO SCH (08:34)
[2019-05-28] MEDS: ERYTHROMYCIN 1 APPL/1 GM TUBE EACH EYE SCH ×2 (08:34→20:46)
[2019-05-28] MEDS: HYDROCODONE/APAP 10/325 TAB PO PRN ×2 (08:34→18:58)
[2019-05-28] MEDS: APIXABAN 2.5 MG TABLET PO SCH ×2 (08:34→20:46)
[2019-05-28] MEDS: methocarbamoL 500 MG TAB PO PRN (13:05)
--- NOTE | 2019-05-28 13:49 | FAST ---
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 Srinivasan Carey M.D. 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 EATING: EATING - STEP 1: Does the patient complete the activity by him/herself with no assistance (physical, verbal/nonverbal cueing, setup/clean-up)? No. EATING - STEP 2: Does the patient need only setup/clean-up assistance from one helper? Yes. 1. [id number] ADMISSION PERFORMANCE: Setup or clean-up assistance CODE: 05 ORAL HYGIENE: Patient refused CODE: 07 TOILETING HYGIENE: TOILETING HYGIENE - STEP 1: Does the patient complete the activity by him/herself with no assistance (physical, verbal/nonverbal cueing, setup/clean-up)? No. TOILETING HYGIENE - STEP 2: Does the patient need only setup/clean-up assistance from one helper? No. TOILETING HYGIENE - STEP 3: Does the patient need only verbal/nonverbal cueing or touching/steadying/contact guard assistance fro m one helper? Yes. 1. [id number] ADMISSION PERFORMANCE: Supervision or touching assistance CODE: 04 BATHING: Not assessed/no information CODE: - DRESSING - UPPER BODY: DRESSING - UPPER BODY - STEP 1: Does the patient complete the activity by him/herself with no assistance (physical, verbal/nonverbal cueing, setup/clean-up)? No. DRESSING - UPPER BODY - STEP 2: Does the patient need only setup/clean-up assistance from one helper? No. DRESSING - UPPER BODY - STEP 3: Does the patient need only verbal/nonverbal cueing or touching/steadying/contact guard assistance fro m one helper? No. DRESSING - UPPER BODY - STEP 4: Does the patient need physical assistance - for example lifting or trunk support from one helper - wi th the helper providing less than half of the effort? Yes. 1. [id number] ADMISSION PERFORMANCE: Partial/moderate assistance CODE: 03 DRESSING - LOWER BODY: DRESSING - LOWER BODY - STEP 1: Does the patient complete the activity by him/herself with no assistance (physical, verbal/nonverbal cueing, setup/clean-up)? No. DRESSING - LOWER BODY - STEP 2: Does the patient need only setup/clean-up assistance from one helper? No. DRESSING - LOWER BODY - STEP 3: Does the patient need only verbal/nonverbal cueing or touching/steadying/contact guard assistance fro m one helper? No. DRESSING - LOWER BODY - STEP 4: Does the patient need physical assistance - for example lifting or trunk support from one helper - wi th the helper providing less than half of the effort? Yes. 1. [id number] ADMISSION PERFORMANCE: Partial/moderate assistance CODE: 03 PUTTING ON/TAKING OFF FOOTWEAR: FOOTWEAR - STEP 1: Does the patient complete the activity by him/herself with no assistance (physical, verbal/nonverbal cueing, setup/clean-up)? No. FOOTWEAR - STEP 2: Does the patient need only setup/clean-up assistance from one helper? Yes. 1. [id number] ADMISSION PERFORMANCE: Setup or clean-up assistance CODE: 05 DOES THE PATIENT USE A WHEELCHAIR/SCOOTER? CODE: EXPR INDICATE THE TYPE OF WHEELCHAIR/SCOOTER USED: CODE: EXPR INDICATE THE TYPE OF WHEELCHAIR/SCOOTER USED: CODE: EXPR BLADDER AND BOWEL: H350. BLADDER CONTINENCE (3-DAY ASSESSMENT PERIOD): Incontinent daily (at least once a day) CODE: 3 H400. BOWEL CONTINENCE (3-DAY ASSESSMENT PERIOD): Always incontinent (no episodes of continent bowel movements) CODE: 3 SIGNATURE PANEL: The following modified sections: 1. [id number] Admission Performance, 1. [id number] Admission Performance, 1. [id number] Admission Performance, 1. [id number] Admission Performance, 1. [id number] Admission Performance, H350. Bladder Continence (3-day assessment period), H400. Bowel Continence (3-day assessment period) were [electronically] signed by Ernestine StaleyNBrandy on SunMay 28 2019 13:49:21 [facility]-0500 ([facility] Time)
--- NOTE | 2019-05-28 16:29 | R.PN ---
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 Pt denied any depression. Functional activities and transfers done with moderate to maximum assistance. Ambulated 250' x 2 with standby assistance using rolling walker. Up and down 15 steps with standby as sistance. [05/21/2019 17:42 (CDT), by Dr. Srinivasan Carey] Patient states that pain is under control. WBC 12.4, prealbumin 12.4. He is on promod. VITAL SIGNS Temperature: 97.3 SBP/DBP: 109/64 Pulse: 64 Resp: 16 MEDICATION ALLERGIES: No Known Drug Allergies (NKDA) ENVIRONMENTAL ALLERGIES: - Substance Allergies None Known - Other Allergies None Known NURSING: - Shower allowing shower - Bladder care per protocol - Skin care per protocol ACTIVITIES OOB only with supervision THERAPIES: - Orthotics/Prosthetics Orthotic Evaluation. Splinting/Casting. - Dietary and Nutrition Adequate Nutrition. Nutritional Education. Nutritional Supplements. PHYSICAL EXAM - Gen Alert and awake Lying in bed No apparent distress Oriented to: person, time, and place - Skin No skin breakdown. Normacephalic - Eyes No abnormalities - ENMT No abnormalities - Neck [place] J cervical collar is in place. - CVS RRR - Resp Clear to auscultation - Abd Soft - GI + bowel sounds Deferred - No abnormalities - Ext No significant edema - MSK 4/5 weakness in both lower extremities. - Neuro No focal deficits - Psych No abnormalities ASSESSMENT: Pt. is a 64 yo Right-handed male.On 05/13/2019 he was admitted to [facility] hospital with d iagnosis SEVERE CERVICAL STENOSIS AND CORD COMPRESSION.His impairment category is Spinal Cord Dysfunc tion 04 - Other Non-traumatic Spinal Cord Dysfunction (04.130).Pre-morbidly, Pt. was independent/mod -I in Locomotion, Balance, Safety Awareness, Transfers Control, Sphincter Control, Social Cognition, Self-Care, Communication, and Endurance; and he had good Locomotion, Balance, Safety Awareness, Socia l Cognition, Transfers Control, Self-Care, Sphincter Control, Communication, and Endurance.Currently, he has deficits of Locomotion, Safety Awareness, Balance, Transfers Control, Self-Care, Communicatio n, and Endurance.Pt. is now referred to [facility] for acute in-patient rehabi litation in order to maximize patient's functional independence in activities of daily living, streng th, ROM, and mobility.- Rehab Goal Patient has realistic goal of being discharged at assistance level 6-Jett to reside at Home with Fam tara/Relatives. MDM/PLAN: - Physical Therapy Gait dysfunction - to improve, our physical therapists will perform initial evaluation of pt's statu s upon admission and devise an individualized program for Gait Training, and Wheel Chair mobility Inability to transfer - to improve, our physical therapists will perform initial evaluation of pt's status upon admission and devise an individualized program for Bed mobility Need for home safety evaluation - to improve, our physical therapists will perform initial evaluatio n of pt's status upon admission and devise an individualized program for Home Evaluation Need in caregiver upon discharge - to improve, our physical therapists will perform initial evaluati on of pt's status upon admission and devise an individualized program for Caregiver Training New precaution - to improve, our physical therapists will perform initial evaluation of pt's status upon admission and devise an individualized program for Patient precaution education Edema - to improve, our physical therapists will perform initial evaluation of pt's status upon admi ssion and devise an individualized program for Elevation Training, and Lymphedema Therapy Poor balance - to improve, our physical therapists will perform initial evaluation of pt's status up on admission and devise an individualized program for Balance Training Poor endurance - to improve, our physical therapists will perform initial evaluation of pt's status upon admission and devise an individualized program for Endurance Training Weakness - to improve, our physical therapists will perform initial evaluation of pt's status upon a dmission and devise an individualized program for Aquatic Therapy, Neuromuscular Reeducation, and Str engthening Achieving independence - to improve, our physical therapists will perform initial evaluation of pt's status upon admission and devise an individualized program for Community Reintegration Activities - Occupational Therapy ADL deficits - to improve, our occupation therapists will perform initial evaluation of pt's status upon admission and devise an individualized program for Bathing, Bed mobility, Community Reintegratio n, Cooking, Dressing, Eating, Fine Motor Skills, Grooming, Homemaking, Kitchen Mobility, Laundry, Pat ient Education, Safety Awareness, Splinting - Positioning, Transfers(Toilet, Tub, Shower), and Wheel Chair Management Need for wound care specialist - to improve, our occupation therapists will perform initial evaluation of pt's status upon admission and devise an individualized program for Caregiver Training Weakness - to improve, our occupation therapists will perform initial evaluation of pt's status upon admission and devise an individualized program for Aquatic Therapy, Balance, Endurance, UE ROM, and UE strengthening - Other See attached MAR (Medication Administration Record) - Diet Type Continue Regular - Diet - Liquid Texture Continue Regular - Tube Feed Continue N/A - Bladder care per protocol - Skin care per protocol - Diet - Solid Texture Continue Regular - Shower allowing shower FUNCTIONAL STATUS: UPDATED AT WEEKLY TEAM CONFERENCE - Bladder Same Bladder control device used: diaper Same Bladder medication used: NA Same accident frequency: 7-Ind - No accidents in the past 7 days - Bowel Same accident frequency: 7-Ind - No accidents in the past 7 days - Walking Same score based on distance walked: 0(N/A) Same score based on distance walked: 2(50-149ft) - Wheelchair Same score based on distance traveled: 0(N/A) FUNCTIONAL STATUS: - Self-Care A. Eating sup B. Grooming modA C. Bathing maxA D. Dressing - Upper Lev E. Dressing - Lower modA F. Toileting Lev - Sphincter Control G. Bladder control sup H. Bowel control Lev - Transfers Control I. Bed/Chair/Wheelchair maxA J. Toilet maxA K. Tub/Shower maxA - Locomotion L. Walk/Wheelchair (B) modA M. Stairs ADNO - Communication N. Comprehension (B) sup O. Expression (B) sup - Social Cognition P. Social Interaction Ind Q. Problem Solving sup R. Memory sup - Endurance Fair - Balance Poor - Safety Awareness Fair QI SCORES: - Self-Care A. Eating 06-Independent B. Oral hygiene 03-Partial/moderate assistance C. Toileting hygiene 02-Substantial/maximal assistance E. Shower/bathe self 03-Partial/moderate assistance F. Upper body dressing 03-Partial/moderate assistance G. Lower body dressing 03-Partial/moderate assistance H. Putting on/taking off footwear 03-Partial/moderate assistance - Mobility A. Roll left and right 03-Partial/moderate assistance B. Sit to lying 03-Partial/moderate assistance C. Lying to sitting on side of bed 03-Partial/moderate assistance D. Sit to stand 03-Partial/moderate assistance E. Chair/[id number] transfer 03-Partial/moderate assistance F. Toilet transfer 03-Partial/moderate assistance G. Car transfer 88-Not attempted due to medical condition or safety concerns I. Walk 10 feet 03-Partial/moderate assistance J. Walk 50 feet with two turns 02-Substantial/maximal assistance K. Walk 150 feet 88-Not attempted due to medical condition or safety concerns L. Walking 10 feet on uneven surfaces 88-Not attempted due to medical condition or safety concerns M. 1 step (curb) 88-Not attempted due to medical condition or safety concerns N. 4 steps 88-Not attempted due to medical condition or safety concerns O. 12 steps 88-Not attempted due to medical condition or safety concerns P. Picking up object 06-Independent R. Wheel 50 feet with two turns 88-Not attempted due to medical condition or safety concerns S. Wheel 150 feet 88-Not attempted due to medical condition or safety concerns - Bladder and Bowel Bladder continence 3-Incontinent daily Bowel continence 2-Frequently incontinent - Endurance Fair - Balance Fair - Safety Awareness Fair CURRENT FUNC. DEFICITS: Mobility, Endurance, Balance, Safety Awareness, and Self-Care SIGNATURE PANEL: (CDT)
[2019-05-28] MEDS: ATORVASTATIN 40 MG TAB PO SCH (20:46)
[2019-05-28] MEDS: MELATONIN 3 MG TABLET PO PRN (20:46)
[2019-05-28] MEDS: MIRTAZAPINE 15 MG TAB PO SCH (20:47)
[2019-05-29] MEDS: HYDROCODONE/APAP 10/325 TAB PO PRN ×4 (05:03→18:47)
[2019-05-29 06:24] LABS: Absolute Lymphocytes (CBC) 2.8 K/uL (0.7-4.9); Basophils % 1.4 % (0-1.3); Hematocrit 32.5 % (39.6-49.0); Lymphocytes % 40.9 % (15.3-44.8); RBC Red Blood Cell Count 3.49 M/uL (4.33-5.43)
[2019-05-29 06:47] LABS: BUN Blood Urea Nitrogen 29 mg/dL (7-18); Bicarbonate 28 mmol/L (21-32); Glucose Level 90 mg/dL (74-106); Magnesium 2.2 mg/dL (1.8-2.4); Potassium 4.1 mmol/L (3.5-5.1); Prealbumin 21.7 mg/dL (20-40); Sodium Level 139 mmol/L (136-145)
[2019-05-29] MEDS: PROMOD 30 ML DOSE PO SCH ×2 (08:00→20:00)
[2019-05-29] MEDS: PANTOPRAZOLE 40MG TABLET PO SCH (08:30)
[2019-05-29] MEDS: KETOROLAC OPTHALMIC 5 ML BOT OPTH SCH (08:31)
[2019-05-29] MEDS: ERYTHROMYCIN 1 APPL/1 GM TUBE EACH EYE SCH ×2 (08:31→20:27)
[2019-05-29] MEDS: LIDOCAINE 4% PATCH TOP SCH (08:32)
[2019-05-29] MEDS: APIXABAN 2.5 MG TABLET PO SCH ×2 (08:32→20:27)
[2019-05-29] MEDS: FERROUS SULFATE 325 MG TAB PO SCH (08:32)
[2019-05-29] MEDS: SERTRALINE HCL 100 MG TAB PO SCH (08:32)
[2019-05-29] MEDS: GABAPENTIN 300 MG CAP PO SCH ×2 (08:32→20:28)
[2019-05-29] MEDS: CRANBERRY FRUIT EXTRACT 200 MG CAP PO SCH ×2 (08:32→20:27)
[2019-05-29] MEDS: FE SULF/FA/VIT B COMP & C TAB PO SCH (08:32)
[2019-05-29] MEDS: VITAMIN B COMPLEX 1 CAP PO SCH (08:32)
--- NOTE | 2019-05-29 14:50 | FAST ---
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 Srinivasan Carey M.D. 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 ROLL LEFT AND RIGHT: ROLL LEFT AND RIGHT - STEP 1: Does the patient complete the activity by him/herself with no assistance (physical, verbal/nonverbal cueing, setup/clean-up)? Yes. 1. [id number] ADMISSION PERFORMANCE: Independent CODE: 06 SIT TO LYING: SIT TO LYING - STEP 1: Does the patient complete the activity by him/herself with no assistance (physical, verbal/nonverbal cueing, setup/clean-up)? Yes. 1. [id number] ADMISSION PERFORMANCE: Independent CODE: 06 LYING TO SITTING: LYING TO SITTING ON SIDE OF BED - STEP 1: Does the patient complete the activity by him/herself with no assistance (physical, verbal/nonverbal cueing, setup/clean-up)? Yes. 1. [id number] ADMISSION PERFORMANCE: Independent CODE: 06 SIT TO STAND: SIT TO STAND - STEP 1: Does the patient complete the activity by him/herself with no assistance (physical, verbal/nonverbal cueing, setup/clean-up)? Yes. 1. [id number] ADMISSION PERFORMANCE: Independent CODE: 06 TRANSFERS: BED, CHAIR: CHAIR/[id number] TRANSFER - STEP 1: Does the patient complete the activity by him/herself with no assistance (physical, verbal/nonverbal cueing, setup/clean-up)? Yes. 1. [id number] ADMISSION PERFORMANCE: Independent CODE: 06 TRANSFER TOILET: TOILET TRANSFER - STEP 1: Does the patient complete the activity by him/herself with no assistance (physical, verbal/nonverbal cueing, setup/clean-up)? Yes. 1. [id number] ADMISSION PERFORMANCE: Independent CODE: 06 TRANSFERS: CAR: Not attempted due to environmental limitations (e.g., lack of equipment, weather constraints) CODE: 10 WALK 10 FEET: WALK 10 FEET - STEP 1: Does the patient complete the activity by him/herself with no assistance (physical, verbal/nonverbal cueing, setup/clean-up)? Yes. 1. [id number] ADMISSION PERFORMANCE: Independent CODE: 06 WALK 50 FEET: WALK 50 FEET - STEP 1: Does the patient complete the activity by him/herself with no assistance (physical, verbal/nonverbal cueing, setup/clean-up)? Yes. 1. [id number] ADMISSION PERFORMANCE: Independent CODE: 06 WALK 150 FEET: WALK 150 FEET - STEP 1: Does the patient complete the activity by him/herself with no assistance (physical, verbal/nonverbal cueing, setup/clean-up)? Yes. 1. [id number] ADMISSION PERFORMANCE: Independent CODE: WALK 10 FEET UNEVEN: Not attempted due to medical condition or safety concerns CODE: 88 1 STEP (CURB): 1 STEP CURB - STEP 1: Does the patient complete the activity by him/herself with no assistance (physical, verbal/nonverbal cueing, setup/clean-up)? No. 1 STEP CURB - STEP 2: Does the patient need only setup/clean-up assistance from one helper? Yes. 1. [id number] ADMISSION PERFORMANCE: Setup or clean-up assistance CODE: 05 4 STEPS: 4 STEPS - STEP 1: Does the patient complete the activity by him/herself with no assistance (physical, verbal/nonverbal cueing, setup/clean-up)? No. 4 STEPS - STEP 2: Does the patient need only setup/clean-up assistance from one helper? Yes. 1. [id number] ADMISSION PERFORMANCE: Setup or clean-up assistance CODE: 05 12 STEPS: 12 STEPS - STEP 1: Does the patient complete the activity by him/herself with no assistance (physical, verbal/nonverbal cueing, setup/clean-up)? No. 12 STEPS - STEP 2: Does the patient need only setup/clean-up assistance from one helper? Yes. 1. [id number] ADMISSION PERFORMANCE: Setup or clean-up assistance CODE: 05 PICKING UP OBJECT: Not attempted due to medical condition or safety concerns CODE: 88 DOES THE PATIENT USE A WHEELCHAIR/SCOOTER? Q1. DOES THE PATIENT USE A WHEELCHAIR/SCOOTER?: Yes CODE: 1 WHEEL 50 FEET WITH TWO TURNS: WHEEL 50 FEET WITH TWO TURNS - STEP 1: Does the patient complete the activity by him/herself with no assistance (physical, verbal/nonverbal cueing, setup/clean-up)? No. WHEEL 50 FEET WITH TWO TURNS - STEP 2: Does the patient need only setup/clean-up assistance from one helper? Yes. 1. [id number] ADMISSION PERFORMANCE: Setup or clean-up assistance CODE: 05 INDICATE THE TYPE OF WHEELCHAIR/SCOOTER USED: RR1. INDICATE THE TYPE OF WHEELCHAIR/SCOOTER USED.: Manual CODE: 1 WHEEL 150 FEET: WHEEL 150 FEET - STEP 1: Does the patient complete the activity by him/herself with no assistance (physical, verbal/nonverbal cueing, setup/clean-up)? No. WHEEL 150 FEET - STEP 2: Does the patient need only setup/clean-up assistance from one helper? Yes. 1. [id number] ADMISSION PERFORMANCE: Setup or clean-up assistance CODE: 05 INDICATE THE TYPE OF WHEELCHAIR/SCOOTER USED: SS1. INDICATE THE TYPE OF WHEELCHAIR/SCOOTER USED.: Manual CODE: 1 BLADDER AND BOWEL: CODE: EXPR CODE: EXPR SIGNATURE PANEL: The following modified sections: 1. [id number] Admission Performance, 1. [id number] Admission Performance, 1. [id number] Admission Performance, 1. [id number] Admission Performance, 1. [id number] Admission Performance, 1. [id number] Admission Performance, 1. [id number] Admission Performance, 1. [id number] Admission Performance , 1. [id number] Admission Performance, 1. [id number] Admission Performance, 1. [id number] Admission Performanc e, 1. [id number] Admission Performance, Q1. Does the patient use a wheelchair/scooter?, 1. [id number] Admis prachi Performance, RR1. Indicate the type of wheelchair/scooter used., 1. [id number] Admission Performanc e, Code, SS1. Indicate the type of wheelchair/scooter used. were [electronically] signed by Elpidio arboleda PTA on SunMay 29 2019 14:49:22 GMT-0500 (Central Daylight Time)
--- NOTE | 2019-05-29 18:06 | R.PN ---
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 Pt denied any depression. Functional activities and transfers done with moderate to maximum assistance. Ambulated 1000' with independence using rolling walker. Up and down 15 steps with standby assistance. Patient states that pain is under control. WBC 6.7, Hgb 10.9, prealbumin 21.7. He is on promod. VITAL SIGNS Temperature: 97.3 SBP/DBP: 107/69 Pulse: 59 Resp: 16 MEDICATION ALLERGIES: No Known Drug Allergies (NKDA) ENVIRONMENTAL ALLERGIES: - Substance Allergies None Known - Other Allergies None Known NURSING: - Shower allowing shower - Bladder care per protocol - Skin care per protocol ACTIVITIES OOB only with supervision THERAPIES: - Orthotics/Prosthetics Orthotic Evaluation. Splinting/Casting. - Dietary and Nutrition Adequate Nutrition. Nutritional Education. Nutritional Supplements. PHYSICAL EXAM - Gen Alert and awake Lying in bed No apparent distress Oriented to: person, time, and place - Skin No skin breakdown. Normacephalic - Eyes No abnormalities - ENMT No abnormalities - Neck [place] J cervical collar is in place. - CVS RRR - Resp Clear to auscultation - Abd Soft - GI + bowel sounds Deferred - No abnormalities - Ext No significant edema - MSK 4/5 weakness in both lower extremities. - Neuro No focal deficits - Psych No abnormalities ASSESSMENT: Pt. is a 64 yo Right-handed male.On 05/13/2019 he was admitted to [facility] with d iagnosis SEVERE CERVICAL STENOSIS AND CORD COMPRESSION.His impairment category is Spinal Cord Dysfunc tion 04 - Other Non-traumatic Spinal Cord Dysfunction (04.130).Pre-morbidly, Pt. was independent/mod -I in Locomotion, Balance, Safety Awareness, Transfers Control, Sphincter Control, Social Cognition, Self-Care, Communication, and Endurance; and he had good Locomotion, Balance, Safety Awareness, Socia l Cognition, Transfers Control, Self-Care, Sphincter Control, Communication, and Endurance.Currently, he has deficits of Locomotion, Safety Awareness, Balance, Transfers Control, Self-Care, Communicatio n, and Endurance.Pt. is now referred to [facility] for acute in-patient rehabi litation in order to maximize patient's functional independence in activities of daily living, streng th, ROM, and mobility.- Rehab Goal Patient has realistic goal of being discharged at assistance level 6-Jett to reside at Home with Fam tara/Relatives. MDM/PLAN: - Physical Therapy Gait dysfunction - to improve, our physical therapists will perform initial evaluation of pt's statu s upon admission and devise an individualized program for Gait Training, and Wheel Chair mobility Inability to transfer - to improve, our physical therapists will perform initial evaluation of pt's status upon admission and devise an individualized program for Bed mobility Need for home safety evaluation - to improve, our physical therapists will perform initial evaluatio n of pt's status upon admission and devise an individualized program for Home Evaluation Need in caregiver upon discharge - to improve, our physical therapists will perform initial evaluati on of pt's status upon admission and devise an individualized program for Caregiver Training New precaution - to improve, our physical therapists will perform initial evaluation of pt's status upon admission and devise an individualized program for Patient precaution education Edema - to improve, our physical therapists will perform initial evaluation of pt's status upon admi ssion and devise an individualized program for Elevation Training, and Lymphedema Therapy Poor balance - to improve, our physical therapists will perform initial evaluation of pt's status up on admission and devise an individualized program for Balance Training Poor endurance - to improve, our physical therapists will perform initial evaluation of pt's status upon admission and devise an individualized program for Endurance Training Weakness - to improve, our physical therapists will perform initial evaluation of pt's status upon a dmission and devise an individualized program for Aquatic Therapy, Neuromuscular Reeducation, and Str engthening Achieving independence - to improve, our physical therapists will perform initial evaluation of pt's status upon admission and devise an individualized program for Community Reintegration Activities - Occupational Therapy ADL deficits - to improve, our occupation therapists will perform initial evaluation of pt's status upon admission and devise an individualized program for Bathing, Bed mobility, Community Reintegratio n, Cooking, Dressing, Eating, Fine Motor Skills, Grooming, Homemaking, Kitchen Mobility, Laundry, Pat ient Education, Safety Awareness, Splinting - Positioning, Transfers(Toilet, Tub, Shower), and Wheel Chair Management Need for home health care case manager - to improve, our occupation therapists will perform initial evaluation of pt's status upon admission and devise an individualized program for Caregiver Training Weakness - to improve, our occupation therapists will perform initial evaluation of pt's status upon admission and devise an individualized program for Aquatic Therapy, Balance, Endurance, UE ROM, and UE strengthening - Other See attached MAR (Medication Administration Record) - Diet Type Continue Regular - Diet - Liquid Texture Continue Regular - Tube Feed Continue N/A - Bladder care per protocol - Skin care per protocol - Diet - Solid Texture Continue Regular - Shower allowing shower FUNCTIONAL STATUS: UPDATED AT WEEKLY TEAM CONFERENCE - Bladder Same Bladder control device used: diaper Same Bladder medication used: NA Same accident frequency: 7-Ind - No accidents in the past 7 days - Bowel Same accident frequency: 7-Ind - No accidents in the past 7 days - Walking Same score based on distance walked: 0(N/A) Same score based on distance walked: 2(50-149ft) - Wheelchair Same score based on distance traveled: 0(N/A) FUNCTIONAL STATUS: - Self-Care A. Eating sup B. Grooming modA C. Bathing maxA D. Dressing - Upper Lev E. Dressing - Lower modA F. Toileting Lev - Sphincter Control G. Bladder control sup H. Bowel control Lev - Transfers Control I. Bed/Chair/Wheelchair maxA J. Toilet maxA K. Tub/Shower maxA - Locomotion L. Walk/Wheelchair (B) modA M. Stairs ADNO - Communication N. Comprehension (B) sup O. Expression (B) sup - Social Cognition P. Social Interaction Ind Q. Problem Solving sup R. Memory sup - Endurance Fair - Balance Poor - Safety Awareness Fair QI SCORES: - Self-Care A. Eating 06-Independent B. Oral hygiene 03-Partial/moderate assistance C. Toileting hygiene 02-Substantial/maximal assistance E. Shower/bathe self 03-Partial/moderate assistance F. Upper body dressing 03-Partial/moderate assistance G. Lower body dressing 03-Partial/moderate assistance H. Putting on/taking off footwear 03-Partial/moderate assistance - Mobility A. Roll left and right 03-Partial/moderate assistance B. Sit to lying 03-Partial/moderate assistance C. Lying to sitting on side of bed 03-Partial/moderate assistance D. Sit to stand 03-Partial/moderate assistance E. Chair/acl-bj-ahidt transfer 03-Partial/moderate assistance F. Toilet transfer 03-Partial/moderate assistance G. Car transfer 88-Not attempted due to medical condition or safety concerns I. Walk 10 feet 03-Partial/moderate assistance J. Walk 50 feet with two turns 02-Substantial/maximal assistance K. Walk 150 feet 88-Not attempted due to medical condition or safety concerns L. Walking 10 feet on uneven surfaces 88-Not attempted due to medical condition or safety concerns M. 1 step (curb) 88-Not attempted due to medical condition or safety concerns N. 4 steps 88-Not attempted due to medical condition or safety concerns O. 12 steps 88-Not attempted due to medical condition or safety concerns P. Picking up object 06-Independent R. Wheel 50 feet with two turns 88-Not attempted due to medical condition or safety concerns S. Wheel 150 feet 88-Not attempted due to medical condition or safety concerns - Bladder and Bowel Bladder continence 3-Incontinent daily Bowel continence 2-Frequently incontinent - Endurance Fair - Balance Fair - Safety Awareness Fair CURRENT FUNC. DEFICITS: Mobility, Endurance, Balance, Safety Awareness, and Self-Care SIGNATURE PANEL: (CDT)
[2019-05-29] MEDS: ATORVASTATIN 40 MG TAB PO SCH (20:27)
[2019-05-29] MEDS: MELATONIN 3 MG TABLET PO PRN (20:28)
[2019-05-29] MEDS: MIRTAZAPINE 15 MG TAB PO SCH (20:28)
[2019-05-29] MEDS: methocarbamoL 500 MG TAB PO PRN (22:07)
[2019-05-30] MEDS: PROMOD 30 ML DOSE PO SCH ×2 (08:00→20:00)
[2019-05-30] MEDS: CRANBERRY FRUIT EXTRACT 200 MG CAP PO SCH ×2 (08:18→21:34)
[2019-05-30] MEDS: LIDOCAINE 4% PATCH TOP SCH (08:18)
[2019-05-30] MEDS: FERROUS SULFATE 325 MG TAB PO SCH (08:19)
[2019-05-30] MEDS: FE SULF/FA/VIT B COMP & C TAB PO SCH (08:19)
[2019-05-30] MEDS: VITAMIN B COMPLEX 1 CAP PO SCH (08:19)
[2019-05-30] MEDS: ERYTHROMYCIN 1 APPL/1 GM TUBE EACH EYE SCH ×2 (08:19→21:36)
[2019-05-30] MEDS: PANTOPRAZOLE 40MG TABLET PO SCH (08:19)
[2019-05-30] MEDS: APIXABAN 2.5 MG TABLET PO SCH ×2 (08:19→21:34)
[2019-05-30] MEDS: HYDROCODONE/APAP 10/325 TAB PO PRN ×3 (08:20→19:15)
[2019-05-30] MEDS: KETOROLAC OPTHALMIC 5 ML BOT OPTH SCH (08:20)
[2019-05-30] MEDS: SERTRALINE HCL 100 MG TAB PO SCH (08:20)
[2019-05-30] MEDS: GABAPENTIN 300 MG CAP PO SCH ×2 (08:20→21:34)
--- NOTE | 2019-05-30 10:05 | P.RH.PN ---
Estimated Length of Stay: 17 Expected Discharge Date: 06/01/19 Discharge Disposition Plan: Home Family Support: Yes Assisted Goal: Mobility, Transfers, Self Care Vital Signs: Last Vital Signs Temp 96.8 F 05/30/19 07:08 Pulse 58 05/30/19 07:08 Resp 16 05/30/19 09:20 BP 121/68 05/30/19 07:08 Pulse Ox 96 05/30/19 09:20 Laboratory: Laboratory Last Values WBC 6.7 K/uL (4.3-10.9) D 05/29/19 05:49 RBC 3.49 M/uL (4.33-5.43) L 05/29/19 05:49 Hgb 10.9 g/dL (13.6-17.9) L 05/29/19 05:49 Hct 32.5 % (39.6-49.0) L 05/29/19 05:49 MCV 93.0 fL (80-100) 05/29/19 05:49 MCH 31.1 pg (27.0-35.0) 05/29/19 05:49 MCHC 33.4 g/dL (32.0-36.0) 05/29/19 05:49 RDW 14.1 % (12.1-15.2) 05/29/19 05:49 Plt Count 396 K/uL (152-406) 05/29/19 05:49 MPV 8.0 fL (7.6-11.3) 05/29/19 05:49 Neutrophils % 42.9 % (41.7-73.7) 05/29/19 05:49 Lymphocytes % 40.9 % (15.3-44.8) 05/29/19 05:49 Monocytes % 9.1 % (3.3-12.3) 05/29/19 05:49 Eosinophils % 5.7 % (0-4.4) H 05/29/19 05:49 Basophils % 1.4 % (0-1.3) H 05/29/19 05:49 Absolute Neutrophils 2.9 K/uL (1.8-8.0) 05/29/19 05:49 Absolute Lymphocytes 2.8 K/uL (0.7-4.9) 05/29/19 05:49 Absolute Monocytes 0.6 K/uL (0.1-1.3) 05/29/19 05:49 Absolute Eosinophils 0.4 K/uL (0-0.5) 05/29/19 05:49 Absolute Basophils 0.1 K/uL (0-0.5) 05/29/19 05:49 Sodium 139 mmol/L (136-145) 05/29/19 05:49 Potassium 4.1 mmol/L (3.5-5.1) 05/29/19 05:49 Chloride 107 mmol/L (98-107) 05/29/19 05:49 Carbon Dioxide 28 mmol/L (21-32) 05/29/19 05:49 BUN 29 mg/dL (7-18) H 05/29/19 05:49 Creatinine 0.82 mg/dL (0.55-1.3) 05/29/19 05:49 Estimated GFR > 90 mL/min (=/>90) 05/29/19 05:49 Glucose 90 mg/dL (74-106) 05/29/19 05:49 Calcium 9.1 mg/dL (8.5-10.1) 05/29/19 05:49 Magnesium 2.2 mg/dL (1.8-2.4) 05/29/19 05:49 Albumin 3.0 g/dL (3.4-5.0) L 05/29/19 05:49 Prealbumin 21.7 mg/dL (20-40) 05/29/19 05:49 Urine Color Yellow 05/17/19 17:35 Urine Appearance Turbid 05/17/19 17:35 Urine pH 6.0 (5.0-7.0) 05/17/19 17:35 Ur Specific [place] 1.015 (1.005-1.030) 05/17/19 17:35 Glucose (UA)(Auto) Negative (NEG) 05/17/19 17:35 Urine Ketones Negative (NEG) 05/17/19 17:35 Urine Blood 3+ (NEG) H 05/17/19 17:35 Urine Nitrite Negative (NEG) 05/17/19 17:35 Urine Bilirubin Negative (NEG) 05/17/19 17:35 Urine Urobilinogen 2.0 mg/dL (0.2-1.0) H 05/17/19 17:35 Ur Leukocyte Esterase 3+ (NEG) H 05/17/19 17:35 Urine RBC <5 /HPF (NONE SEEN) 05/17/19 17:35 Urine WBC Tntc /HPF (<5) H 05/17/19 17:35 Ur Squamous Epith Cells <5 /HPF (NONE SEEN) 05/17/19 17:35 Urine Bacteria Loaded /HPF (NONE SEEN) H 05/17/19 17:35 Urine Culture Reflexed Reflexed 05/17/19 17:35 Urine Total Protein 1+ (NEG) H 05/17/19 17:35 Weight: 131 lb 6.4 oz Wound Present: Yes Closed Surgical Incision Present: Yes Negative Pressure Wound Therapy Present: No Physician Update: Labs reviewed and are stable. He is making fair overall progress with occupational therapy. He is walking 500' with independence. He sounds more congested and has a chest x-ray pending. Functional Improvement: Patient has met all short-term goals at this time and is progressing well toward meeting all long-term goals. Patient has good work ethic and safety awareness. Patient's technique for transfers, balance, and gait tx. have all improved well over the course of tx. Speech Therapy Update: Patient obtained a 22/30 on the MOCA indicating a mild cognitive impairment characterized by impaired visuospatial skills, reduced attention and calculation, STM deficits, and decreased mental flexibility. Patient had an MBS study which revealed mild-moderate oropharyngeal dysphagia. Patient placed on a mechanical soft diet with nectar thickened liquids. Summary: Patient's care plan and skilled nursing goals have been reviewed and revised as necessary. Please see the Rehabilitation Signature page for all necessary signatures.
--- NOTE | 2019-05-30 11:31 | RAD REPORT ---
EXAM DESCRIPTION: RAD - Chest Single View - 05/30/2019 11:24 am CLINICAL HISTORY: increase congestion Chest pain. COMPARISON: Chest Single View dated 01/07/2019 FINDINGS: Portable technique limits examination quality. The lungs are grossly clear. The heart is normal in size. No acute fractures.Old bilateral rib fractu res and right clavicular fracture noted. IMPRESSION: No acute intrathoracic process suspected.
--- NOTE | 2019-05-30 14:34 | FAST ---
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 Srinivasan Carey M.D. 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 EATING: Not assessed/no information CODE: - ORAL HYGIENE: ORAL HYGIENE - STEP 1: Does the patient complete the activity by him/herself with no assistance (physical, verbal/nonverbal cueing, setup/clean-up)? No. ORAL HYGIENE - STEP 2: Does the patient need only setup/clean-up assistance from one helper? No. ORAL HYGIENE - STEP 3: Does the patient need only verbal/nonverbal cueing or touching/steadying/contact guard assistance fro m one helper? No. ORAL HYGIENE - STEP 4: Does the patient need physical assistance - for example lifting or trunk support from one helper - wi th the helper providing less than half of the effort? Yes. 1. [id number] ADMISSION PERFORMANCE: Partial/moderate assistance CODE: 03 TOILETING HYGIENE: Not assessed/no information CODE: - BATHING: SHOWER/BATHE SELF - STEP 1: Does the patient complete the activity by him/herself with no assistance (physical, verbal/nonverbal cueing, setup/clean-up)? No. SHOWER/BATHE SELF - STEP 2: Does the patient need only setup/clean-up assistance from one helper? No. SHOWER/BATHE SELF - STEP 3: Does the patient need only verbal/nonverbal cueing or touching/steadying/contact guard assistance fro m one helper? Yes. 1. [id number] ADMISSION PERFORMANCE: Supervision or touching assistance CODE: 04 DRESSING - UPPER BODY: DRESSING - UPPER BODY - STEP 1: Does the patient complete the activity by him/herself with no assistance (physical, verbal/nonverbal cueing, setup/clean-up)? No. DRESSING - UPPER BODY - STEP 2: Does the patient need only setup/clean-up assistance from one helper? No. DRESSING - UPPER BODY - STEP 3: Does the patient need only verbal/nonverbal cueing or touching/steadying/contact guard assistance fro m one helper? No. DRESSING - UPPER BODY - STEP 4: Does the patient need physical assistance - for example lifting or trunk support from one helper - wi th the helper providing less than half of the effort? Yes. 1. [id number] ADMISSION PERFORMANCE: Partial/moderate assistance CODE: 03 DRESSING - LOWER BODY: DRESSING - LOWER BODY - STEP 1: Does the patient complete the activity by him/herself with no assistance (physical, verbal/nonverbal cueing, setup/clean-up)? No. DRESSING - LOWER BODY - STEP 2: Does the patient need only setup/clean-up assistance from one helper? No. DRESSING - LOWER BODY - STEP 3: Does the patient need only verbal/nonverbal cueing or touching/steadying/contact guard assistance fro m one helper? Yes. 1. [id number] ADMISSION PERFORMANCE: Supervision or touching assistance CODE: 04 PUTTING ON/TAKING OFF FOOTWEAR: FOOTWEAR - STEP 1: Does the patient complete the activity by him/herself with no assistance (physical, verbal/nonverbal cueing, setup/clean-up)? No. FOOTWEAR - STEP 2: Does the patient need only setup/clean-up assistance from one helper? No. FOOTWEAR - STEP 3: Does the patient need only verbal/nonverbal cueing or touching/steadying/contact guard assistance fro m one helper? No. FOOTWEAR - STEP 4: Does the patient need physical assistance - for example lifting or trunk support from one helper - wi th the helper providing less than half of the effort? Yes. 1. [id number] ADMISSION PERFORMANCE: Partial/moderate assistance CODE: 03 DOES THE PATIENT USE A WHEELCHAIR/SCOOTER? CODE: EXPR INDICATE THE TYPE OF WHEELCHAIR/SCOOTER USED: CODE: EXPR INDICATE THE TYPE OF WHEELCHAIR/SCOOTER USED: CODE: EXPR BLADDER AND BOWEL: CODE: EXPR CODE: EXPR SIGNATURE PANEL: The following modified sections: 1. [id number] Admission Performance, 1. [id number] Admission Performance, 1. [id number] Admission Performance, 1. [id number] Admission Performance, 1. [id number] Admission Performance were [electronically] signed by SABRINA Clemens on SunMay 30 2019 14:34:27 [id number] (Central Daylight Time)
[2019-05-30] MEDS: ATORVASTATIN 40 MG TAB PO SCH (21:34)
[2019-05-30] MEDS: MIRTAZAPINE 15 MG TAB PO SCH (21:34)
[2019-05-30] MEDS: MELATONIN 3 MG TABLET PO PRN (21:35)
--- NOTE | 2019-05-31 02:24 | FAST ---
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 Srinivasan Carey M.D. 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 EATING: Not assessed/no information CODE: - ORAL HYGIENE: Not assessed/no information CODE: - TOILETING HYGIENE: TOILETING HYGIENE - STEP 1: Does the patient complete the activity by him/herself with no assistance (physical, verbal/nonverbal cueing, setup/clean-up)? No. TOILETING HYGIENE - STEP 2: Does the patient need only setup/clean-up assistance from one helper? No. TOILETING HYGIENE - STEP 3: Does the patient need only verbal/nonverbal cueing or touching/steadying/contact guard assistance fro m one helper? Yes. 1. [id number] ADMISSION PERFORMANCE: Supervision or touching assistance CODE: 04 BATHING: Not assessed/no information CODE: - DRESSING - UPPER BODY: Not assessed/no information CODE: - DRESSING - LOWER BODY: Not assessed/no information CODE: - PUTTING ON/TAKING OFF FOOTWEAR: Not assessed/no information CODE: - ROLL LEFT AND RIGHT: ROLL LEFT AND RIGHT - STEP 1: Does the patient complete the activity by him/herself with no assistance (physical, verbal/nonverbal cueing, setup/clean-up)? No. ROLL LEFT AND RIGHT - STEP 2: Does the patient need only setup/clean-up assistance from one helper? No. ROLL LEFT AND RIGHT - STEP 3: Does the patient need only verbal/nonverbal cueing or touching/steadying/contact guard assistance fro m one helper? Yes. 1. [id number] ADMISSION PERFORMANCE: Supervision or touching assistance CODE: 04 SIT TO LYING: SIT TO LYING - STEP 1: Does the patient complete the activity by him/herself with no assistance (physical, verbal/nonverbal cueing, setup/clean-up)? No. SIT TO LYING - STEP 2: Does the patient need only setup/clean-up assistance from one helper? No. SIT TO LYING - STEP 3: Does the patient need only verbal/nonverbal cueing or touching/steadying/contact guard assistance fro m one helper? Yes. 1. [id number] ADMISSION PERFORMANCE: Supervision or touching assistance CODE: 04 LYING TO SITTING: LYING TO SITTING ON SIDE OF BED - STEP 1: Does the patient complete the activity by him/herself with no assistance (physical, verbal/nonverbal cueing, setup/clean-up)? No. LYING TO SITTING ON SIDE OF BED - STEP 2: Does the patient need only setup/clean-up assistance from one helper? No. LYING TO SITTING ON SIDE OF BED - STEP 3: Does the patient need only verbal/nonverbal cueing or touching/steadying/contact guard assistance fro m one helper? Yes. 1. [id number] ADMISSION PERFORMANCE: Supervision or touching assistance CODE: 04 SIT TO STAND: SIT TO STAND - STEP 1: Does the patient complete the activity by him/herself with no assistance (physical, verbal/nonverbal cueing, setup/clean-up)? No. SIT TO STAND - STEP 2: Does the patient need only setup/clean-up assistance from one helper? No. SIT TO STAND - STEP 3: Does the patient need only verbal/nonverbal cueing or touching/steadying/contact guard assistance fro m one helper? Yes. 1. [id number] ADMISSION PERFORMANCE: Supervision or touching assistance CODE: 04 TRANSFERS: BED, CHAIR: CHAIR/[id number] TRANSFER - STEP 1: Does the patient complete the activity by him/herself with no assistance (physical, verbal/nonverbal cueing, setup/clean-up)? No. CHAIR/SMP-UI-CAMRA TRANSFER - STEP 2: Does the patient need only setup/clean-up assistance from one helper? No. CHAIR/[id number] TRANSFER - STEP 3: Does the patient need only verbal/nonverbal cueing or touching/steadying/contact guard assistance fro m one helper? Yes. 1. [id number] ADMISSION PERFORMANCE: Supervision or touching assistance CODE: 04 TRANSFER TOILET: TOILET TRANSFER - STEP 1: Does the patient complete the activity by him/herself with no assistance (physical, verbal/nonverbal cueing, setup/clean-up)? No. TOILET TRANSFER - STEP 2: Does the patient need only setup/clean-up assistance from one helper? No. TOILET TRANSFER - STEP 3: Does the patient need only verbal/nonverbal cueing or touching/steadying/contact guard assistance fro m one helper? Yes. 1. [id number] ADMISSION PERFORMANCE: Supervision or touching assistance CODE: 04 TRANSFERS: CAR: Not assessed/no information CODE: - WALK 10 FEET: Not assessed/no information CODE: - 1 STEP (CURB): Not assessed/no information CODE: - PICKING UP OBJECT: Not assessed/no information CODE: - DOES THE PATIENT USE A WHEELCHAIR/SCOOTER? CODE: EXPR WHEEL 50 FEET WITH TWO TURNS: Not assessed/no information CODE: - INDICATE THE TYPE OF WHEELCHAIR/SCOOTER USED: CODE: EXPR WHEEL 150 FEET: Not assessed/no information CODE: - INDICATE THE TYPE OF WHEELCHAIR/SCOOTER USED: CODE: EXPR BLADDER AND BOWEL: H350. BLADDER CONTINENCE (3-DAY ASSESSMENT PERIOD): Always incontinent CODE: 4 H400. BOWEL CONTINENCE (3-DAY ASSESSMENT PERIOD): Occasionally incontinent (one episode of bowel incontinence) CODE: 1
[2019-05-31] MEDS: HYDROCODONE/APAP 10/325 TAB PO PRN ×4 (05:34→23:10)
[2019-05-31] MEDS: PANTOPRAZOLE 40MG TABLET PO SCH (07:47)
[2019-05-31] MEDS: LIDOCAINE 4% PATCH TOP SCH (07:47)
[2019-05-31] MEDS: ERYTHROMYCIN 1 APPL/1 GM TUBE EACH EYE SCH ×2 (07:49→19:31)
[2019-05-31] MEDS: KETOROLAC OPTHALMIC 5 ML BOT OPTH SCH (07:49)
[2019-05-31] MEDS: PROMOD 30 ML DOSE PO SCH ×2 (08:00→19:31)
[2019-05-31] MEDS: FE SULF/FA/VIT B COMP & C TAB PO SCH (09:07)
[2019-05-31] MEDS: CRANBERRY FRUIT EXTRACT 200 MG CAP PO SCH ×2 (09:07→19:30)
[2019-05-31] MEDS: SERTRALINE HCL 100 MG TAB PO SCH (09:07)
[2019-05-31] MEDS: GABAPENTIN 300 MG CAP PO SCH ×2 (09:07→19:31)
[2019-05-31] MEDS: FERROUS SULFATE 325 MG TAB PO SCH (09:08)
[2019-05-31] MEDS: VITAMIN B COMPLEX 1 CAP PO SCH (09:08)
[2019-05-31] MEDS: APIXABAN 2.5 MG TABLET PO SCH ×2 (09:08→19:30)
[2019-05-31] MEDS: methocarbamoL 500 MG TAB PO PRN ×2 (11:12→19:30)
[2019-05-31] MEDS: ATORVASTATIN 40 MG TAB PO SCH (19:30)
[2019-05-31] MEDS: TRAZODONE 50 MG TABLET PO PRN (19:30)
[2019-05-31] MEDS: DOCUSATE NA/SENNA CONC 1 TAB PO PRN (19:30)
[2019-05-31] MEDS: MIRTAZAPINE 15 MG TAB PO SCH (19:31)
[2019-06-01] MEDS: PROMOD 30 ML DOSE PO SCH ×2 (08:00→20:00)
[2019-06-01] MEDS: FE SULF/FA/VIT B COMP & C TAB PO SCH (08:11)
[2019-06-01] MEDS: GABAPENTIN 300 MG CAP PO SCH ×2 (08:11→20:25)
[2019-06-01] MEDS: CRANBERRY FRUIT EXTRACT 200 MG CAP PO SCH ×2 (08:11→20:23)
[2019-06-01] MEDS: VITAMIN B COMPLEX 1 CAP PO SCH (08:11)
[2019-06-01] MEDS: FERROUS SULFATE 325 MG TAB PO SCH (08:11)
[2019-06-01] MEDS: LIDOCAINE 4% PATCH TOP SCH (08:11)
[2019-06-01] MEDS: SERTRALINE HCL 100 MG TAB PO SCH (08:12)
[2019-06-01] MEDS: PANTOPRAZOLE 40MG TABLET PO SCH (08:12)
[2019-06-01] MEDS: APIXABAN 2.5 MG TABLET PO SCH ×2 (08:12→20:23)
[2019-06-01] MEDS: KETOROLAC OPTHALMIC 5 ML BOT OPTH SCH (08:13)
[2019-06-01] MEDS: ERYTHROMYCIN 1 APPL/1 GM TUBE EACH EYE SCH ×2 (08:13→20:22)
[2019-06-01] MEDS: HYDROCODONE/APAP 10/325 TAB PO PRN ×2 (12:57→20:24)
[2019-06-01] MEDS: methocarbamoL 500 MG TAB PO PRN (16:14)
[2019-06-01] MEDS: MIRTAZAPINE 15 MG TAB PO SCH (20:22)
[2019-06-01] MEDS: ATORVASTATIN 40 MG TAB PO SCH (20:23)
[2019-06-01] MEDS: TRAZODONE 50 MG TABLET PO PRN (21:05)
[2019-06-02] MEDS: HYDROCODONE/APAP 10/325 TAB PO PRN ×5 (05:16→23:37)
[2019-06-02] MEDS: LIDOCAINE 4% PATCH TOP SCH (07:03)
[2019-06-02] MEDS: CRANBERRY FRUIT EXTRACT 200 MG CAP PO SCH ×2 (07:06→21:24)
[2019-06-02] MEDS: VITAMIN B COMPLEX 1 CAP PO SCH (07:06)
[2019-06-02] MEDS: PANTOPRAZOLE 40MG TABLET PO SCH (07:06)
[2019-06-02] MEDS: FERROUS SULFATE 325 MG TAB PO SCH (07:06)
[2019-06-02] MEDS: SERTRALINE HCL 100 MG TAB PO SCH (07:06)
[2019-06-02] MEDS: GABAPENTIN 300 MG CAP PO SCH ×2 (07:07→21:25)
[2019-06-02] MEDS: ERYTHROMYCIN 1 APPL/1 GM TUBE EACH EYE SCH ×2 (07:07→21:26)
[2019-06-02] MEDS: KETOROLAC OPTHALMIC 5 ML BOT OPTH SCH (07:07)
[2019-06-02] MEDS: APIXABAN 2.5 MG TABLET PO SCH ×2 (07:07→21:24)
[2019-06-02] MEDS: FE SULF/FA/VIT B COMP & C TAB PO SCH (07:08)
[2019-06-02] MEDS: PROMOD 30 ML DOSE PO SCH ×2 (07:08→20:00)
--- NOTE | 2019-06-02 14:21 | FAST ---
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 Srinivasan Carey M.D. 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 EATING: Not assessed/no information CODE: - ORAL HYGIENE: ORAL HYGIENE - STEP 1: Does the patient complete the activity by him/herself with no assistance (physical, verbal/nonverbal cueing, setup/clean-up)? No. ORAL HYGIENE - STEP 2: Does the patient need only setup/clean-up assistance from one helper? No. ORAL HYGIENE - STEP 3: Does the patient need only verbal/nonverbal cueing or touching/steadying/contact guard assistance fro m one helper? No. ORAL HYGIENE - STEP 4: Does the patient need physical assistance - for example lifting or trunk support from one helper - wi th the helper providing less than half of the effort? No. ORAL HYGIENE - STEP 5: Does the patient need physical assistance - for example lifting or trunk support from one helper - wi th the helper providing more than half of the effort? Yes. 1. [id number] ADMISSION PERFORMANCE: Substantial/maximal assistance CODE: 02 TOILETING HYGIENE: Not assessed/no information CODE: - BATHING: SHOWER/BATHE SELF - STEP 1: Does the patient complete the activity by him/herself with no assistance (physical, verbal/nonverbal cueing, setup/clean-up)? No. SHOWER/BATHE SELF - STEP 2: Does the patient need only setup/clean-up assistance from one helper? No. SHOWER/BATHE SELF - STEP 3: Does the patient need only verbal/nonverbal cueing or touching/steadying/contact guard assistance fro m one helper? Yes. 1. [id number] ADMISSION PERFORMANCE: Supervision or touching assistance CODE: 04 DRESSING - UPPER BODY: DRESSING - UPPER BODY - STEP 1: Does the patient complete the activity by him/herself with no assistance (physical, verbal/nonverbal cueing, setup/clean-up)? No. DRESSING - UPPER BODY - STEP 2: Does the patient need only setup/clean-up assistance from one helper? No. DRESSING - UPPER BODY - STEP 3: Does the patient need only verbal/nonverbal cueing or touching/steadying/contact guard assistance fro m one helper? No. DRESSING - UPPER BODY - STEP 4: Does the patient need physical assistance - for example lifting or trunk support from one helper - wi th the helper providing less than half of the effort? Yes. 1. [id number] ADMISSION PERFORMANCE: Partial/moderate assistance CODE: 03 DRESSING - LOWER BODY: DRESSING - LOWER BODY - STEP 1: Does the patient complete the activity by him/herself with no assistance (physical, verbal/nonverbal cueing, setup/clean-up)? No. DRESSING - LOWER BODY - STEP 2: Does the patient need only setup/clean-up assistance from one helper? No. DRESSING - LOWER BODY - STEP 3: Does the patient need only verbal/nonverbal cueing or touching/steadying/contact guard assistance fro m one helper? Yes. 1. [id number] ADMISSION PERFORMANCE: Supervision or touching assistance CODE: 04 PUTTING ON/TAKING OFF FOOTWEAR: FOOTWEAR - STEP 1: Does the patient complete the activity by him/herself with no assistance (physical, verbal/nonverbal cueing, setup/clean-up)? No. FOOTWEAR - STEP 2: Does the patient need only setup/clean-up assistance from one helper? No. FOOTWEAR - STEP 3: Does the patient need only verbal/nonverbal cueing or touching/steadying/contact guard assistance fro m one helper? Yes. 1. ADMISSION PERFORMANCE: Supervision or touching assistance CODE: 04 DOES THE PATIENT USE A WHEELCHAIR/SCOOTER? CODE: EXPR INDICATE THE TYPE OF WHEELCHAIR/SCOOTER USED: CODE: EXPR INDICATE THE TYPE OF WHEELCHAIR/SCOOTER USED: CODE: EXPR BLADDER AND BOWEL: CODE: EXPR CODE: EXPR SIGNATURE PANEL: The following modified sections: 1. [id number] Admission Performance, 1. [id number] Admission Performance, 1. [id number] Admission Performance, 1. [id number] Admission Performance, 1. [id number] Admission Performance, 1. [id number] Admission Performance were [electronically] signed by SABRINA Clemens on SunJun 02 2019 14:20:07 GMT-0500 (Central Daylight Time)
--- NOTE | 2019-06-02 18:42 | R.PN ---
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 Pt denied any depression. Functional activities and transfers done with moderate to maximum assistance. Ambulated 1000' with independence using rolling walker. Up and down 15 steps with standby assistance. Patient states that pain is under control. WBC 6.7, Hgb 10.9, prealbumin 21.7. He is on promod. Speech expression done with modified independence. Ambulated 500' with independence using a rolling w alker. Up and down 15 steps with standby assistance. Self-propelled wheelchair 200' with standby assi stance. VITAL SIGNS Temperature: 97.4 F SBP/DBP: 113/67 Pulse: 60 Resp: 16 MEDICATION ALLERGIES: No Known Drug Allergies (NKDA) ENVIRONMENTAL ALLERGIES: - Substance Allergies None Known - Other Allergies None Known NURSING: - Shower allowing shower - Bladder care per protocol - Skin care per protocol ACTIVITIES OOB only with supervision THERAPIES: - Orthotics/Prosthetics Orthotic Evaluation. Splinting/Casting. - Dietary and Nutrition Adequate Nutrition. Nutritional Education. Nutritional Supplements. PHYSICAL EXAM - Gen Alert and awake Lying in bed No apparent distress Oriented to: person, time, and place - Skin No skin breakdown. Normacephalic - Eyes No abnormalities - ENMT No abnormalities - Neck Burton J cervical collar is in place. - CVS RRR - Resp Clear to auscultation - Abd Soft - GI + bowel sounds Deferred - No abnormalities - Ext No significant edema - MSK 4/5 weakness in both lower extremities. - Neuro No focal deficits - Psych No abnormalities ASSESSMENT: Pt. is a 64 yo Right-handed male.On 05/13/2019 he was admitted [facility] care [facility] with d iagnosis SEVERE CERVICAL STENOSIS AND CORD COMPRESSION.His impairment category is Spinal Cord Dysfunc tion 04 - Other Non-traumatic Spinal Cord Dysfunction (04.130).Pre-morbidly, Pt. was independent/mod -I in Locomotion, Balance, Safety Awareness, Transfers Control, Sphincter Control, Social Cognition, Self-Care, Communication, and Endurance; and he had good Locomotion, Balance, Safety Awareness, Socia l Cognition, Transfers Control, Self-Care, Sphincter Control, Communication, and Endurance.Currently, he has deficits of Locomotion, Safety Awareness, Balance, Transfers Control, Self-Care, Communicatio n, and Endurance.Pt. is now referred to [facility] for acute in-patient rehabi litation in order to maximize patient's functional independence in activities of daily living, streng th, ROM, and mobility.- Rehab Goal Patient has realistic goal of being discharged at assistance level 6-Jett to reside at Home with Fam tara/Relatives. MDM/PLAN: - Physical Therapy Gait dysfunction - to improve, our physical therapists will perform initial evaluation of pt's statu s upon admission and devise an individualized program for Gait Training, and Wheel Chair mobility Inability to transfer - to improve, our physical therapists will perform initial evaluation of pt's status upon admission and devise an individualized program for Bed mobility Need for home safety evaluation - to improve, our physical therapists will perform initial evaluatio n of pt's status upon admission and devise an individualized program for Home Evaluation Need in caregiver upon discharge - to improve, our physical therapists will perform initial evaluati on of pt's status upon admission and devise an individualized program for Caregiver Training New precaution - to improve, our physical therapists will perform initial evaluation of pt's status upon admission and devise an individualized program for Patient precaution education Edema - to improve, our physical therapists will perform initial evaluation of pt's status upon admi ssion and devise an individualized program for Elevation Training, and Lymphedema Therapy Poor balance - to improve, our physical therapists will perform initial evaluation of pt's status up on admission and devise an individualized program for Balance Training Poor endurance - to improve, our physical therapists will perform initial evaluation of pt's status upon admission and devise an individualized program for Endurance Training Weakness - to improve, our physical therapists will perform initial evaluation of pt's status upon a dmission and devise an individualized program for Aquatic Therapy, Neuromuscular Reeducation, and Str engthening Achieving independence - to improve, our physical therapists will perform initial evaluation of pt's status upon admission and devise an individualized program for Community Reintegration Activities - Occupational Therapy ADL deficits - to improve, our occupation therapists will perform initial evaluation of pt's status upon admission and devise an individualized program for Bathing, Bed mobility, Community Reintegratio n, Cooking, Dressing, Eating, Fine Motor Skills, Grooming, Homemaking, Kitchen Mobility, Laundry, Pat ient Education, Safety Awareness, Splinting - Positioning, Transfers(Toilet, Tub, Shower), and Wheel Chair Management Need for pharmacy care coordinator - to improve, our occupation therapists will perform initial evaluation of pt's status upon admission and devise an individualized program for Caregiver Training Weakness - to improve, our occupation therapists will perform initial evaluation of pt's status upon admission and devise an individualized program for Aquatic Therapy, Balance, Endurance, UE ROM, and UE strengthening - Other See attached MAR (Medication Administration Record) - Diet Type Continue Regular - Diet - Liquid Texture Continue Regular - Tube Feed Continue N/A - Bladder care per protocol - Skin care per protocol - Diet - Solid Texture Continue Regular - Shower allowing shower FUNCTIONAL STATUS: UPDATED AT WEEKLY TEAM CONFERENCE - Bladder Same Bladder control device used: diaper Same Bladder medication used: NA Same accident frequency: 7-Ind - No accidents in the past 7 days - Bowel Same accident frequency: 7-Ind - No accidents in the past 7 days - Walking Same score based on distance walked: 0(N/A) Same score based on distance walked: 2(50-149ft) - Wheelchair Same score based on distance traveled: 0(N/A) FUNCTIONAL STATUS: - Self-Care A. Eating sup B. Grooming modA C. Bathing maxA D. Dressing - Upper Lev E. Dressing - Lower modA F. Toileting Lev - Sphincter Control G. Bladder control sup H. Bowel control Lev - Transfers Control I. Bed/Chair/Wheelchair maxA J. Toilet maxA K. Tub/Shower maxA - Locomotion L. Walk/Wheelchair (B) modA M. Stairs ADNO - Communication N. Comprehension (B) sup O. Expression (B) sup - Social Cognition P. Social Interaction Ind Q. Problem Solving sup R. Memory sup - Endurance Fair - Balance Poor - Safety Awareness Fair QI SCORES: - Self-Care A. Eating 06-Independent B. Oral hygiene 03-Partial/moderate assistance C. Toileting hygiene 02-Substantial/maximal assistance E. Shower/bathe self 03-Partial/moderate assistance F. Upper body dressing 03-Partial/moderate assistance G. Lower body dressing 03-Partial/moderate assistance H. Putting on/taking off footwear 03-Partial/moderate assistance - Mobility A. Roll left and right 03-Partial/moderate assistance B. Sit to lying 03-Partial/moderate assistance C. Lying to sitting on side of bed 03-Partial/moderate assistance D. Sit to stand 03-Partial/moderate assistance E. Chair/stb-oh-xjuty transfer 03-Partial/moderate assistance F. Toilet transfer 03-Partial/moderate assistance G. Car transfer 88-Not attempted due to medical condition or safety concerns I. Walk 10 feet 03-Partial/moderate assistance J. Walk 50 feet with two turns 02-Substantial/maximal assistance K. Walk 150 feet 88-Not attempted due to medical condition or safety concerns L. Walking 10 feet on uneven surfaces 88-Not attempted due to medical condition or safety concerns M. 1 step (curb) 88-Not attempted due to medical condition or safety concerns N. 4 steps 88-Not attempted due to medical condition or safety concerns O. 12 steps 88-Not attempted due to medical condition or safety concerns P. Picking up object 06-Independent R. Wheel 50 feet with two turns 88-Not attempted due to medical condition or safety concerns S. Wheel 150 feet 88-Not attempted due to medical condition or safety concerns - Bladder and Bowel Bladder continence 3-Incontinent daily Bowel continence 2-Frequently incontinent - Endurance Fair - Balance Fair - Safety Awareness Fair CURRENT FUNC. DEFICITS: Mobility, Endurance, Balance, Safety Awareness, and Self-Care SIGNATURE PANEL: (CDT)
[2019-06-02] MEDS: MIRTAZAPINE 15 MG TAB PO SCH (21:24)
[2019-06-02] MEDS: ATORVASTATIN 40 MG TAB PO SCH (21:24)
[2019-06-02] MEDS: MELATONIN 3 MG TABLET PO PRN (21:25)
[2019-06-02] MEDS: DOCUSATE NA/SENNA CONC 1 TAB PO PRN (21:26)
[2019-06-02] MEDS: methocarbamoL 500 MG TAB PO PRN (21:32)
[2019-06-03] MEDS: HYDROCODONE/APAP 10/325 TAB PO PRN ×3 (05:02→19:13)
[2019-06-03] MEDS: PROMOD 30 ML DOSE PO SCH ×2 (08:00→19:11)
[2019-06-03] MEDS: methocarbamoL 500 MG TAB PO PRN (08:30)
[2019-06-03] MEDS: LIDOCAINE 4% PATCH TOP SCH (08:30)
[2019-06-03] MEDS: FERROUS SULFATE 325 MG TAB PO SCH (08:31)
[2019-06-03] MEDS: GABAPENTIN 300 MG CAP PO SCH ×2 (08:32→19:11)
[2019-06-03] MEDS: CRANBERRY FRUIT EXTRACT 200 MG CAP PO SCH ×2 (08:32→19:11)
[2019-06-03] MEDS: APIXABAN 2.5 MG TABLET PO SCH ×2 (08:32→19:11)
[2019-06-03] MEDS: PANTOPRAZOLE 40MG TABLET PO SCH (08:33)
[2019-06-03] MEDS: FE SULF/FA/VIT B COMP & C TAB PO SCH (08:33)
[2019-06-03] MEDS: VITAMIN B COMPLEX 1 CAP PO SCH (08:33)
[2019-06-03] MEDS: SERTRALINE HCL 100 MG TAB PO SCH (08:33)
[2019-06-03] MEDS: ERYTHROMYCIN 1 APPL/1 GM TUBE EACH EYE SCH ×2 (08:34→19:11)
[2019-06-03] MEDS: KETOROLAC OPTHALMIC 5 ML BOT OPTH SCH (08:34)
--- NOTE | 2019-06-03 15:47 | FAST ---
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 Srinivasan Carey M.D. 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 EATING: EATING - STEP 1: Does the patient complete the activity by him/herself with no assistance (physical, verbal/nonverbal cueing, setup/clean-up)? No. EATING - STEP 2: Does the patient need only setup/clean-up assistance from one helper? Yes. 1. [id number] ADMISSION PERFORMANCE: Setup or clean-up assistance CODE: 05 ORAL HYGIENE: ORAL HYGIENE - STEP 1: Does the patient complete the activity by him/herself with no assistance (physical, verbal/nonverbal cueing, setup/clean-up)? No. ORAL HYGIENE - STEP 2: Does the patient need only setup/clean-up assistance from one helper? No. ORAL HYGIENE - STEP 3: Does the patient need only verbal/nonverbal cueing or touching/steadying/contact guard assistance fro m one helper? Yes. 1. [id number] ADMISSION PERFORMANCE: Supervision or touching assistance CODE: 04 TOILETING HYGIENE: TOILETING HYGIENE - STEP 1: Does the patient complete the activity by him/herself with no assistance (physical, verbal/nonverbal cueing, setup/clean-up)? No. TOILETING HYGIENE - STEP 2: Does the patient need only setup/clean-up assistance from one helper? No. TOILETING HYGIENE - STEP 3: Does the patient need only verbal/nonverbal cueing or touching/steadying/contact guard assistance fro m one helper? Yes. 1. [id number] ADMISSION PERFORMANCE: Supervision or touching assistance CODE: 04 BATHING: Not assessed/no information CODE: - DRESSING - UPPER BODY: DRESSING - UPPER BODY - STEP 1: Does the patient complete the activity by him/herself with no assistance (physical, verbal/nonverbal cueing, setup/clean-up)? No. DRESSING - UPPER BODY - STEP 2: Does the patient need only setup/clean-up assistance from one helper? Yes. 1. [id number] ADMISSION PERFORMANCE: Setup or clean-up assistance CODE: 05 DRESSING - LOWER BODY: DRESSING - LOWER BODY - STEP 1: Does the patient complete the activity by him/herself with no assistance (physical, verbal/nonverbal cueing, setup/clean-up)? No. DRESSING - LOWER BODY - STEP 2: Does the patient need only setup/clean-up assistance from one helper? No. DRESSING - LOWER BODY - STEP 3: Does the patient need only verbal/nonverbal cueing or touching/steadying/contact guard assistance fro m one helper? Yes. 1. ADMISSION PERFORMANCE: Supervision or touching assistance CODE: 04 PUTTING ON/TAKING OFF FOOTWEAR: FOOTWEAR - STEP 1: Does the patient complete the activity by him/herself with no assistance (physical, verbal/nonverbal cueing, setup/clean-up)? No. FOOTWEAR - STEP 2: Does the patient need only setup/clean-up assistance from one helper? Yes. 1. ADMISSION PERFORMANCE: Setup or clean-up assistance CODE: 05 DOES THE PATIENT USE A WHEELCHAIR/SCOOTER? CODE: EXPR INDICATE THE TYPE OF WHEELCHAIR/SCOOTER USED: CODE: EXPR INDICATE THE TYPE OF WHEELCHAIR/SCOOTER USED: CODE: EXPR BLADDER AND BOWEL: H350. BLADDER CONTINENCE (3-DAY ASSESSMENT PERIOD): Always incontinent CODE: 4 H400. BOWEL CONTINENCE (3-DAY ASSESSMENT PERIOD): Occasionally incontinent (one episode of bowel incontinence) CODE: 1 SIGNATURE PANEL: The following modified sections: 1. [id number] Admission Performance, 1. [id number] Admission Performance, 1. [id number] Admission Performance, 1. [id number] Admission Performance, 1. [id number] Admission Performance, 1. [id number] Admission Performance, 1. [id number] Admission Performance, 1. [id number] Admission Performance , 1. [id number] Admission Performance, H350. Bladder Continence (3-day assessment period), H400. Bowel C ontinence (3-day assessment period), H350. Bladder Continence (3-day assessment period), H400. Bowel Continence (3-day assessment period), H400. Bowel Continence (3-day assessment period) were [electron ically] signed by Merlyn Snell C.N.A. on SunJun 03 2019 15:46:27 GMT-0500 (Central Daylight Time)
--- NOTE | 2019-06-03 17:53 | R.PN ---
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 Pt denied any depression. Functional activities and transfers done with moderate to maximum assistance. Ambulated 1000' with independence using rolling walker. Up and down 15 steps with standby assistance. Patient states that pain is under control. WBC 6.7, Hgb 10.9, prealbumin 21.7. He is on promod. Speech expression done with modified independence. Ambulated 500' with independence using a rolling w alker. Up and down 15 steps with standby assistance. Self-propelled wheelchair 200' with standby assi stance. VITAL SIGNS Temperature: 97.4 F SBP/DBP: 120/69 Pulse: 62 Resp: 14 MEDICATION ALLERGIES: No Known Drug Allergies (NKDA) ENVIRONMENTAL ALLERGIES: - Substance Allergies None Known - Other Allergies None Known NURSING: - Shower allowing shower - Bladder care per protocol - Skin care per protocol ACTIVITIES OOB only with supervision THERAPIES: - Orthotics/Prosthetics Orthotic Evaluation. Splinting/Casting. - Dietary and Nutrition Adequate Nutrition. Nutritional Education. Nutritional Supplements. PHYSICAL EXAM - Gen Alert and awake Lying in bed No apparent distress Oriented to: person, time, and place - Skin No skin breakdown. Normacephalic - Eyes No abnormalities - ENMT No abnormalities - Neck Webster J cervical collar is in place. - CVS RRR - Resp Clear to auscultation - Abd Soft - GI + bowel sounds Deferred - No abnormalities - Ext No significant edema - MSK 4/5 weakness in both lower extremities. - Neuro No focal deficits - Psych No abnormalities ASSESSMENT: Pt. is a 64 yo Right-handed male.On 05/13/2019 [facility] with [facility] iagnosis SEVERE CERVICAL STENOSIS AND CORD COMPRESSION.His impairment category is Spinal Cord Dysfunc tion 04 - Other Non-traumatic Spinal Cord Dysfunction (04.130).Pre-morbidly, Pt. was independent/mod -I in Locomotion, Balance, Safety Awareness, Transfers Control, Sphincter Control, Social Cognition, Self-Care, Communication, and Endurance; and he had good Locomotion, Balance, Safety Awareness, Socia l Cognition, Transfers Control, Self-Care, Sphincter Control, Communication, and Endurance.Currently, he has deficits of Locomotion, Safety Awareness, Balance, Transfers Control, Self-Care, Communicatio n, and Endurance.Pt. is now referred to [facility] for acute in-patient rehabi litation in order to maximize patient's functional independence in activities of daily living, streng th, ROM, and mobility.- Rehab Goal Patient has realistic goal of being discharged at assistance level 6-Jett to reside at Home with Fam tara/Relatives. MDM/PLAN: - Physical Therapy Gait dysfunction - to improve, our physical therapists will perform initial evaluation of pt's statu s upon admission and devise an individualized program for Gait Training, and Wheel Chair mobility Inability to transfer - to improve, our physical therapists will perform initial evaluation of pt's status upon admission and devise an individualized program for Bed mobility Need for home safety evaluation - to improve, our physical therapists will perform initial evaluatio n of pt's status upon admission and devise an individualized program for Home Evaluation Need in caregiver upon discharge - to improve, our physical therapists will perform initial evaluati on of pt's status upon admission and devise an individualized program for Caregiver Training New precaution - to improve, our physical therapists will perform initial evaluation of pt's status upon admission and devise an individualized program for Patient precaution education Edema - to improve, our physical therapists will perform initial evaluation of pt's status upon admi ssion and devise an individualized program for Elevation Training, and Lymphedema Therapy Poor balance - to improve, our physical therapists will perform initial evaluation of pt's status up on admission and devise an individualized program for Balance Training Poor endurance - to improve, our physical therapists will perform initial evaluation of pt's status upon admission and devise an individualized program for Endurance Training Weakness - to improve, our physical therapists will perform initial evaluation of pt's status upon a dmission and devise an individualized program for Aquatic Therapy, Neuromuscular Reeducation, and Str engthening Achieving independence - to improve, our physical therapists will perform initial evaluation of pt's status upon admission and devise an individualized program for Community Reintegration Activities - Occupational Therapy ADL deficits - to improve, our occupation therapists will perform initial evaluation of pt's status upon admission and devise an individualized program for Bathing, Bed mobility, Community Reintegratio n, Cooking, Dressing, Eating, Fine Motor Skills, Grooming, Homemaking, Kitchen Mobility, Laundry, Pat ient Education, Safety Awareness, Splinting - Positioning, Transfers(Toilet, Tub, Shower), and Wheel Chair Management Need for care clinician - to improve, our occupation therapists will perform initial evaluation of pt's status upon admission and devise an individualized program for Caregiver Training Weakness - to improve, our occupation therapists will perform initial evaluation of pt's status upon admission and devise an individualized program for Aquatic Therapy, Balance, Endurance, UE ROM, and UE strengthening - Other See attached MAR (Medication Administration Record) - Diet Type Continue Regular - Diet - Liquid Texture Continue Regular - Tube Feed Continue N/A - Bladder care per protocol - Skin care per protocol - Diet - Solid Texture Continue Regular - Shower allowing shower FUNCTIONAL STATUS: UPDATED AT WEEKLY TEAM CONFERENCE - Bladder Same Bladder control device used: diaper Same Bladder medication used: NA Same accident frequency: 7-Ind - No accidents in the past 7 days - Bowel Same accident frequency: 7-Ind - No accidents in the past 7 days - Walking Same score based on distance walked: 0(N/A) Same score based on distance walked: 2(50-149ft) - Wheelchair Same score based on distance traveled: 0(N/A) FUNCTIONAL STATUS: - Self-Care A. Eating sup B. Grooming modA C. Bathing maxA D. Dressing - Upper Lev E. Dressing - Lower modA F. Toileting Lev - Sphincter Control G. Bladder control sup H. Bowel control Lev - Transfers Control I. Bed/Chair/Wheelchair maxA J. Toilet maxA K. Tub/Shower maxA - Locomotion L. Walk/Wheelchair (B) modA M. Stairs ADNO - Communication N. Comprehension (B) sup O. Expression (B) sup - Social Cognition P. Social Interaction Ind Q. Problem Solving sup R. Memory sup - Endurance Fair - Balance Poor - Safety Awareness Fair QI SCORES: - Self-Care A. Eating 06-Independent B. Oral hygiene 03-Partial/moderate assistance C. Toileting hygiene 02-Substantial/maximal assistance E. Shower/bathe self 03-Partial/moderate assistance F. Upper body dressing 03-Partial/moderate assistance G. Lower body dressing 03-Partial/moderate assistance H. Putting on/taking off footwear 03-Partial/moderate assistance - Mobility A. Roll left and right 03-Partial/moderate assistance B. Sit to lying 03-Partial/moderate assistance C. Lying to sitting on side of bed 03-Partial/moderate assistance D. Sit to stand 03-Partial/moderate assistance E. Chair/xgz-zo-eojno transfer 03-Partial/moderate assistance F. Toilet transfer 03-Partial/moderate assistance G. Car transfer 88-Not attempted due to medical condition or safety concerns I. Walk 10 feet 03-Partial/moderate assistance J. Walk 50 feet with two turns 02-Substantial/maximal assistance K. Walk 150 feet 88-Not attempted due to medical condition or safety concerns L. Walking 10 feet on uneven surfaces 88-Not attempted due to medical condition or safety concerns M. 1 step (curb) 88-Not attempted due to medical condition or safety concerns N. 4 steps 88-Not attempted due to medical condition or safety concerns O. 12 steps 88-Not attempted due to medical condition or safety concerns P. Picking up object 06-Independent R. Wheel 50 feet with two turns 88-Not attempted due to medical condition or safety concerns S. Wheel 150 feet 88-Not attempted due to medical condition or safety concerns - Bladder and Bowel Bladder continence 3-Incontinent daily Bowel continence 2-Frequently incontinent - Endurance Fair - Balance Fair - Safety Awareness Fair CURRENT FUNC. DEFICITS: Mobility, Endurance, Balance, Safety Awareness, and Self-Care SIGNATURE PANEL: (CDT)
[2019-06-03] MEDS: MIRTAZAPINE 15 MG TAB PO SCH (20:11)
[2019-06-03] MEDS: ATORVASTATIN 40 MG TAB PO SCH (20:12)
[2019-06-04] MEDS: PANTOPRAZOLE 40MG TABLET PO SCH (06:45)
[2019-06-04] MEDS: HYDROCODONE/APAP 10/325 TAB PO PRN ×3 (06:45→18:46)
[2019-06-04] MEDS: PROMOD 30 ML DOSE PO SCH ×2 (08:00→20:00)
[2019-06-04] MEDS: FE SULF/FA/VIT B COMP & C TAB PO SCH (08:00)
[2019-06-04] MEDS: ERYTHROMYCIN 1 APPL/1 GM TUBE EACH EYE SCH ×2 (08:00→21:54)
[2019-06-04] MEDS: LIDOCAINE 4% PATCH TOP SCH (09:02)
[2019-06-04] MEDS: KETOROLAC OPTHALMIC 5 ML BOT OPTH SCH (09:02)
[2019-06-04] MEDS: CRANBERRY FRUIT EXTRACT 200 MG CAP PO SCH ×2 (09:02→21:53)
[2019-06-04] MEDS: APIXABAN 2.5 MG TABLET PO SCH ×2 (09:03→21:53)
[2019-06-04] MEDS: FERROUS SULFATE 325 MG TAB PO SCH (09:03)
[2019-06-04] MEDS: GABAPENTIN 300 MG CAP PO SCH ×2 (09:04→21:53)
[2019-06-04] MEDS: VITAMIN B COMPLEX 1 CAP PO SCH (09:04)
[2019-06-04] MEDS: SERTRALINE HCL 100 MG TAB PO SCH (09:04)
--- NOTE | 2019-06-04 15:18 | FAST ---
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 Srinivasan Carey M.D. 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 EATING: Not assessed/no information CODE: - ORAL HYGIENE: ORAL HYGIENE - STEP 1: Does the patient complete the activity by him/herself with no assistance (physical, verbal/nonverbal cueing, setup/clean-up)? No. ORAL HYGIENE - STEP 2: Does the patient need only setup/clean-up assistance from one helper? No. ORAL HYGIENE - STEP 3: Does the patient need only verbal/nonverbal cueing or touching/steadying/contact guard assistance fro m one helper? Yes. 1. [id number] ADMISSION PERFORMANCE: Supervision or touching assistance CODE: 04 TOILETING HYGIENE: Not assessed/no information CODE: - BATHING: SHOWER/BATHE SELF - STEP 1: Does the patient complete the activity by him/herself with no assistance (physical, verbal/nonverbal cueing, setup/clean-up)? No. SHOWER/BATHE SELF - STEP 2: Does the patient need only setup/clean-up assistance from one helper? No. SHOWER/BATHE SELF - STEP 3: Does the patient need only verbal/nonverbal cueing or touching/steadying/contact guard assistance fro m one helper? Yes. 1. [id number] ADMISSION PERFORMANCE: Supervision or touching assistance CODE: 04 DRESSING - UPPER BODY: DRESSING - UPPER BODY - STEP 1: Does the patient complete the activity by him/herself with no assistance (physical, verbal/nonverbal cueing, setup/clean-up)? No. DRESSING - UPPER BODY - STEP 2: Does the patient need only setup/clean-up assistance from one helper? No. DRESSING - UPPER BODY - STEP 3: Does the patient need only verbal/nonverbal cueing or touching/steadying/contact guard assistance fro m one helper? Yes. 1. [id number] ADMISSION PERFORMANCE: Supervision or touching assistance CODE: 04 DRESSING - LOWER BODY: DRESSING - LOWER BODY - STEP 1: Does the patient complete the activity by him/herself with no assistance (physical, verbal/nonverbal cueing, setup/clean-up)? No. DRESSING - LOWER BODY - STEP 2: Does the patient need only setup/clean-up assistance from one helper? No. DRESSING - LOWER BODY - STEP 3: Does the patient need only verbal/nonverbal cueing or touching/steadying/contact guard assistance fro m one helper? Yes. 1. [id number] ADMISSION PERFORMANCE: Supervision or touching assistance CODE: 04 PUTTING ON/TAKING OFF FOOTWEAR: FOOTWEAR - STEP 1: Does the patient complete the activity by him/herself with no assistance (physical, verbal/nonverbal cueing, setup/clean-up)? No. FOOTWEAR - STEP 2: Does the patient need only setup/clean-up assistance from one helper? No. FOOTWEAR - STEP 3: Does the patient need only verbal/nonverbal cueing or touching/steadying/contact guard assistance fro m one helper? Yes. 1. [id number] ADMISSION PERFORMANCE: Supervision or touching assistance CODE: 04 DOES THE PATIENT USE A WHEELCHAIR/SCOOTER? CODE: EXPR INDICATE THE TYPE OF WHEELCHAIR/SCOOTER USED: CODE: EXPR INDICATE THE TYPE OF WHEELCHAIR/SCOOTER USED: CODE: EXPR BLADDER AND BOWEL: CODE: EXPR CODE: EXPR SIGNATURE PANEL: The following modified sections: 1. [id number] Admission Performance, 1. [id number] Admission Performance, 1. [id number] Admission Performance, 1. [id number] Admission Performance, 1. [id number] Admission Performance were [electronically] signed by SABRINA Clemens on SunJun 04 2019 15:18:05 GMT-0500 (Central Daylight Time)
--- NOTE | 2019-06-04 18:21 | R.PN ---
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 Pt denied any depression. Functional activities and transfers done with moderate to maximum assistance. Ambulated 1000' with independence using rolling walker. Up and down 15 steps with standby assistance. Patient states that pain is under control. WBC 6.7, Hgb 10.9, prealbumin 21.7. He is on promod. Speech expression done with modified independence. Ambulated 750' with independence using a rolling w alker. Up and down 15 steps independently. Self-propelled wheelchair 200' with standby assistance. VITAL SIGNS Temperature: 97.4 F SBP/DBP: 136/74 Pulse: 65 Resp: 16 MEDICATION ALLERGIES: No Known Drug Allergies (NKDA) ENVIRONMENTAL ALLERGIES: - Substance Allergies None Known - Other Allergies None Known NURSING: - Shower allowing shower - Bladder care per protocol - Skin care per protocol ACTIVITIES OOB only with supervision THERAPIES: - Orthotics/Prosthetics Orthotic Evaluation. Splinting/Casting. - Dietary and Nutrition Adequate Nutrition. Nutritional Education. Nutritional Supplements. PHYSICAL EXAM - Gen Alert and awake Lying in bed No apparent distress Oriented to: person, time, and place - Skin No skin breakdown. Normacephalic - Eyes No abnormalities - ENMT No abnormalities - Neck Bond J cervical collar is in place. - CVS RRR - Resp Clear to auscultation - Abd Soft - GI + bowel sounds Deferred - No abnormalities - Ext No significant edema - MSK 4/5 weakness in both lower extremities. - Neuro No focal deficits - Psych No abnormalities ASSESSMENT: Pt. is a 64 yo Right-handed male.On 05/13/2019 [facility] with [facility] iagnosis SEVERE CERVICAL STENOSIS AND CORD COMPRESSION.His impairment category is Spinal Cord Dysfunc tion 04 - Other Non-traumatic Spinal Cord Dysfunction (04.130).Pre-morbidly, Pt. was independent/mod -I in Locomotion, Balance, Safety Awareness, Transfers Control, Sphincter Control, Social Cognition, Self-Care, Communication, and Endurance; and he had good Locomotion, Balance, Safety Awareness, Socia l Cognition, Transfers Control, Self-Care, Sphincter Control, Communication, and Endurance.Currently, he has deficits of Locomotion, Safety Awareness, Balance, Transfers Control, Self-Care, Communicatio n, and Endurance.Pt. is now referred to [facility] for acute in-patient rehabi litation in order to maximize patient's functional independence in activities of daily living, streng th, ROM, and mobility.- Rehab Goal Patient has realistic goal of being discharged at assistance level 6-Jett to reside at Home with Fam tara/Relatives. MDM/PLAN: - Physical Therapy Gait dysfunction - to improve, our physical therapists will perform initial evaluation of pt's statu s upon admission and devise an individualized program for Gait Training, and Wheel Chair mobility Inability to transfer - to improve, our physical therapists will perform initial evaluation of pt's status upon admission and devise an individualized program for Bed mobility Need for home safety evaluation - to improve, our physical therapists will perform initial evaluatio n of pt's status upon admission and devise an individualized program for Home Evaluation Need in caregiver upon discharge - to improve, our physical therapists will perform initial evaluati on of pt's status upon admission and devise an individualized program for Caregiver Training New precaution - to improve, our physical therapists will perform initial evaluation of pt's status upon admission and devise an individualized program for Patient precaution education Edema - to improve, our physical therapists will perform initial evaluation of pt's status upon admi ssion and devise an individualized program for Elevation Training, and Lymphedema Therapy Poor balance - to improve, our physical therapists will perform initial evaluation of pt's status up on admission and devise an individualized program for Balance Training Poor endurance - to improve, our physical therapists will perform initial evaluation of pt's status upon admission and devise an individualized program for Endurance Training Weakness - to improve, our physical therapists will perform initial evaluation of pt's status upon a dmission and devise an individualized program for Aquatic Therapy, Neuromuscular Reeducation, and Str engthening Achieving independence - to improve, our physical therapists will perform initial evaluation of pt's status upon admission and devise an individualized program for Community Reintegration Activities - Occupational Therapy ADL deficits - to improve, our occupation therapists will perform initial evaluation of pt's status upon admission and devise an individualized program for Bathing, Bed mobility, Community Reintegratio n, Cooking, Dressing, Eating, Fine Motor Skills, Grooming, Homemaking, Kitchen Mobility, Laundry, Pat ient Education, Safety Awareness, Splinting - Positioning, Transfers(Toilet, Tub, Shower), and Wheel Chair Management Need for client care specialist - to improve, our occupation therapists will perform initial evaluation of pt's status upon admission and devise an individualized program for Caregiver Training Weakness - to improve, our occupation therapists will perform initial evaluation of pt's status upon admission and devise an individualized program for Aquatic Therapy, Balance, Endurance, UE ROM, and UE strengthening - Other See attached MAR (Medication Administration Record) - Diet Type Continue Regular - Diet - Liquid Texture Continue Regular - Tube Feed Continue N/A - Bladder care per protocol - Skin care per protocol - Diet - Solid Texture Continue Regular - Shower allowing shower FUNCTIONAL STATUS: UPDATED AT WEEKLY TEAM CONFERENCE - Bladder Same Bladder control device used: diaper Same Bladder medication used: NA Same accident frequency: 7-Ind - No accidents in the past 7 days - Bowel Same accident frequency: 7-Ind - No accidents in the past 7 days - Walking Same score based on distance walked: 0(N/A) Same score based on distance walked: 2(50-149ft) - Wheelchair Same score based on distance traveled: 0(N/A) FUNCTIONAL STATUS: - Self-Care A. Eating sup B. Grooming modA C. Bathing maxA D. Dressing - Upper Lev E. Dressing - Lower modA F. Toileting Lev - Sphincter Control G. Bladder control sup H. Bowel control Lev - Transfers Control I. Bed/Chair/Wheelchair maxA J. Toilet maxA K. Tub/Shower maxA - Locomotion L. Walk/Wheelchair (B) modA M. Stairs ADNO - Communication N. Comprehension (B) sup O. Expression (B) sup - Social Cognition P. Social Interaction Ind Q. Problem Solving sup R. Memory sup - Endurance Fair - Balance Poor - Safety Awareness Fair QI SCORES: - Self-Care A. Eating 06-Independent B. Oral hygiene 03-Partial/moderate assistance C. Toileting hygiene 02-Substantial/maximal assistance E. Shower/bathe self 03-Partial/moderate assistance F. Upper body dressing 03-Partial/moderate assistance G. Lower body dressing 03-Partial/moderate assistance H. Putting on/taking off footwear 03-Partial/moderate assistance - Mobility A. Roll left and right 03-Partial/moderate assistance B. Sit to lying 03-Partial/moderate assistance C. Lying to sitting on side of bed 03-Partial/moderate assistance D. Sit to stand 03-Partial/moderate assistance E. Chair/[id number] transfer 03-Partial/moderate assistance F. Toilet transfer 03-Partial/moderate assistance G. Car transfer 88-Not attempted due to medical condition or safety concerns I. Walk 10 feet 03-Partial/moderate assistance J. Walk 50 feet with two turns 02-Substantial/maximal assistance K. Walk 150 feet 88-Not attempted due to medical condition or safety concerns L. Walking 10 feet on uneven surfaces 88-Not attempted due to medical condition or safety concerns M. 1 step (curb) 88-Not attempted due to medical condition or safety concerns N. 4 steps 88-Not attempted due to medical condition or safety concerns O. 12 steps 88-Not attempted due to medical condition or safety concerns P. Picking up object 06-Independent R. Wheel 50 feet with two turns 88-Not attempted due to medical condition or safety concerns S. Wheel 150 feet 88-Not attempted due to medical condition or safety concerns - Bladder and Bowel Bladder continence 3-Incontinent daily Bowel continence 2-Frequently incontinent - Endurance Fair - Balance Fair - Safety Awareness Fair CURRENT FUNC. DEFICITS: Mobility, Endurance, Balance, Safety Awareness, and Self-Care SIGNATURE PANEL: (CDT)
[2019-06-04] MEDS: MIRTAZAPINE 15 MG TAB PO SCH (21:53)
[2019-06-04] MEDS: ATORVASTATIN 40 MG TAB PO SCH (21:54)
[2019-06-04] MEDS: MELATONIN 3 MG TABLET PO PRN (22:38)
[2019-06-05] MEDS: HYDROCODONE/APAP 10/325 TAB PO PRN ×5 (02:10→21:24)
[2019-06-05 07:05] LABS: Absolute Lymphocytes (CBC) 2.6 K/uL (0.7-4.9); Basophils % 1.5 % (0-1.3); Hematocrit 32.2 % (39.6-49.0); Lymphocytes % 38.5 % (15.3-44.8); MPV 8.6 fL (7.6-11.3); RBC Red Blood Cell Count 3.45 M/uL (4.33-5.43)
[2019-06-05] MEDS: SERTRALINE HCL 100 MG TAB PO SCH (07:31)
[2019-06-05] MEDS: KETOROLAC OPTHALMIC 5 ML BOT OPTH SCH (07:32)
[2019-06-05] MEDS: VITAMIN B COMPLEX 1 CAP PO SCH (07:32)
[2019-06-05] MEDS: CRANBERRY FRUIT EXTRACT 200 MG CAP PO SCH ×2 (07:32→21:23)
[2019-06-05] MEDS: FE SULF/FA/VIT B COMP & C TAB PO SCH (07:32)
[2019-06-05] MEDS: APIXABAN 2.5 MG TABLET PO SCH ×2 (07:32→21:23)
[2019-06-05] MEDS: PANTOPRAZOLE 40MG TABLET PO SCH (07:32)
[2019-06-05] MEDS: FERROUS SULFATE 325 MG TAB PO SCH (07:32)
[2019-06-05] MEDS: ERYTHROMYCIN 1 APPL/1 GM TUBE EACH EYE SCH ×2 (07:32→21:24)
[2019-06-05] MEDS: GABAPENTIN 300 MG CAP PO SCH ×2 (07:32→21:23)
[2019-06-05] MEDS: PROMOD 30 ML DOSE PO SCH ×2 (07:33→20:00)
[2019-06-05] MEDS: LIDOCAINE 4% PATCH TOP SCH (07:33)
[2019-06-05 07:36] LABS: ALT/SGPT 41 U/L (12-78); AST/SGOT 33 U/L (15-37); Alkaline Phosphatase 108 U/L (45-117); BUN Blood Urea Nitrogen 20 mg/dL (7-18); Bicarbonate 28 mmol/L (21-32); Bilirubin Total 0.3 mg/dL (0.2-1.0); Glucose Level 80 mg/dL (74-106); Prealbumin 22.1 mg/dL (20-40); Protein, Total 7.2 g/dL (6.4-8.2); Sodium Level 141 mmol/L (136-145)
--- NOTE | 2019-06-05 10:38 | RAD REPORT ---
EXAM DESCRIPTION: RAD - Barium Swallow Modified - 06/05/2019 10:18 am CLINICAL HISTORY: dysphagia COMPARISON: None. TECHNIQUE: The patient was given liquid, semi-solid and solid forms of barium. Lateral view fluorosc opic imaging was performed in conjunction with speech pathology service. FINDINGS: Cineloop acquisitions: 27 Fluoro time: 3 minutes 37 seconds Pharyngeal residue: mild to moderate in the vallecular and pyriform Mastication is slow but adequate. There is mild reduced lingual coordination and mild increase in or al transit. Swallow onset is timely. There is reduced base of tongue retraction, reduced laryngeal elevation and reduced contraction of the posterior pharyngeal wall. There was no penetration or aspi ration noted with any consistency. The barium tablet passed into the esophagus and remained in the m iddle of the esophagus momentarily. Tablet passed with additional pureed blous. Final pureed blous passed into the lower esophagus without incident. There is reduced opening of the upper esophageal s phincter; prominent cricopharyngens is noted. IMPRESSION: Modified barium swallow as summarized above and fully detailed on speech pathology hayes horton
--- NOTE | 2019-06-05 12:56 | FAST ---
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 Sriniavsan Carey M.D. 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 ROLL LEFT AND RIGHT: ROLL LEFT AND RIGHT - STEP 1: Does the patient complete the activity by him/herself with no assistance (physical, verbal/nonverbal cueing, setup/clean-up)? Yes. 1. [id number] ADMISSION PERFORMANCE: Independent CODE: 06 SIT TO LYING: SIT TO LYING - STEP 1: Does the patient complete the activity by him/herself with no assistance (physical, verbal/nonverbal cueing, setup/clean-up)? Yes. 1. [id number] ADMISSION PERFORMANCE: Independent CODE: 06 LYING TO SITTING: LYING TO SITTING ON SIDE OF BED - STEP 1: Does the patient complete the activity by him/herself with no assistance (physical, verbal/nonverbal cueing, setup/clean-up)? Yes. 1. [id number] ADMISSION PERFORMANCE: Independent CODE: 06 SIT TO STAND: SIT TO STAND - STEP 1: Does the patient complete the activity by him/herself with no assistance (physical, verbal/nonverbal cueing, setup/clean-up)? Yes. 1. [id number] ADMISSION PERFORMANCE: Independent CODE: 06 TRANSFERS: BED, CHAIR: CHAIR/[id number] TRANSFER - STEP 1: Does the patient complete the activity by him/herself with no assistance (physical, verbal/nonverbal cueing, setup/clean-up)? Yes. 1. [id number] ADMISSION PERFORMANCE: Independent CODE: 06 TRANSFER TOILET: TOILET TRANSFER - STEP 1: Does the patient complete the activity by him/herself with no assistance (physical, verbal/nonverbal cueing, setup/clean-up)? Yes. 1. [id number] ADMISSION PERFORMANCE: Independent CODE: 06 TRANSFERS: CAR: CAR TRANSFER - STEP 1: Does the patient complete the activity by him/herself with no assistance (physical, verbal/nonverbal cueing, setup/clean-up)? Yes. 1. [id number] ADMISSION PERFORMANCE: Independent CODE: 06 WALK 10 FEET: WALK 10 FEET - STEP 1: Does the patient complete the activity by him/herself with no assistance (physical, verbal/nonverbal cueing, setup/clean-up)? Yes. 1. [id number] ADMISSION PERFORMANCE: Independent CODE: 06 WALK 50 FEET: WALK 50 FEET - STEP 1: Does the patient complete the activity by him/herself with no assistance (physical, verbal/nonverbal cueing, setup/clean-up)? Yes. 1. [id number] ADMISSION PERFORMANCE: Independent CODE: 06 WALK 150 FEET: WALK 150 FEET - STEP 1: Does the patient complete the activity by him/herself with no assistance (physical, verbal/nonverbal cueing, setup/clean-up)? Yes. 1. [id number] ADMISSION PERFORMANCE: Independent CODE: 06 WALK 10 FEET UNEVEN: Not attempted due to medical condition or safety concerns CODE: 88 1 STEP (CURB): 1 STEP CURB - STEP 1: Does the patient complete the activity by him/herself with no assistance (physical, verbal/nonverbal cueing, setup/clean-up)? No. 1 STEP CURB - STEP 2: Does the patient need only setup/clean-up assistance from one helper? Yes. 1. [id number] ADMISSION PERFORMANCE: Setup or clean-up assistance CODE: 05 4 STEPS: 4 STEPS - STEP 1: Does the patient complete the activity by him/herself with no assistance (physical, verbal/nonverbal cueing, setup/clean-up)? No. 4 STEPS - STEP 2: Does the patient need only setup/clean-up assistance from one helper? Yes. 1. [id number] ADMISSION PERFORMANCE: Setup or clean-up assistance CODE: 05 12 STEPS: 12 STEPS - STEP 1: Does the patient complete the activity by him/herself with no assistance (physical, verbal/nonverbal cueing, setup/clean-up)? No. 12 STEPS - STEP 2: Does the patient need only setup/clean-up assistance from one helper? Yes. 1. [id number] ADMISSION PERFORMANCE: Setup or clean-up assistance CODE: 05 PICKING UP OBJECT: Not attempted due to medical condition or safety concerns CODE: 88 DOES THE PATIENT USE A WHEELCHAIR/SCOOTER? Q1. DOES THE PATIENT USE A WHEELCHAIR/SCOOTER?: Yes CODE: 1 WHEEL 50 FEET WITH TWO TURNS: WHEEL 50 FEET WITH TWO TURNS - STEP 1: Does the patient complete the activity by him/herself with no assistance (physical, verbal/nonverbal cueing, setup/clean-up)? Yes. 1. [id number] ADMISSION PERFORMANCE: Independent CODE: 06 INDICATE THE TYPE OF WHEELCHAIR/SCOOTER USED: RR1. INDICATE THE TYPE OF WHEELCHAIR/SCOOTER USED.: Manual CODE: 1 WHEEL 150 FEET: WHEEL 150 FEET - STEP 1: Does the patient complete the activity by him/herself with no assistance (physical, verbal/nonverbal cueing, setup/clean-up)? Yes. 1. [id number] ADMISSION PERFORMANCE: Independent CODE: 06 INDICATE THE TYPE OF WHEELCHAIR/SCOOTER USED: SS1. INDICATE THE TYPE OF WHEELCHAIR/SCOOTER USED.: Manual CODE: 1 BLADDER AND BOWEL: CODE: EXPR CODE: EXPR SIGNATURE PANEL: The following modified sections: 1. [id number] Admission Performance, 1. [id number] Admission Performance, 1. [id number] Admission Performance, 1. [id number] Admission Performance, 1. [id number] Admission Performance, 1. [id number] Admission Performance, 1. [id number] Admission Performance, 1. [id number] Admission Performance , 1. WO0209F Admission Performance, 1. [id number] Admission Performance, 1. [id number] Admission Performanc e, 1. [id number] Admission Performance, 1. DC3854X Admission Performance, Q1. Does the patient use a whe elchair/scooter?, 1. [id number] Admission Performance, RR1. Indicate the type of wheelchair/scooter used ., 1. KY2194X Admission Performance, Code, SS1. Indicate the type of wheelchair/scooter used. were [e lectronically] signed by Nargis Lima PTA on SunJun 05 2019 12:54:46 T-0500 ([facility] Time)
--- NOTE | 2019-06-05 17:48 | R.PN ---
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 Pt denied any depression. Functional activities and transfers done with moderate to maximum assistance. Patient states that pain is under control. WBC 6.6, Hgb 10.8, prealbumin 22.1. He is on promod. Speech expression done with modified independence. Ambulated 750' with independence using a rolling w alker. Up and down 20 steps independently. Self-propelled wheelchair 200' with standby assistance. VITAL SIGNS Temperature: 98.0 F SBP/DBP: 131/70 Pulse: 60 Resp: 16 MEDICATION ALLERGIES: No Known Drug Allergies (NKDA) ENVIRONMENTAL ALLERGIES: - Substance Allergies None Known - Other Allergies None Known NURSING: - Shower allowing shower - Bladder care per protocol - Skin care per protocol ACTIVITIES OOB only with supervision THERAPIES: - Orthotics/Prosthetics Orthotic Evaluation. Splinting/Casting. - Dietary and Nutrition Adequate Nutrition. Nutritional Education. Nutritional Supplements. PHYSICAL EXAM - Gen Alert and awake Lying in bed No apparent distress Oriented to: person, time, and place - Skin No skin breakdown. Normacephalic - Eyes No abnormalities - ENMT No abnormalities - Neck [place] J cervical collar is in place. - CVS RRR - Resp Clear to auscultation - Abd Soft - GI + bowel sounds Deferred - No abnormalities - Ext No significant edema - MSK 4/5 weakness in both lower extremities. - Neuro No focal deficits - Psych No abnormalities ASSESSMENT: Pt. is a 64 yo Right-handed male.On 05/13/2019 he was admitted to [facility] hospital with d iagnosis SEVERE CERVICAL STENOSIS AND CORD COMPRESSION.His impairment category is Spinal Cord Dysfunc tion 04 - Other Non-traumatic Spinal Cord Dysfunction (04.130).Pre-morbidly, Pt. was independent/mod -I in Locomotion, Balance, Safety Awareness, Transfers Control, Sphincter Control, Social Cognition, Self-Care, Communication, and Endurance; and he had good Locomotion, Balance, Safety Awareness, Socia l Cognition, Transfers Control, Self-Care, Sphincter Control, Communication, and Endurance.Currently, he has deficits of Locomotion, Safety Awareness, Balance, Transfers Control, Self-Care, Communicatio n, and Endurance.Pt. is now referred to [facility] for acute in-patient rehabi litation in order to maximize patient's functional independence in activities of daily living, streng th, ROM, and mobility.- Rehab Goal Patient has realistic goal of being discharged at assistance level 6-Jett to reside at Home with Fam tara/Relatives. MDM/PLAN: - Physical Therapy Gait dysfunction - to improve, our physical therapists will perform initial evaluation of pt's statu s upon admission and devise an individualized program for Gait Training, and Wheel Chair mobility Inability to transfer - to improve, our physical therapists will perform initial evaluation of pt's status upon admission and devise an individualized program for Bed mobility Need for home safety evaluation - to improve, our physical therapists will perform initial evaluatio n of pt's status upon admission and devise an individualized program for Home Evaluation Need in caregiver upon discharge - to improve, our physical therapists will perform initial evaluati on of pt's status upon admission and devise an individualized program for Caregiver Training New precaution - to improve, our physical therapists will perform initial evaluation of pt's status upon admission and devise an individualized program for Patient precaution education Edema - to improve, our physical therapists will perform initial evaluation of pt's status upon admi ssion and devise an individualized program for Elevation Training, and Lymphedema Therapy Poor balance - to improve, our physical therapists will perform initial evaluation of pt's status up on admission and devise an individualized program for Balance Training Poor endurance - to improve, our physical therapists will perform initial evaluation of pt's status upon admission and devise an individualized program for Endurance Training Weakness - to improve, our physical therapists will perform initial evaluation of pt's status upon a dmission and devise an individualized program for Aquatic Therapy, Neuromuscular Reeducation, and Str engthening Achieving independence - to improve, our physical therapists will perform initial evaluation of pt's status upon admission and devise an individualized program for Community Reintegration Activities - Occupational Therapy ADL deficits - to improve, our occupation therapists will perform initial evaluation of pt's status upon admission and devise an individualized program for Bathing, Bed mobility, Community Reintegratio n, Cooking, Dressing, Eating, Fine Motor Skills, Grooming, Homemaking, Kitchen Mobility, Laundry, Pat ient Education, Safety Awareness, Splinting - Positioning, Transfers(Toilet, Tub, Shower), and Wheel Chair Management Need for pediatric acute care unit nurse - to improve, our occupation therapists will perform initial evaluation of pt's status upon admission and devise an individualized program for Caregiver Training Weakness - to improve, our occupation therapists will perform initial evaluation of pt's status upon admission and devise an individualized program for Aquatic Therapy, Balance, Endurance, UE ROM, and UE strengthening - Other See attached MAR (Medication Administration Record) - Diet Type Continue Regular - Diet - Liquid Texture Continue Regular - Tube Feed Continue N/A - Bladder care per protocol - Skin care per protocol - Diet - Solid Texture Continue Regular - Shower allowing shower FUNCTIONAL STATUS: UPDATED AT WEEKLY TEAM CONFERENCE - Bladder Same Bladder control device used: diaper Same Bladder medication used: NA Same accident frequency: 7-Ind - No accidents in the past 7 days - Bowel Same accident frequency: 7-Ind - No accidents in the past 7 days - Walking Same score based on distance walked: 0(N/A) Same score based on distance walked: 2(50-149ft) - Wheelchair Same score based on distance traveled: 0(N/A) FUNCTIONAL STATUS: - Self-Care A. Eating sup B. Grooming modA C. Bathing maxA D. Dressing - Upper Lev E. Dressing - Lower modA F. Toileting Lev - Sphincter Control G. Bladder control sup H. Bowel control Lev - Transfers Control I. Bed/Chair/Wheelchair maxA J. Toilet maxA K. Tub/Shower maxA - Locomotion L. Walk/Wheelchair (B) modA M. Stairs ADNO - Communication N. Comprehension (B) sup O. Expression (B) sup - Social Cognition P. Social Interaction Ind Q. Problem Solving sup R. Memory sup - Endurance Fair - Balance Poor - Safety Awareness Fair QI SCORES: - Self-Care A. Eating 06-Independent B. Oral hygiene 03-Partial/moderate assistance C. Toileting hygiene 02-Substantial/maximal assistance E. Shower/bathe self 03-Partial/moderate assistance F. Upper body dressing 03-Partial/moderate assistance G. Lower body dressing 03-Partial/moderate assistance H. Putting on/taking off footwear 03-Partial/moderate assistance - Mobility A. Roll left and right 03-Partial/moderate assistance B. Sit to lying 03-Partial/moderate assistance C. Lying to sitting on side of bed 03-Partial/moderate assistance D. Sit to stand 03-Partial/moderate assistance E. Chair/hup-kc-vrxhg transfer 03-Partial/moderate assistance F. Toilet transfer 03-Partial/moderate assistance G. Car transfer 88-Not attempted due to medical condition or safety concerns I. Walk 10 feet 03-Partial/moderate assistance J. Walk 50 feet with two turns 02-Substantial/maximal assistance K. Walk 150 feet 88-Not attempted due to medical condition or safety concerns L. Walking 10 feet on uneven surfaces 88-Not attempted due to medical condition or safety concerns M. 1 step (curb) 88-Not attempted due to medical condition or safety concerns N. 4 steps 88-Not attempted due to medical condition or safety concerns O. 12 steps 88-Not attempted due to medical condition or safety concerns P. Picking up object 06-Independent R. Wheel 50 feet with two turns 88-Not attempted due to medical condition or safety concerns S. Wheel 150 feet 88-Not attempted due to medical condition or safety concerns - Bladder and Bowel Bladder continence 3-Incontinent daily Bowel continence 2-Frequently incontinent - Endurance Fair - Balance Fair - Safety Awareness Fair CURRENT FUNC. DEFICITS: Mobility, Endurance, Balance, Safety Awareness, and Self-Care SIGNATURE PANEL: (CDT)
[2019-06-05] MEDS: ATORVASTATIN 40 MG TAB PO SCH (21:23)
[2019-06-05] MEDS: MIRTAZAPINE 15 MG TAB PO SCH (21:23)
[2019-06-05] MEDS: MELATONIN 3 MG TABLET PO PRN (21:24)
[2019-06-06] MEDS: HYDROCODONE/APAP 10/325 TAB PO PRN ×4 (07:31→21:13)
[2019-06-06] MEDS: GABAPENTIN 300 MG CAP PO SCH ×2 (07:34→21:04)
[2019-06-06] MEDS: FERROUS SULFATE 325 MG TAB PO SCH (07:34)
[2019-06-06] MEDS: PANTOPRAZOLE 40MG TABLET PO SCH (07:34)
[2019-06-06] MEDS: CRANBERRY FRUIT EXTRACT 200 MG CAP PO SCH ×2 (07:34→21:04)
[2019-06-06] MEDS: VITAMIN B COMPLEX 1 CAP PO SCH (07:34)
[2019-06-06] MEDS: SERTRALINE HCL 100 MG TAB PO SCH (07:37)
[2019-06-06] MEDS: KETOROLAC OPTHALMIC 5 ML BOT OPTH SCH (07:37)
[2019-06-06] MEDS: FE SULF/FA/VIT B COMP & C TAB PO SCH (07:37)
[2019-06-06] MEDS: APIXABAN 2.5 MG TABLET PO SCH ×2 (07:37→21:05)
[2019-06-06] MEDS: PROMOD 30 ML DOSE PO SCH ×2 (07:39→20:00)
[2019-06-06] MEDS: ERYTHROMYCIN 1 APPL/1 GM TUBE EACH EYE SCH ×2 (07:39→21:06)
[2019-06-06] MEDS: LIDOCAINE 4% PATCH TOP SCH (09:09)
--- NOTE | 2019-06-06 09:59 | P.RH.PN ---
Estimated Length of Stay: 24 Expected Discharge Date: 06/08/19 Discharge Disposition Plan: Home Family Support: Yes Longterm Goal: Mobility, Transfers, Self Care Vital Signs: Last Vital Signs Temp 98 F 06/06/19 06:59 Pulse 65 06/06/19 06:59 Resp 18 06/06/19 07:31 BP 152/82 H 06/06/19 06:59 Pulse Ox 100 06/06/19 07:31 Laboratory: Laboratory Last Values WBC 6.6 K/uL (4.3-10.9) 06/05/19 06:09 RBC 3.45 M/uL (4.33-5.43) L 06/05/19 06:09 Hgb 10.8 g/dL (13.6-17.9) L 06/05/19 06:09 Hct 32.2 % (39.6-49.0) L 06/05/19 06:09 MCV 93.3 fL (80-100) 06/05/19 06:09 MCH 31.4 pg (27.0-35.0) 06/05/19 06:09 MCHC 33.6 g/dL (32.0-36.0) 06/05/19 06:09 RDW 14.7 % (12.1-15.2) 06/05/19 06:09 Plt Count 276 K/uL (152-406) D 06/05/19 06:09 MPV 8.6 fL (7.6-11.3) 06/05/19 06:09 Neutrophils % 42.8 % (41.7-73.7) 06/05/19 06:09 Lymphocytes % 38.5 % (15.3-44.8) 06/05/19 06:09 Monocytes % 11.2 % (3.3-12.3) 06/05/19 06:09 Eosinophils % 6.0 % (0-4.4) H 06/05/19 06:09 Basophils % 1.5 % (0-1.3) H 06/05/19 06:09 Absolute Neutrophils 2.8 K/uL (1.8-8.0) 06/05/19 06:09 Absolute Lymphocytes 2.6 K/uL (0.7-4.9) 06/05/19 06:09 Absolute Monocytes 0.7 K/uL (0.1-1.3) 06/05/19 06:09 Absolute Eosinophils 0.4 K/uL (0-0.5) 06/05/19 06:09 Absolute Basophils 0.1 K/uL (0-0.5) 06/05/19 06:09 Sodium 141 mmol/L (136-145) 06/05/19 06:09 Potassium 4.0 mmol/L (3.5-5.1) 06/05/19 06:09 Chloride 107 mmol/L (98-107) 06/05/19 06:09 Carbon Dioxide 28 mmol/L (21-32) 06/05/19 06:09 BUN 20 mg/dL (7-18) H 06/05/19 06:09 Creatinine 0.78 mg/dL (0.55-1.3) 06/05/19 06:09 Estimated GFR > 90 mL/min (=/>90) 06/05/19 06:09 Glucose 80 mg/dL (74-106) 06/05/19 06:09 Calcium 8.7 mg/dL (8.5-10.1) 06/05/19 06:09 Magnesium 2.0 mg/dL (1.8-2.4) 06/05/19 06:09 Total Bilirubin 0.3 mg/dL (0.2-1.0) 06/05/19 06:09 AST 33 U/L (15-37) 06/05/19 06:09 ALT 41 U/L (12-78) 06/05/19 06:09 Alkaline Phosphatase 108 U/L (45-117) 06/05/19 06:09 Serum Total Protein 7.2 g/dL (6.4-8.2) 06/05/19 06:09 Albumin 3.0 g/dL (3.4-5.0) L 06/05/19 06:09 Globulin 4.2 g/dL (2.3-3.5) H 06/05/19 06:09 Albumin/Globulin Ratio 0.7 (1.1-1.8) L 06/05/19 06:09 Prealbumin 22.1 mg/dL (20-40) 06/05/19 06:09 Urine Color Yellow 05/17/19 17:35 Urine Appearance Turbid 05/17/19 17:35 Urine pH 6.0 (5.0-7.0) 05/17/19 17:35 Ur Specific [place] 1.015 (1.005-1.030) 05/17/19 17:35 Glucose (UA)(Auto) Negative (NEG) 05/17/19 17:35 Urine Ketones Negative (NEG) 05/17/19 17:35 Urine Blood 3+ (NEG) H 05/17/19 17:35 Urine Nitrite Negative (NEG) 05/17/19 17:35 Urine Bilirubin Negative (NEG) 05/17/19 17:35 Urine Urobilinogen 2.0 mg/dL (0.2-1.0) H 05/17/19 17:35 Ur Leukocyte Esterase 3+ (NEG) H 05/17/19 17:35 Urine RBC <5 /HPF (NONE SEEN) 05/17/19 17:35 Urine WBC Tntc /HPF (<5) H 05/17/19 17:35 Ur Squamous Epith Cells <5 /HPF (NONE SEEN) 05/17/19 17:35 Urine Bacteria Loaded /HPF (NONE SEEN) H 05/17/19 17:35 Urine Culture Reflexed Reflexed 05/17/19 17:35 Urine Total Protein 1+ (NEG) H 05/17/19 17:35 Weight: 133 lb 6.4 oz Wound Present: Yes Closed Surgical Incision Present: Yes Negative Pressure Wound Therapy Present: No Physician Update: Labs reviewed and are stable. He is doing well with speech therapy and passed all swallowing evaluations. He needs supervision with activities of daily living. He is doing well with physical therapy. He will be discharged on the . His soft collar is ordered and will be given to the patient. Functional Improvement: Patient has met all short-term goals at this time and is progressing well toward meeting all long-term goals. Patient has good work ethic and safety awareness. Patient's technique for transfers, balance, and gait tx. have all improved well over the course of tx. Speech Therapy Update: Patient obtained a 22/30 on the MOCA indicating a mild cognitive impairment characterized by impaired visuospatial skills, reduced attention and calculation, STM deficits, and decreased mental flexibility. Patient had an MBS study which revealed mild-moderate oropharyngeal dysphagia. Patient placed on a mechanical soft diet with nectar thickened liquids. Summary: Patient's care plan and custodial goals have been reviewed and revised as necessary. Please see the Rehabilitation Signature page for all necessary signatures.
--- NOTE | 2019-06-06 15:44 | FAST ---
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 Srinivasan Carey M.D. 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 EATING: Not assessed/no information CODE: - ORAL HYGIENE: ORAL HYGIENE - STEP 1: Does the patient complete the activity by him/herself with no assistance (physical, verbal/nonverbal cueing, setup/clean-up)? Yes. 1. [id number] ADMISSION PERFORMANCE: Independent CODE: 06 TOILETING HYGIENE: Not assessed/no information CODE: - BATHING: SHOWER/BATHE SELF - STEP 1: Does the patient complete the activity by him/herself with no assistance (physical, verbal/nonverbal cueing, setup/clean-up)? Yes. 1. [id number] ADMISSION PERFORMANCE: Independent CODE: 06 DRESSING - UPPER BODY: DRESSING - UPPER BODY - STEP 1: Does the patient complete the activity by him/herself with no assistance (physical, verbal/nonverbal cueing, setup/clean-up)? Yes. 1. [id number] ADMISSION PERFORMANCE: Independent CODE: 06 DRESSING - LOWER BODY: DRESSING - LOWER BODY - STEP 1: Does the patient complete the activity by him/herself with no assistance (physical, verbal/nonverbal cueing, setup/clean-up)? Yes. 1. [id number] ADMISSION PERFORMANCE: Independent CODE: 06 PUTTING ON/TAKING OFF FOOTWEAR: FOOTWEAR - STEP 1: Does the patient complete the activity by him/herself with no assistance (physical, verbal/nonverbal cueing, setup/clean-up)? Yes. 1. [id number] ADMISSION PERFORMANCE: Independent CODE: 06 DOES THE PATIENT USE A WHEELCHAIR/SCOOTER? CODE: EXPR INDICATE THE TYPE OF WHEELCHAIR/SCOOTER USED: CODE: EXPR INDICATE THE TYPE OF WHEELCHAIR/SCOOTER USED: CODE: EXPR BLADDER AND BOWEL: CODE: EXPR CODE: EXPR SIGNATURE PANEL: The following modified sections: 1. [id number] Admission Performance, 1. [id number] Admission Performance, 1. [id number] Admission Performance, 1. [id number] Admission Performance, 1. [id number] Admission Performance were [electronically] signed by SABRINA Clemens on SunJun 06 2019 15:43:14 GMT-0500 (Central Daylight Time)
[2019-06-06] MEDS: ATORVASTATIN 40 MG TAB PO SCH (21:04)
[2019-06-06] MEDS: MIRTAZAPINE 15 MG TAB PO SCH (21:05)
[2019-06-06] MEDS: MELATONIN 3 MG TABLET PO PRN (21:13)
[2019-06-06] MEDS: DOCUSATE NA/SENNA CONC 1 TAB PO PRN (21:14)
--- NOTE | 2019-06-07 02:28 | FAST ---
SHIFT START DATE/TIME: 06/06/2019 19:00 (CDT) SHIFT END DATE/TIME: 06/07/2019 07:00 (CDT) NAME SHON PANG DATE OF : 1955 DATE OF ADMISSION: 05/16/2019 18:22 ([employer]) PHONE: AGE: 64 N# [id number] GENDER: Male ENCOUNTER PHYSICIAN: Dr. Srinivasan Carey M.D. 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 EATING: Not assessed/no information CODE: - ORAL HYGIENE: Not assessed/no information CODE: - TOILETING HYGIENE: TOILETING HYGIENE - STEP 1: Does the patient complete the activity by him/herself with no assistance (physical, verbal/nonverbal cueing, setup/clean-up)? No. TOILETING HYGIENE - STEP 2: Does the patient need only setup/clean-up assistance from one helper? No. TOILETING HYGIENE - STEP 3: Does the patient need only verbal/nonverbal cueing or touching/steadying/contact guard assistance fro m one helper? Yes. 1. [id number] ADMISSION PERFORMANCE: Supervision or touching assistance CODE: 04 BATHING: Not assessed/no information CODE: - DRESSING - UPPER BODY: Not assessed/no information CODE: - DRESSING - LOWER BODY: Not assessed/no information CODE: - PUTTING ON/TAKING OFF FOOTWEAR: Not assessed/no information CODE: - ROLL LEFT AND RIGHT: Not assessed/no information CODE: - SIT TO LYING: SIT TO LYING - STEP 1: Does the patient complete the activity by him/herself with no assistance (physical, verbal/nonverbal cueing, setup/clean-up)? No. SIT TO LYING - STEP 2: Does the patient need only setup/clean-up assistance from one helper? No. SIT TO LYING - STEP 3: Does the patient need only verbal/nonverbal cueing or touching/steadying/contact guard assistance fro m one helper? Yes. 1. [id number] ADMISSION PERFORMANCE: Supervision or touching assistance CODE: 04 LYING TO SITTING: LYING TO SITTING ON SIDE OF BED - STEP 1: Does the patient complete the activity by him/herself with no assistance (physical, verbal/nonverbal cueing, setup/clean-up)? No. LYING TO SITTING ON SIDE OF BED - STEP 2: Does the patient need only setup/clean-up assistance from one helper? No. LYING TO SITTING ON SIDE OF BED - STEP 3: Does the patient need only verbal/nonverbal cueing or touching/steadying/contact guard assistance fro m one helper? Yes. 1. [id number] ADMISSION PERFORMANCE: Supervision or touching assistance CODE: 04 SIT TO STAND: SIT TO STAND - STEP 1: Does the patient complete the activity by him/herself with no assistance (physical, verbal/nonverbal cueing, setup/clean-up)? No. SIT TO STAND - STEP 2: Does the patient need only setup/clean-up assistance from one helper? No. SIT TO STAND - STEP 3: Does the patient need only verbal/nonverbal cueing or touching/steadying/contact guard assistance fro m one helper? Yes. 1. [id number] ADMISSION PERFORMANCE: Supervision or touching assistance CODE: 04 TRANSFERS: BED, CHAIR: CHAIR/[id number] TRANSFER - STEP 1: Does the patient complete the activity by him/herself with no assistance (physical, verbal/nonverbal cueing, setup/clean-up)? No. CHAIR/[id number] TRANSFER - STEP 2: Does the patient need only setup/clean-up assistance from one helper? No. CHAIR/[id number] TRANSFER - STEP 3: Does the patient need only verbal/nonverbal cueing or touching/steadying/contact guard assistance fro m one helper? Yes. 1. [id number] ADMISSION PERFORMANCE: Supervision or touching assistance CODE: 04 TRANSFER TOILET: TOILET TRANSFER - STEP 1: Does the patient complete the activity by him/herself with no assistance (physical, verbal/nonverbal cueing, setup/clean-up)? No. TOILET TRANSFER - STEP 2: Does the patient need only setup/clean-up assistance from one helper? No. TOILET TRANSFER - STEP 3: Does the patient need only verbal/nonverbal cueing or touching/steadying/contact guard assistance fro m one helper? Yes. 1. [id number] ADMISSION PERFORMANCE: Supervision or touching assistance CODE: 04 TRANSFERS: CAR: Not assessed/no information CODE: - WALK 10 FEET: Not assessed/no information CODE: - 1 STEP (CURB): Not assessed/no information CODE: - PICKING UP OBJECT: Not assessed/no information CODE: - DOES THE PATIENT USE A WHEELCHAIR/SCOOTER? CODE: EXPR WHEEL 50 FEET WITH TWO TURNS: Not assessed/no information CODE: - INDICATE THE TYPE OF WHEELCHAIR/SCOOTER USED: CODE: EXPR WHEEL 150 FEET: Not assessed/no information CODE: - INDICATE THE TYPE OF WHEELCHAIR/SCOOTER USED: CODE: EXPR BLADDER AND BOWEL: H350. BLADDER CONTINENCE (3-DAY ASSESSMENT PERIOD): Incontinent daily (at least once a day) CODE: 3 H400. BOWEL CONTINENCE (3-DAY ASSESSMENT PERIOD): Occasionally incontinent (one episode of bowel incontinence) CODE: 1
[2019-06-07] MEDS: HYDROCODONE/APAP 10/325 TAB PO PRN ×4 (04:50→21:49)
[2019-06-07 05:39] VITALS: BMI 23.1
[2019-06-07] MEDS: LIDOCAINE 4% PATCH TOP SCH (07:32)
[2019-06-07] MEDS: PANTOPRAZOLE 40MG TABLET PO SCH (07:32)
[2019-06-07] MEDS: KETOROLAC OPTHALMIC 5 ML BOT OPTH SCH (07:32)
[2019-06-07] MEDS: FE SULF/FA/VIT B COMP & C TAB PO SCH (07:34)
[2019-06-07] MEDS: APIXABAN 2.5 MG TABLET PO SCH ×2 (07:34→20:16)
[2019-06-07] MEDS: GABAPENTIN 300 MG CAP PO SCH ×2 (07:34→20:17)
[2019-06-07] MEDS: FERROUS SULFATE 325 MG TAB PO SCH (07:34)
[2019-06-07] MEDS: SERTRALINE HCL 100 MG TAB PO SCH (07:34)
[2019-06-07] MEDS: CRANBERRY FRUIT EXTRACT 200 MG CAP PO SCH ×2 (07:34→20:16)
[2019-06-07] MEDS: VITAMIN B COMPLEX 1 CAP PO SCH (07:34)
[2019-06-07] MEDS: PROMOD 30 ML DOSE PO SCH ×2 (07:35→20:00)
[2019-06-07] MEDS: methocarbamoL 500 MG TAB PO PRN (08:15)
[2019-06-07] MEDS: ERYTHROMYCIN 1 APPL/1 GM TUBE EACH EYE SCH ×2 (08:17→20:17)
[2019-06-07] MEDS: ATORVASTATIN 40 MG TAB PO SCH (20:17)
[2019-06-07] MEDS: MIRTAZAPINE 15 MG TAB PO SCH (20:17)
[2019-06-07] MEDS: MELATONIN 3 MG TABLET PO PRN (21:48)
[2019-06-08 07:23] VITALS: TEMP 97.4
[2019-06-08] MEDS: PANTOPRAZOLE 40MG TABLET PO SCH (07:48)
[2019-06-08] MEDS: LIDOCAINE 4% PATCH TOP SCH (07:48)
[2019-06-08] MEDS: HYDROCODONE/APAP 10/325 TAB PO PRN ×2 (07:48→11:23)
[2019-06-08] MEDS: FE SULF/FA/VIT B COMP & C TAB PO SCH (07:49)
[2019-06-08] MEDS: APIXABAN 2.5 MG TABLET PO SCH (07:49)
[2019-06-08] MEDS: CRANBERRY FRUIT EXTRACT 200 MG CAP PO SCH (07:49)
[2019-06-08] MEDS: FERROUS SULFATE 325 MG TAB PO SCH (07:49)
[2019-06-08] MEDS: SERTRALINE HCL 100 MG TAB PO SCH (07:49)
[2019-06-08] MEDS: VITAMIN B COMPLEX 1 CAP PO SCH (07:49)
[2019-06-08] MEDS: ERYTHROMYCIN 1 APPL/1 GM TUBE EACH EYE SCH (07:50)
[2019-06-08] MEDS: GABAPENTIN 300 MG CAP PO SCH (07:50)
[2019-06-08] MEDS: KETOROLAC OPTHALMIC 5 ML BOT OPTH SCH (07:51)
[2019-06-08] MEDS: PROMOD 30 ML DOSE PO SCH (07:51)
[2019-06-08 11:25] VITALS: BP 119/67
== END 2019-06-08 11:30 | disposition home health service (06) | DRG 552 ==
LOC: 5TH 05-16 18:22
PROVIDERS: ADMIT Psychiatry & Neurology Neurology with Special Qualifications in Child Neurology; ATTEND Psychiatry & Neurology Neurology with Special Qualifications in Child Neurology
DX: M48.02 Spinal stenosis, cervical region (principal); G99.2 Myelopathy in diseases classified elsewhere; N39.0 Urinary tract infection, site not specified; R13.10 Dysphagia, unspecified; F41.8 Other specified anxiety disorders; H02.0 Entropion and trichiasis of eyelid; S05.01XA Injury of conjunctiva and corneal abrasion without foreign body, right eye, initial encounter; X58.XXXA Exposure to other specified factors, initial encounter; Y92.9 Unspecified place or not applicable
CPT/HCPCS: 36415; 71045; 74230; 80048; 80053; 81001; 82040; 83735; 84134; 85025; 87077; 87086; 87088; 87186; 90471; 92507; 92523; 92526; 92610; 92611; 97110; 97112; 97116; 97124; 97127; 97161; 97167; 97530; 97542